=== PATIENT | male | born 1940 | race Caucasian/White ===

== ENCOUNTER 2018-11-22 07:32 | Emergency (ER) | payer OTHER, MEDICARE ==
--- OUTSIDE RECORDS SUMMARY | 2018-11-22 07:34 | XMS REPORT | Clinical Summary ---
:1940 Author Organization [facility] Address [address] [place] [address] Care Team Providers Name Role Phone Roosevelt Abdalla MD Primary Care Provider Allergies No Known Allergies Medications Medication Sig Dispensed Refills Start Date End Date Status rosuvastatin (CRESTOR) Take 40 mg by 0 Active 40 MG tablet mouth. valsartan-hydrochlorothi Take 1 tablet by 0 Active azide (DIOVAN-HCT) mouth. 160-12.5 mg per tablet pantoprazole (PROTONIX) Take 40 mg by 0 Active 40 MG EC tablet mouth. clopidogrel (PLAVIX) 300 Take 300 mg by 0 Active mg tablet mouth once. celecoxib (CeleBREX) 200 Take 200 mg by 0 Active MG capsule mouth 2 (two) times a day. docosahexanoic acid/epa Take by mouth. 0 Active (FISH OIL ORAL) Active Problems Problem Noted Date Spinal stenosis of lumbar region with neurogenic claudication 03/30/2018 Overview: Added automatically from request for surgery [id number] Spinal stenosis of lumbar region 03/30/2018 Overview: Added automatically from request for surgery [id number] Right lumbar radiculopathy 03/30/2018 Overview: Added automatically from request for surgery [id number] Encounters Date Type Specialty Care Team Description 06/22/2018 Office Visit Neurosurgery Jeffrey Ritchie Spinal stenosis of lumbar region with neurogenic claudication (Primary Dx); MD Huber Lumbar radiculopathy 04/14/2018 Surgery General Surgery Jeffrey Ritchie L2-3 MD Huber LAMINECTOMY/DECOMPRESSI ON WITH COFLEX STABILIZATION 04/14/2018 Anesthesia Event General Surgery Judith Cordero FNP-Jimmie 04/14/2018 Hospital Encounter General Surgery Jeffrey Ritchie Spinal stenosis of lumbar region with neurogenic claudication (Primary Dx); MD Huber Right lumbar radiculopathy 04/14/2018 Orders Only Neurosurgery Jeffrey Ritchie MD 03/30/2018 Hospital Encounter Radiology Jeffrey Ritchie MD 03/30/2018 Orders Only Neurosurgery Jeffrey Ritchie Spinal stenosis of lumbar region with neurogenic claudication (Primary Dx); MD Huber Spinal stenosis of lumbar region, unspecified whether neurogenic claudication present; Right lumbar radiculopathy 03/23/2018 Office Visit Neurosurgery Jeffrey Ritchie Spinal stenosis of lumbar region with neurogenic claudication (Primary Dx); MD Huber Spinal stenosis of lumbar region, unspecified whether neurogenic claudication present; Lumbar radiculopathy 01/01/2018 Consult Neurosurgery Jeffrey Ritchie Spinal stenosis of lumbar region with neurogenic claudication (Primary Dx); MD Huber Right lumbar radiculopathy after 11/21/2017 Family History Medical History Relation Name Comments Cancer Brother No Known Problems Brother Cancer Father Heart disease Mother Relation Name Status Comments Brother Brother Father Mother Sister Alive Social History Tobacco Use Types Packs/Day Years Used Date Never Smoker Smokeless Tobacco: Never Used Alcohol Use Drinks/Week oz/Week Comments Yes 35 Shots of liquor 21.0 Sex Assigned at Date Recorded Not on file Job Start Date Occupation Industry Not on file Not on file Not on file Travel History Travel Start Travel End No recent travel history available. Last Filed Vital Signs Vital Sign Reading Time Taken Blood Pressure 146/64 06/22/2018 2:08 PM [facility] Pulse 80 06/22/2018 2:08 PM [facility] Temperature 36.1 C (97 F) 04/14/2018 2:00 PM [facility] Respiratory Rate 16 04/14/2018 3:00 PM [facility] Oxygen Saturation 99% 04/14/2018 3:00 PM [facility] Inhaled Oxygen Concentration - - Weight 93 kg (205 lb) 06/22/2018 2:08 PM [facility] Height 167.6 cm (5' 6") 06/22/2018 2:08 PM [facility] Body Mass Index 33.09 06/22/2018 2:08 PM [facility] Plan of Treatment Health Maintenance Due Date Last Done Comments COLONOSCOPY SCREENING 02/03/1992 SHINGLES VACCINES (#1) 02/03/1992 65+ PNEUMOCOCCAL VACCINE (1 of 2 - PCV13) 2007 INFLUENZA VACCINE 11/18/2018 Implants Implanted Type Area Camp Advisor Device Shelf Model / Identifier Expiration Serial / Lot Date 8mm Coflex Implant - [id number] IMPLANT N/A: [employer] SPINE 2020 [id number] / Implanted: Qty: 1 on 04/14/2018 by Jeffrey Ritchie MD DEVICES N/A / [id number] Procedures Procedure Name Priority Date/Time Associated Comments Diagnosis OR FL > 1 HOUR Routine 04/14/2018 12:04 Results for this PM [facility] procedure are in the results section. AL AN ELECTIVE Routine 04/14/2018 10:27 ENDOTRACHEAL AIRWAY AM [facility] Procedure Note - Drake Duarte CRNA - 04/14/2018 10:27 AM [facility] ANESTHESIA INTUBATION Performed by: Drake Duarte CRNA Authorized by: Harpreet Shoer MD Location: OR Urgency: Elective Difficult Airway: No Anesthesiologist: Harpreet Shore MD Resident/TELECOM SALES CONSULTANT/AA: Drake Duarte CRNA Performed by: resident/TELECOM SALES CONSULTANT/AA Preoxygenated with 100% O2: Yes C-spine Precautions Maintained Throughout: Yes Mask Ventilation: Easy mask Final Airway Type: Endotracheal airway Final Endotracheal Airway: ETT Cuffed: Yes Technique Used: Direct laryngoscopy Devices/Methods Used in Placement: Intubating stylet Insertion Site: Oral Blade Type: Leiva Laryngoscope Blade/Videolaryngoscope Blade Size: 2 ETT Size (mm): 8.0 Cuff at minimum occlusion pressure: Yes Measured from: Teeth ETT to Teeth (cm): 22 Placement Verified by: CO2 detection and direct visualization Laryngoscopic view: Grade I - full view of glottis Rapid Sequence Induction (RSI): No Modified RSI: No Number of Attempts at Approach: 1 Atraumatic intubation, dentition and soft tissue remain unchanged. MRI SPINE EXTERNAL STUDY Routine 12/08/2017 3:27 PM CDT after 11/21/2017 Results OR FL > I Hour (04/14/2018 12:04 PM [facility]) Specimen Narrative Performed At EXAMINATION:OR FL 1 HOUR HM RADIANT C-arm fluoroscopy was requested in OR. L2-3 L [facility] OR 10 KODAK 6 14.38 mGy 40 sec IMPRESSION: Separate operative report will be issued by the physician performing the procedure. [id number] Procedure Note Hm Interface, Radiology Results Incoming - 04/14/2018 1:11 PM [facility] EXAMINATION: OR FL 1 HOUR C-arm fluoroscopy was requested in OR. L2-3 L [facility]I OR 10 KODAK 6 14.38 mGy 40 sec IMPRESSION: Separate operative report will be issued by the physician performing the procedure. [id number] Performing Organization Address City/[facility]/Zipcode Phone Number [facility] [address] [place] [address] MRI Spine External Study (12/08/2017 3:27 PM CDT) Specimen Narrative Performed At This exam was not acquired at a [facility] facility and has not been [facility] interpreted by a [facility] Provider.The exam was imported into our imaging system for comparisons purposes. Performing Organization Address [facility] Phone Number [facility] [address] [place] [address] after 11/21/2017 Insurance Payer Benefit Plan / Subscriber ID Effective Dates Phone Address Type Group MEDICARE MEDICARE PART A xxxxxxxxxxx 2007-[place], [place] Medicare AND B t AARP AARP SUPPLEMENT xxxxxxxxxxx 2016-Present Commercial Advance Directives Patient has advance care planning documents on file. For more information, please contact:[address] [place] [address]
--- OUTSIDE RECORDS SUMMARY | 2018-11-22 07:35 | XMS REPORT ---
:1940 [facility] Address [address] [place] [address] Dr. Garcia [address] [place] [id number] Care Team Providers Name Role Phone Unavailable Unavailable Unavailable Problems This patient has no known problems. Allergies, Adverse Reactions, Alerts This patient has no known allergies or adverse reactions. Medications This patient has no known medications.
[2018-11-22 08:20] LABS: Absolute Lymphocytes (CBC) 1.7 K/uL (0.7-4.9); Hematocrit 45.4 % (39.6-49.0); Lymphocytes % 22.7 % (15.3-44.8); MPV 7.8 fL (7.6-11.3)
[2018-11-22] MEDS ORDERED: THIAMINE 200 MG/2 ML INJ ONE (08:23)
[2018-11-22] MEDS ORDERED: NA CHLORIDE 0.9% 500 ML ONE (08:24)
[2018-11-22] MEDS ORDERED: FOLIC ACID 5 MG/ML VIAL ONE (08:25)
[2018-11-22 08:26] LABS: Protime INR 0.96
--- NOTE | 2018-11-22 08:40 | RAD REPORT ---
EXAM DESCRIPTION: CT - Head Brain Wo Cont - 11/22/2018 8:24 am CLINICAL HISTORY: Transient alteration of awareness COMPARISON: MRI January 2018 TECHNIQUE: Axial 5 mm thick images of the head were obtained without IV contrast. All CT scans are performed using dose optimization technique as appropriate and may include automated exposure control or mA/KV adjustment according to patient size. FINDINGS: No intracranial hemorrhage, mass, edema or shift of mid-line structures. No acute cortical based infarction. No cortical edema or sulcal effacement. A 2.3 centimeter area of diminished attenu ation lateral margin of the right frontal -parietal lobe junction has the appearance of remote CVA. T his involves cortical and subcortical tissue. Moderate atrophy changes are present. Moderate severity chronic ischemic change also present. No abnormal extra-axial fluid collections. Ventricles are in p roportion to the volume loss. Arterial tree and physiologic calcifications are present. Mastoid air cells and visualized portions of the paranasal sinuses are clear. No acute bony findings. IMPRESSION: No hemorrhage, mass, edema or emergent intracranial finding. No acute infarction changes are present. 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 Ventricular size is in proportion to the amount of volume loss.
[2018-11-22 08:57] LABS: ALT/SGPT 24 U/L (12-78); AST/SGOT 23 U/L (15-37); Albumin 3.9 g/dL (3.4-5.0); Alkaline Phosphatase 78 U/L (45-117); BUN Blood Urea Nitrogen 14 mg/dL (7-18); Bicarbonate 26 mmol/L (21-32); Bilirubin Direct 0.2 mg/dL (0-0.2); Bilirubin Total 0.8 mg/dL (0.2-1.0); Glucose Level 82 mg/dL (74-106); Magnesium 2.1 mg/dL (1.8-2.4); NT PRO-BNP 804 pg/mL (<450); Potassium 3.9 mmol/L (3.5-5.1); Protein, Total 7.4 g/dL (6.4-8.2); Sodium Level 142 mmol/L (136-145); Troponin (Emerg Dept Use Only) 0.05 ng/mL (0.0-0.045)
--- NOTE | 2018-11-22 09:22 | EKG ---
Test Date: 2018-11-22 Test Time: 08:14:03 Rubber Mill Operator: BRADFORD MEASUREMENT RESULTS: Intervals: Rate: 53 NJ: 154 QRSD: 94 QT: 460 QTc: 431 Vernon: P: 60 NJ: 154 QRS: 40 T: 30 INTERPRETIVE STATEMENTS: Sinus bradycardia Otherwise normal ECG Compared to ECG 03/18/2016 11:10:27 Sinus rhythm no longer present Electronically Signed On 11-22-18 09:21:27 CDT by Rod Hernandez
--- NOTE | 2018-11-22 09:35 | RAD REPORT ---
EXAM DESCRIPTION: RAD - Chest Single View - 11/22/2018 8:45 am CLINICAL HISTORY: Altered mental status, shortness of breath COMPARISON: November 02 TECHNIQUE: AP portable chest image was obtained 0840 hours . FINDINGS: Lung volumes are very low. Patient had difficulty cooperating with the examination regardi ng breath-holding. No peripheral mass or consolidation. Significant failure or volume overload are no t identifiable. Heart size is accentuated by the shallow inspiration. No vascular engorgement. No measurable pleural effusion and no pneumothorax. No acute bone finding. Bilateral shoulder prostheses in place. No acut e aortic findings suspected. IMPRESSION: Limited shallow inspiration film without acute cardiopulmonary finding.
--- NOTE | 2018-11-22 11:47 | RAD REPORT ---
EXAM DESCRIPTION: MRI - Brain Wo Cont - 11/22/2018 11:33 am CLINICAL HISTORY: Confusion/alteration of awareness COMPARISON: November 22, [address] TECHNIQUE: Axial, sagittal, and coronal magnetic images of the brain were obtained. Contrast was not requested FINDINGS: 3.3 centimeter area of abnormal signal is present within the junction of the right tempora l and right occipital lobes. It contains areas of cortical laminar necrosis. 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 Diffusion-weighted/ADC mapping does not reveal evidence of acute infarction. The ventricles are normal caliber. An extra-axial fluid collection is not present The sinuses are grossly clear. Mild signal within the left mastoids. IMPRESSION: 3.3 centimeter relatively old infarction junction with the right temporal occipital lobe s contains areas of cortical laminar necrosis Moderate signal within periventricular and deep white matter likely ischemic changes secondary to sma ll vessel disease
--- NOTE | 2018-11-22 11:54 | RAD REPORT ---
EXAM DESCRIPTION: MRI - MRA Head Wo Cont - 11/22/2018 11:33 am CLINICAL HISTORY: cva COMPARISON: None. TECHNIQUE: Magnetic resonance angiogram was performed. 3D MIPS reconstruction performed FINDINGS: The anterior cerebral, leftmiddle cerebral, posterior cerebral, distal internal carotid an d basilar arteries do not demonstrate a significant stenosis. origin left posterior cerebral artery Peripheral branch of a right middle cerebral artery diminished in caliber An aneurysm is not displayed. 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
--- NOTE | 2018-11-22 12:47 | ER ---
Nurse's Notes [facility] Name: Stewart Chavez Age: 78 yrs Sex: Male : 1940 Arrival Date: 11/22/2018 Time: 07:33 Bed 17 Private MD: Chay Christensen Diagnosis: Altered mental status, unspecified;Ataxia, unspecified;Aphasia Presentation: 11/22 07:55 Presenting complaint: states: Confusion that began yesterday morning. reports ss that patient has been ambulating slower, not remembering their dogs names, and just overall slower to respond. Reports that patient began taking Baclofen recently, and has only had 3 doses. Transition of care: patient was not received from another setting of care. Onset of symptoms was November 21, 2018. Risk Assessment: Do you want to hurt yourself or someone else? Patient reports no desire to harm self or others. Initial Sepsis Screen: Does the patient meet any 2 criteria? No. Patient's initial sepsis screen is negative. Does the patient have a suspected source of infection? No. Patient's initial sepsis screen is negative. Care prior to arrival: None. 07:55 Method Of Arrival: Ambulatory ss 07:55 Acuity: DARIUSZ 3 ss Triage Assessment: 07:55 General: Appears in no apparent distress. comfortable, Behavior is cooperative, bp appropriate for age, anxious. Pain: Denies pain. EENT: No deficits noted. 07:55 Neuro: Level of Consciousness is awake, obeys commands, confused. Cardiovascular: No bp deficits noted. Respiratory: No deficits noted. GI: No signs and/or symptoms were reported involving the gastrointestinal system. : No signs and/or symptoms were reported regarding the genitourinary system. Derm: No deficits noted. Musculoskeletal: No deficits noted. Historical: - Allergies: 07:58 No Known Allergies; ss - Home Meds: 07:58 Crestor 40 mg oral tab 1 tab once daily [Active]; valsartan-hydrochlorothiazide oral hj oral [Active]; Plavix 75 mg Oral tab 1 tab once daily [Active]; prolactin [Active]; B12 sublingual sublingual [Active]; baclofen 20 mg Oral tab 1 tab 3 times per day [Active]; - PMHx: 07:58 Atrial Fib; ss - PSHx: 07:58 Unable to obtain; hj - Immunization history:: Adult Immunizations up to date. - Social history:: Smoking status: Patient/guardian denies using tobacco, Patient uses alcohol, on a daily basis. reports patient has not had anything to drink in the past 2 days, but typically drinks two rum and coke drinks a night. - Ebola Screening: : Patient denies exposure to infectious person Patient denies travel to an Ebola-affected area in the 21 days before illness onset. Screenin:24 Abuse screen: Denies threats or abuse. Denies injuries from another. Nutritional bp screening: No deficits noted. Tuberculosis screening: No symptoms or risk factors identified. Fall Risk None identified. Assessment: 07:55 General: SEE TRIAGE NOTE. bp 08:48 Reassessment: PT RETURNED FROM CT AND CXR COMPLETE. UOP PENDING. bp 10:30 Reassessment: MRI AND UOP PENDING. bp 10:52 Reassessment: PT TO MRI. bp 11:42 Reassessment: PT RETURNED FROM MRI. bp 12:48 Reassessment: pt refused straight cath, in room;. hj 12:53 Reassessment: ADMIT IN PROCESS. bp 13:30 Reassessment: PT AGITATED, THREATENING STAFF WITH VIOLENCE IF THEY TAKE THE PROVIDED bp URINE SPECIMEN. 14:00 Reassessment: PER SPOUSE'S DIRECTION, URINE SPECIMEN OBTAINED DESPITE PT ATTEMPTING TO bp PUSH STAFF OUT OF ROOM. PT ELOPED FROM ER AND REFUSING TO RE-ENTER. CLEMENTE CANDELARIO CALLED. 14:09 Reassessment: Patient outside ER lobby. Security, senior data warehouse developer and Villa attempting to verbally redirect patient inside to ER. Patient agrees with transfer to [facility] for further evaluation, but does not want to go back into exam room. When asked why patient does not want to go back into room, he states, "because I feel like I need to go in there.". 14:31 Reassessment: PROVIDER AT [facility] TO SPEAK TO PT AND FAMILY. bp 15:02 Reassessment: PT ESCORTED BACK TO ROOM BY ATTENDING AND SECURITY. bp 15:32 Reassessment: PT COMBATIVE WITH STAFF WHILE BEING MEDICATED. REQUIRING PHYSICAL bp RESTRAINT BY STAFF TO PREVENT INJURY. 17:00 Reassessment: REPORT CALLED TO [facility] [place] FOR 1125, BOWEN RN. TRANSPORT PENDING. bp 18:19 Reassessment: [facility]S FOR TRANSPORT. bp Vital Signs: 07:58 BP 181 / 72; Pulse 56; Resp 15; Temp 97.6(TE); Pulse Ox 98% on R/A; Weight 90.72 kg; ss Height 5 ft. 6 in. (167.64 cm); Pain 0/10; 08:48 BP 159 / 68; Pulse 54; Resp 22; Pulse Ox 98% ; bp 10:31 BP 159 / 75; Pulse 56; Resp 22; Pulse Ox 99% ; bp 11:50 BP 158 / 73; Pulse 60; Resp 16; Pulse Ox 100% ; bp 13:00 BP 185 / 98; Pulse 75; Resp 16; Pulse Ox 98% ; bp 15:00 BP 135 / 67; Pulse 75; Resp 14; Pulse Ox 98% ; bp 16:30 BP 131 / 71; Pulse 73; Resp 14; Pulse Ox 97% ; bp 18:00 BP 123 / 59; Pulse 74; Resp 16; Temp 97.8; Pulse Ox 96% ; bp 07:58 Body Mass Index 32.28 (90.72 kg, 167.64 cm) ED Course: 07:33 Patient arrived in ED. mr 07:34 Chay Christensen MD is Private Physician. mr 07:46 Chay Dorsey, RN is Primary Nurse. bp 07:46 Villa Pitt NP is PHCP. pm1 07:46 Eugene Xiao MD is Attending Physician. pm1 07:57 Triage completed. ss 07:58 Arm band placed on right wrist. ss 08:08 Initial lab(s) drawn, by me, sent to lab. Inserted saline lock: 22 gauge in right hj antecubital area, using aseptic technique. Blood collected. 08:24 Patient has correct armband on for positive identification. Bed in low position. Call bp light in reach. Side rails up X2. 08:27 CT Head Brain wo Cont In Process Unspecified. EDMS 08:33 salicylate drawn by me and sent to lab. dh3 08:38 EKG done, by air technician. reviewed by Villa Pitt NP. at1 08:47 XRAY Chest (1 view) In Process Unspecified. EDMS 11:32 MRA Head Wo Cont In Process Unspecified. EDMS 11:32 Brain Wo Cont In Process Unspecified. EDMS 12:46 Brooke Durham MD is Hospitalizing Provider. pm1 18:20 No provider procedures requiring assistance completed. Patient transferred, IV remains bp in place. Administered Medications: 08:47 Drug: foLIC Acid 1 mg Route: IVPB; Site: right antecubital; bp 09:30 Follow up: IV Intake: 100ml bp 14:22 Follow up: IV Status: Completed infusion bp 08:47 Drug: Thiamine 100 mg Route: IV; Rate: calculated rate; Site: right antecubital; bp 14:21 Follow up: IV Status: Completed infusion; IV Intake: 100ml bp 08:47 Drug: NS 0.9% 500 ml Route: IV; Rate: bolus; Site: right antecubital; bp 09:30 Follow up: IV Status: Completed infusion; IV Intake: 500ml bp 15:09 Drug: Geodon 10 mg Route: IM; Site: right deltoid; ss 15:23 Follow up: Response: No adverse reaction bp 15:33 Follow up: Response: Anxiety decreased bp 16:00 Drug: SEROquel 50 mg Route: PO; bp 16:41 Follow up: Response: No adverse reaction bp Intake: 09:30 IV: 100ml; Total: 100ml. bp 09:30 IV: 500ml; Total: 600ml. bp 14:21 IV: 100ml; Total: 700ml. bp Outcome: 12:47 Decision to Hospitalize by Provider. pm1 13:26 ER care complete, transfer ordered by . pm1 18:20 Transferred by ground EMS to [facility], Transfer form bp completed. 18:20 Condition: stable 18:20 Instructed on the need for transfer. 18:24 Patient left the ED. bp Signatures: Dispatcher [employer] [facility] Audrey Valdez Shelby, RN RN ss Karo Powell, vocational rehabilitation administrator EKG Tat1 Arturo Villegas RN RN hj Marinas, Patrick, DIRECTOR OF RETAIL DIRECTOR OF RETAIL pm1 Adry Shore formerly [facility] Chay oDrsey RN RN bp Corrections: (The following items were deleted from the chart) 08:24 07:55 Neuro: bp bp
--- NOTE | 2018-11-22 12:48 | EDPHYS ---
Physician Documentation [facility] Name: Stewart Chavez Age: 78 yrs Sex: Male : 1940 Arrival Date: 11/22/2018 Time: 07:33 Bed 17 Private MD: Chay Christensen ED Physician Eugene Xiao HPI: 11/22 09:05 This 78 yrs old Male presents to ER via Ambulatory with complaints of pm1 Confused. 09:05 The patient presents with confusion. Onset: The symptoms/episode began/occurred pm1 Yesterday morning. Patient woke up with his symptoms yesterday: inability to recognize his dogs, confusion, wall and furniture walking. Possible causes: Baclofen, recently started on this medication for back pain. Has taken three doses, last dose 2100 last night. Associated signs and symptoms: Pertinent positives: confusion, numbness, palpitations, tingling, Pertinent negatives: abdominal pain, blurred vision, chest pain, shortness of breath. Current symptoms: In the emergency department the patient's symptoms are unchanged from the initial presentation. Patient's baseline: Neuro: alert and fully oriented, Motor: no deficits, Ambulation: walks without assistance. The patient has not experienced similar symptoms in the past. Seen by his Dr. Mcgrath about 2 weeks ago for a tremor. Historical: - Allergies: 07:58 No Known Allergies; ss - Home Meds: 07:58 Crestor 40 mg oral tab 1 tab once daily [Active]; valsartan-hydrochlorothiazide oral hj oral [Active]; Plavix 75 mg Oral tab 1 tab once daily [Active]; prolactin [Active]; B12 sublingual sublingual [Active]; baclofen 20 mg Oral tab 1 tab 3 times per day [Active]; - PMHx: 07:58 Atrial Fib; ss - PSHx: 07:58 Unable to obtain; hj - Immunization history:: Adult Immunizations up to date. - Social history:: Smoking status: Patient/guardian denies using tobacco, Patient uses alcohol, on a daily basis. reports patient has not had anything to drink in the past 2 days, but typically drinks two rum and coke drinks a night. - Ebola Screening: : Patient denies exposure to infectious person Patient denies travel to an Ebola-affected area in the 21 days before illness onset. ROS: 09:05 Constitutional: Negative for fever, chills, and weight loss, Eyes: Negative for injury, pm1 pain, redness, and discharge, ENT: Negative for injury, pain, and discharge, Neck: Negative for injury, pain, and swelling, Cardiovascular: Negative for chest pain, palpitations, and edema, Respiratory: Negative for shortness of breath, cough, wheezing, and pleuritic chest pain, Abdomen/GI: Negative for abdominal pain, nausea, vomiting, diarrhea, and constipation, Back: Negative for injury and pain, : Negative for injury, bleeding, discharge, and swelling, MS/Extremity: Negative for injury and deformity, Skin: Negative for injury, rash, and discoloration. 09:05 Neuro: Positive for altered mental status, Negative for loss of consciousness, numbness, tingling, weakness. Exam: 09:05 Constitutional: This is a well developed, well nourished patient who is awake, alert, pm1 and in no acute distress. Head/Face: Normocephalic, atraumatic. Eyes: Pupils equal round and reactive to light, extra-ocular motions intact. Lids and lashes normal. Conjunctiva and sclera are non-icteric and not injected. Cornea within normal limits. Periorbital areas with no swelling, redness, or edema. ENT: Nares patent. No nasal discharge, no septal abnormalities noted. Tympanic membranes are normal and external auditory canals are clear. Oropharynx with no redness, swelling, or masses, exudates, or evidence of obstruction, uvula midline. Mucous membranes moist. Neck: Trachea midline, no thyromegaly or masses palpated, and no cervical lymphadenopathy. Supple, full range of motion without nuchal rigidity, or vertebral point tenderness. No Meningismus. Chest/axilla: Normal chest wall appearance and motion. Nontender with no deformity. No lesions are appreciated. Cardiovascular: Regular rate and rhythm with a normal S1 and S2. No gallops, murmurs, or rubs. Normal PMI, no JVD. No pulse deficits. Respiratory: Lungs have equal breath sounds bilaterally, clear to auscultation and percussion. No rales, rhonchi or wheezes noted. No increased work of breathing, no retractions or nasal flaring. Abdomen/GI: Soft, non-tender, with normal bowel sounds. No distension or tympany. No guarding or rebound. No evidence of tenderness throughout. Back: No spinal tenderness. No costovertebral tenderness. Full range of motion. Skin: Warm, dry with normal turgor. Normal color with no rashes, no lesions, and no evidence of cellulitis. MS/ Extremity: Pulses equal, no cyanosis. Neurovascular intact. Full, normal range of motion. 09:05 Neuro: Orientation: to person, place, situation, Mentation: slow to respond, appears to have expressive aphasia, Cranial nerves: CN II- XII are normal as tested, extraocular movements are intact, Cerebellar function: Normal but slow to following commands, Motor: moves all fours, strength is normal, strength is 5/5 in all extremities, Sensation: is normal, no obvious gross deficits, seizure activity, is not displayed by the patient. Vital Signs: 07:58 BP 181 / 72; Pulse 56; Resp 15; Temp 97.6(TE); Pulse Ox 98% on R/A; Weight 90.72 kg; ss Height 5 ft. 6 in. (167.64 cm); Pain 0/10; 08:48 BP 159 / 68; Pulse 54; Resp 22; Pulse Ox 98% ; bp 10:31 BP 159 / 75; Pulse 56; Resp 22; Pulse Ox 99% ; bp 11:50 BP 158 / 73; Pulse 60; Resp 16; Pulse Ox 100% ; bp 13:00 BP 185 / 98; Pulse 75; Resp 16; Pulse Ox 98% ; bp 15:00 BP 135 / 67; Pulse 75; Resp 14; Pulse Ox 98% ; bp 16:30 BP 131 / 71; Pulse 73; Resp 14; Pulse Ox 97% ; bp 18:00 BP 123 / 59; Pulse 74; Resp 16; Temp 97.8; Pulse Ox 96% ; bp 07:58 Body Mass Index 32.28 (90.72 kg, 167.64 cm) ss MDM: 07:48 Patient medically screened. pm1 12:44 Data reviewed: vital signs. Data interpreted: Pulse oximetry: on room air is 100 %. pm1 Interpretation: normal. Counseling: I had a detailed discussion with the patient and/or guardian regarding: the historical points, exam findings, and any diagnostic results supporting the discharge/admit diagnosis, lab results, radiology results, the need for further work-up and treatment in the hospital. 13:15 Physician consultation: Mauricio Mcgrath MD was contacted at 13:15, regarding consult, pm1 patient's condition, Does not have admission privileges here, recommended contact Dr. Salgado to see if he is available for consult. 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 He just called drilling rig operator to reports his availability status. 13:25 ED course: Will transfer patient due to lack of neurology specialty. Patient in the pm1 [facility] system with Dr. Mcgrath therefore will send patient to [facility]. 15:35 Physician consultation: Neurologist [facility] was contacted at 15:30, regarding consult, pm1 patient's condition, and will see patient. 11/22 08:06 Order name: Basic Metabolic Panel; Complete Time: 09:06 pm1 11/22 08:06 Order name: CBC with Diff; Complete Time: 08:27 pm1 11/22 08:06 Order name: LFT's; Complete Time: 09:06 pm1 11/22 08:06 Order name: Magnesium; Complete Time: 09:06 pm1 11/22 08:06 Order name: NT PRO-BNP; Complete Time: 09:06 pm1 08 08:06 Order name: PT-INR; Complete Time: 08:48 pm1 11/22 08:06 Order name: Troponin (emerg Dept Use Only); Complete Time: 09:06 pm1 11/22 08:06 Order name: Acetaminophen; Complete Time: 09:06 pm1 11/22 08:06 Order name: ETOH Level; Complete Time: 09:29 pm1 11/22 08:06 Order name: Ptt, Activated; Complete Time: 08:48 pm1 11/22 08:06 Order name: Salicylate; Complete Time: 10:41 pm1 11/22 08:06 Order name: Urine Drug Screen; Complete Time: 14:36 pm1 11/22 08:06 Order name: Urine Microscopic Only; Complete Time: 14:36 pm1 11/22 10:55 Order name: CPK; Complete Time: 11:43 pm1 11/22 08:06 Order name: XRAY Chest (1 view); Complete Time: 10:41 pm1 11/22 08:06 Order name: EKG; Complete Time: 08:08 pm1 11/22 08:06 Order name: Cardiac monitoring; Complete Time: 08:10 pm1 08 08:06 Order name: EKG - Nurse/Tech; Complete Time: 08:27 pm1 08 08:06 Order name: IV Saline Lock; Complete Time: 08:10 pm1 08 08:06 Order name: CT Head Brain wo Cont; Complete Time: 08:48 pm1 11/22 11:05 Order name: MRA Head Wo Cont; Complete Time: 12:02 EDMS 11/22 11:06 Order name: Brain Wo Cont; Complete Time: 12:02 EDMS 11/22 14:15 Order name: Urine Dipstick--Ancillary (enter results); Complete Time: 14:36 bd 11/22 08:06 Order name: Labs collected and sent; Complete Time: 08:10 pm1 08 08:06 Order name: O2 Per Protocol; Complete Time: 08:10 pm1 11/22 08:06 Order name: O2 Sat Monitoring; Complete Time: 08:10 pm1 08 08:06 Order name: Urine Dipstick-Ancillary (obtain specimen); Complete Time: 14:23 pm1 EC:24 Rate is 53 beats/min. Rhythm is regular, Sinus bradycardia with No ectopy. No Q waves. pm1 T waves are Normal. No ST changes noted. Clinical impression: Sinus bradycardia. Administered Medications: 08:47 Drug: foLIC Acid 1 mg Route: IVPB; Site: right antecubital; bp 09:30 Follow up: IV Intake: 100ml bp 14:22 Follow up: IV Status: Completed infusion bp 08:47 Drug: Thiamine 100 mg Route: IV; Rate: calculated rate; Site: right antecubital; bp 14:21 Follow up: IV Status: Completed infusion; IV Intake: 100ml bp 08:47 Drug: NS 0.9% 500 ml Route: IV; Rate: bolus; Site: right antecubital; bp 09:30 Follow up: IV Status: Completed infusion; IV Intake: 500ml bp 15:09 Drug: Geodon 10 mg Route: IM; Site: right deltoid; ss 15:23 Follow up: Response: No adverse reaction bp 15:33 Follow up: Response: Anxiety decreased bp 16:00 Drug: SEROquel 50 mg Route: PO; bp 16:41 Follow up: Response: No adverse reaction bp Disposition: 11/23 07:51 Co-signature as Attending Physician, Eugene Xiao MD I agree with the assessment and wa plan of care. Disposition: 11/22/18 13:26 Transfer ordered to [facility]. Diagnosis are Altered mental status, unspecified, Ataxia, unspecified, Aphasia. - Reason for transfer: Higher level of care. - Accepting physician is [facility]. - Condition is Stable. - Problem is new. - Symptoms are unchanged. Signatures: Dispatcher [employer] EDMS Maliha Lopes, RN RN ss Arturo Villegas RN RN hj [place] Pitt, SERVICE OBSERVER CHIEF SERVICE OBSERVER CHIEF pm1 Eugene Xiao MD MD wa Peltier, Brian RN RN bp Corrections: (The following items were deleted from the chart) 11/22 11:04 09:02 MR STROKE PROTOCOL+MRI.RAD.BRZ ordered. EDMS EDMS 12:53 12:21 Pittman ordered. pm1 bp 13:25 12:47 Hospitalization Ordered by Brooke Durham MD for Observation. Preliminary diagnosis pm1 is Altered mental status, unspecified. Bed requested for Telemetry/MedSurg (observation). Status is Observation. Condition is Stable. Problem is new. Symptoms are unchanged. UTI on Admission? No. pm1 15:02 14:36 Bladder Scanner ordered. pm1 bp 18:24 13:26 11/22/2018 13:26 Transfer ordered to [facility]. Diagnosis is Altered mental bp status, unspecified; Ataxia, unspecified; Aphasia. Reason for transfer: Higher level of care. Accepting physician is [facility]. Condition is Stable. Problem is new. Symptoms are unchanged. pm1
[2018-11-22 14:27] LABS: Urine Bacteria <20 /HPF (NONE SEEN); Urine RBC <5 /HPF (NONE SEEN)
[2018-11-22 14:28] LABS: Urine Blood 1+ (NEG); Urine Glucose NEGATIVE (NEG); Urine Protein 2+ (NEG)
[2018-11-22 14:28] LABS: Urine Amorphous Sediment 1+ /HPF (NONE SEEN); Urine Culture Reflex Order NOT NEEDED; Urine Mucus 1+ /HPF (NONE SEEN)
[2018-11-22 14:33] LABS: Barbiturates NEGATIVE (NEGATIVE); Benzodiazepines NEGATIVE (NEGATIVE); Cocaine NEGATIVE (NEGATIVE); METHAMPHETAM NEGATIVE (NEGATIVE); Methadone NEGATIVE (NEGATIVE); Opiates NEGATIVE (NEGATIVE); Phencyclidine NEGATIVE (NEGATIVE); THC Cannibis NEGATIVE (NEGATIVE)
[2018-11-22] MEDS ORDERED: ZIPRASIDONE MESYLA 20 MG/VIAL IM ONE (14:36)
[2018-11-22] MEDS ORDERED: WATER FOR INJ,STERILE 10 ML ONE (14:36)
[2018-11-22] MEDS ORDERED: QUETIAPINE 25 MG TAB PO ONE (16:00)
[2018-11-22 19:34] VITALS: BP 123/59; TEMP 97.8; O2SAT 96
== END 2018-11-22 18:24 | disposition short-term general hospital (02) ==
LOC: ER 07:32
DX: R41.82 Altered mental status, unspecified (principal); R27.0 Ataxia, unspecified; R47.01 Aphasia; I48.91 Unspecified atrial fibrillation; Z79.01 Long term (current) use of anticoagulants
CPT/HCPCS: 96365; 96368; 93005; 85025; 80048; 36415; 80320; 83735; 82550; 80329 ×2; 85610; 80076; 80307 ×8; 85730; 84484; 83880; 70450; 71045; 70551; 70544; 96372; 99285; 96366; J3411; J3486; 81003; 81015

== ENCOUNTER 2019-03-11 06:41 | Day surgery (SDC) | payer OTHER, MEDICARE ==
[2019-03-09 12:47] LABS: Absolute Lymphocytes (CBC) 1.4 K/uL (0.7-4.9); Basophils % 1.3 % (0-1.3); Hematocrit 40.2 % (39.6-49.0); Lymphocytes % 17.6 % (15.3-44.8); MPV 8.5 fL (7.6-11.3); RBC Red Blood Cell Count 4.42 M/uL (4.33-5.43)
[2019-03-09 12:57] LABS: Potassium 3.9 mmol/L (3.5-5.1)
--- OUTSIDE RECORDS SUMMARY | 2019-03-11 06:44 | XMS REPORT | Summary of Care ---
:1940 Author Organization [facility] Address [address] [place] [id number] Care Team Providers Name Role Phone Chay Christensen Primary Care Provider Reason for Referral MRI/CAT Scan (Routine) Status Reason Specialty Diagnoses / Referred By Referred To Procedures Contact Contact Authorized Diagnostic Diagnoses Vascular parkinsonism Mauricio Coughlin Radiology Procedures MR BRAIN WO TIA Recinos MD [address] [place] [phone] Reason for Visit Reason Comments New Patient Tremors right hand Encounter Details Date Type Department Care Team Description 11/08/2018 [facility] Mauricio Coughlin Vascular parkinsonism ( Primary Dx); Neurology-Mil Recinos MD Mild cognitive impairment with memory loss [address], [address] [place] [phone] Allergies No Known Allergiesdocumented as of this encounter (statuses as of 11/22/2018) Medications Medication Sig Dispensed Refills Start Date End Date Status rosuvastatin 40 mg Take 40 mg by 0 Active tablet mouth. valsartan-hydrochlorothi Take 1 tablet by 0 Active azide 160-12.5 mg per mouth. tablet cabergoline 0.5 mg TAKE 1 TABLET BY 3 09/28/2018 Active tablet MOUTH TWO TIMES A WEEK clopidogrel 300 mg Take 300 mg by 0 Active tablet mouth. pantoprazole 40 mg EC Take 40 mg by 0 Active tablet mouth. COQ10, UBIQUINOL, ORAL Take 1 0 Active TAB-CAP/M2 by mouth daily. docosahexanoic acid/epa Take by mouth. 0 Active (FISH OIL ORAL) documented as of this encounter (statuses as of 11/22/2018) Active Problems Not on filedocumented as of this encounter (statuses as of 11/22/2018) Social History Tobacco Use Types Packs/Day Years Used Date Never Smoker Alcohol Use Drinks/Week oz/Week Comments Yes 28-35 Shots of liquor 16.8 - 21.0 Alcohol Habits Answer Date Recorded How often do you have a drink containing 4 or more times a week 11/08/2018 alcohol? How many drinks containing alcohol do you have Not asked 11/08/2018 on a typical day when you are drinking? How often do you have six or more drinks on one Not asked occasion? Sex Assigned at Date Recorded Not on file Job Start Date Occupation Industry Not on file Not on file Not on file Travel History Travel Start Travel End No recent travel history available. documented as of this encounter Last Filed Vital Signs Vital Sign Reading Time Taken Comments Blood Pressure 122/64 11/08/2018 9:09 AM CDT Pulse 55 11/08/2018 9:09 AM CDT Temperature 36.6 C (97.8 F) 11/08/2018 9:09 AM CDT Respiratory Rate 18 11/08/2018 9:09 AM CDT Oxygen Saturation - - Inhaled Oxygen Concentration - - Weight 90.7 kg (200 lb) 11/08/2018 9:09 AM CDT Height 167.6 cm (5' 6") 11/08/2018 9:09 AM CDT Body Mass Index 32.28 11/08/2018 9:09 AM CDT documented in this encounter Progress Notes Mauricio Coughlin MD - 11/08/2018 8:00 AM CDT I have verified the medical student documentation and/or findings, including the history, physical exam, and medical decision making. Additionally, I have personally performed or re-performed the physical exam and medical decision making activities of this patient's evaluation and management service. Mauricio Coughlin MD [facility] HISTORY OF PRESENT ILLNESS: Stewart Chavez is a 78 year old right handed male who presents for evaluation of tremor. Over the past 10 years, he has noticed a gradually increasing tremor in his hands. He has noticed it more in his left hand than his right. The tremor is present both at rest and with exertion. He has noticed it interfering most with fine motor manipulation like writing and turning a screwdriver. The tremor is constant, and he has not noticed anything that makes it better or worse. He has occasionally noticed himself dropping or knocking over things due to the tremor. He has had difficulty with balance for the past 20 years since being diagnosed with Meniere's disease. He walks slowly and takes precaution to avoid falls. He particularly has difficulty balancing in darkness, and uses a cane when he knows he will be walking in the dark. He reports difficulties with memory over the past 10 years, mostly small things , but has not had difficulty remembering names of people he has known for an extended period or gotten lost where he normally would not. 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 Current Outpatient Medications: cabergoline 0.5 mg tablet, TAKE 1 TABLET BY MOUTH TWO TIMES A WEEK, Disp: , Rfl: 3 clopidogrel 300 mg tablet, Take 300 mg by mouth., Disp: , Rfl: COQ10, UBIQUINOL, ORAL, Take 1 TAB-CAP/M2 by mouth daily., Disp: , Rfl: docosahexanoic acid/epa (FISH OIL ORAL), Take by mouth., Disp: , Rfl: pantoprazole 40 mg EC tablet, Take 40 mg by mouth., Disp: , Rfl: rosuvastatin 40 mg tablet, Take 40 mg by mouth., Disp: , Rfl: valsartan-hydrochlorothiazide 160-12.5 mg per tablet, Take 1 tablet by mouth., Disp: , Rfl: Family history: Colon cancer in father Surgical history: Cardiac catheterization with stent, umbilical hernia repair, bilateral shoulder repair Social History Socioeconomic History Marital status: Single Spouse name: Not on file Number of children: Not on file Years of education: Not on file Highest education level: Not on file Occupational History Not on file Social Needs Financial resource strain: Not on file Food insecurity: Worry: Not on file Inability: Not on file Transportation needs: Medical: Not on file Non-medical: Not on file Tobacco Use Smoking status: Never Smoker Substance and Sexual Activity Alcohol use: Yes Alcohol/week: 16.8 - 21.0 oz Types: 28 - 35 Shots of liquor per week Frequency: 4 or more times a week Drug use: Never Sexual activity: Not on file Lifestyle Physical activity: Days per week: Not on file Minutes per session: Not on file Stress: Not on file Relationships Social connections: Talks on phone: Not on file Gets together: Not on file Attends presybeterian service: Not on file Active member of club or organization: Not on file Attends meetings of clubs or organizations: Not on file Relationship status: Not on file Intimate partner violence: Fear of current or ex partner: Not on file Emotionally abused: Not on file Physically abused: Not on file Forced sexual activity: Not on file Other Topics Concern Not on file Social History Narrative Not on file ROS questions to the patient. Cardiac: chest pain, shortness of breath, easy fatigue, arrhythmia, swelling of legs. Respiratory: cough, with sputum production, wheezing, insomnia. G.I.: nausea, vomiting, diarrhea, poor appetite, blood in stool, difficult swallow. Urinary: pain with urination, blood with urination, incontinence, difficulty urinating. Skin: discoloration, itching, change in hair or nails, skin breakdown. Hematology/immunology: easy bruising, malignancy. Head, nose, throat: ringing of ears, loss of hearing, nosebleeds, sores in mouth, hoarseness, facial pain. Neurology: dizziness, tremor, change in speech, seizures, fainting spells, loss of memory, weakness arm or leg, numbness arm or leg, word finding defect. Endocrine: hot cold intolerance, excessive urination, increased thirst, increased sweating. Psychiatric: disorientation, depression, anxiety, mood disorder, loss of contact with reality, anger. Eyes: change in vision, eye pain, double vision, blurred vision, eyelid droop. Skeletal: pain in joints, muscle pain, back pain, neck pain, swelling of joints , swelling of the hands. Pertinent patient responses: Tremor, memory loss as per HPI. Vital signs: BP 122/64 | Pulse 55 | Temp 36.6 C (97.8 F) (Oral) | Resp 18 | Ht 5' 6" (1.676 m) | Wt 200 lb (90.7 kg) | BMI 32.28 kg/m Mental Status: well-kept and appears stated age, alert and oriented times three , cooperative during the exam, attention and concentration normal, salon receptionist and expression intact, fund of information normal, recent and remote memory intact, relaxed by reactions probably slower than would be expected. Cranial nerves (vision, eye movement): EOM intact, equal reactive pupils, accommodation reflex present, full visual gunter. Cranial nerves (face): normal mastication, facial sensation normal, facial motor normal, corneal reflex not done. Cranial nerves (taste, smell): taste intact by history, smell intact by history. Cranial nerve (hearing): normal conversational hearing, finger rub decreased on left. Cranial nerve (accessory): normal r/l sternomastoid bulk/tone/power. Shoulder shrug right and left normal. Cranial nerve (tongue): tongue bulk normal, tongue midline, palate centered. . Peripheral motor: Arms: Strength, power normal bilaterally. Tone slightly increased bilaterally. Legs: Strength, tone, power normal bilaterally. Reflexes: Arms: Triceps, biceps, brachioradialis 2+ on right, 3+ on left Legs: Patelllar, ankle jerks 2 + on right, 3+ on left. Toes downgoing bilaterally. Peripheral sensation: Arms: light touch intact, primary sharp touch normal, vibration symmetrical, proprioception normalbilaterally. Legs: light touch intact, primary sharp touch normal, Coordination: Bilateral finger tapping normal. Mild dysmetria when contact made on finger to nose. Slowness noted with alternating hand movements. Pill- rolling tremor present in both hands noted at rest. Gait: gait slow with small steps, no arm swing, Romberg positive Tandem walk markedly unsteady requiring support, unable to stand on either leg alone. HEENT: A/N, no oropharyngeal lesion present, JVD absent, thyromegaly absent, no lymphadenopathy present. Lungs: lungs clear, no wheezing, no rhonchi. Heart: CV RRR, no murmurs, carotid bruits absent. Peripheral vascular: no peripheral cyanosis, clubbing absent, no peripheral edema present, intact peripheral pulses, extremities warm to touch. Musculoskeletal: normal cervical ROM, normal lumbar range of motion, normal cervical torsional movements. No pain with spinal palpation. ICD-10-CM ICD-9-CM 1. 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 Mild cognitive impairment with memory loss G31.84 331.83 780.93 ASSESSMENT AND RECOMMENDATIONS: Vascular parkinsonism (primary encounter diagnosis) Comment: His presentation includes a classic Parkinsonian tremor, but his history indicates a slowerprogression than is expected for Parkinson's disease. Given his history of CAD he has increased atherosclerotic risk, and his asymmetrical reflexes suggest a vascular cause. Plan: MR BRAIN WO CONTRAST Mega Espinosa, [id number] signed by Mauricio Coughlin MD at 2018 1:12 PM CDTdocumented in this encounter Plan of Treatment Date Type Specialty Care Team Description 11/25/2018 Appointment Radiology Mauricio Coughlin MD [address] [place] [phone] 12/07/2018 Office Visit Neurology Mauricio Coughlin MD [address] [place] [phone] Name Type Priority Associated Diagnoses Order Schedule MR BRAIN WO CONTRAST IMAGING Routine Vascular parkinsonism Expected: 2018, Expires: 11/08/2019 Health Maintenance Due Date Last Done Comments DTaP,Tdap,and Td Vaccines (1 - Tdap) 1961 Zoster Recombinant Vaccine (SHINGRIX) (1 of 2) 02/03/1992 Medicare Wellness Visit 2007 PNEUMOCOCCAL VACCINES 65+ (1 of 2 - PCV13) 2007 INFLUENZA VACCINE 12/19/2018 documented as of this encounter Results Not on filedocumented in this encounter Visit Diagnoses Diagnosis Vascular parkinsonism - Primary Paralysis agitans Mild cognitive impairment with memory loss Mild cognitive impairment, so stated documented in this encounter Insurance Payer Benefit Plan / Subscriber ID Effective Dates Phone Address Type Group MEDICARE MEDICARE PART xxxxxxxxxxx 2007-[place] [phone] [address] [place] [address] [id number] JAMIR QUINONEZ [id number] documented as of this encounter
--- OUTSIDE RECORDS SUMMARY | 2019-03-11 06:44 | XMS REPORT | Summary of Care ---
:1940 Author Organization [facility] Address [address] [place] [address] Care Team Providers Name Role Phone Rachele Salgado Primary Care Provider Reason for Referral (Routine) Status Reason Specialty Diagnoses / Referred By Referred To Procedures Contact Contact New Request PN-NEUROLOGY Diagnoses Acute hypoactive medication-induced delirium Parkinsonism, unspecified Parkinsonism type Emeli Winkler, Procedures Discharge Follow-Up: Specialty Service PN-NEUROLOGY ; 4-[address] [place] [address] (Routine) Status Reason Specialty Diagnoses / Procedures Referred By Referred To Contact Contact New Request Diagnoses Acute hypoactive medication-induced delirium Parkinsonism, unspecified Parkinsonism type Emeli Winkler, Rachele Salgado Procedures Discharge Follow-up: PCP RACHELE SALGADO; [address] [place] [phone] [place], [place] Phone: [phone] Phone: (Routine) Status Reason Specialty Diagnoses / Referred By Referred To Procedures Contact Contact New Request EEG Diagnoses Confusion Emeli Winkler MD Procedures Electroencephalogram (EEG) - Duration of test: 20-[address] [place] [address] (Routine) Status Reason Specialty Diagnoses / Referred By Referred To Procedures Contact Contact New Request EEG Diagnoses Confusion Emeli Winkler MD Procedures Electroencephalogram (EEG) - Duration of test: 20-[address] [place] [address] Radiology Services ([facility]) Status Reason Specialty Diagnoses / Referred By Referred To Procedures Contact Contact New Request Diagnostic Diagnoses Confusion Emlei Winkler, Radiology Procedures XR CHEST 1 [address] [place] [address] Radiology Services ([facility]) Status Reason Specialty Diagnoses / Referred By Referred To Procedures Contact Contact New Request Diagnostic Diagnoses Confusion Emeli Winkler, Radiology Procedures XR CHEST [address] [place] [address] Reason for Visit Auth/Cert Status Reason Specialty Diagnoses / Referred By Referred To Procedures Contact Contact Neurological Surgery Diagnoses ams, ataxia, aphasia, dementia [address] [address] [place] [address] Encounter Details Date Type Department Care Team Description 11/22/2018 - Hospital Encounter Neurology/Neurological Emeli Winkler, Confusion 11/23/2018 Surgery ([facility] [address]) [address] [place] [address] [id number] [place] [address] [phone] Allergies Active Allergy Reactions Severity Noted Date Comments Zolpidem Hallucinations 11/22/2018 documented as of this encounter (statuses as of 11/23/2018) Medications Medication Sig Dispensed Refills Start Date End Date Status rosuvastatin 40 mg Take 40 mg by 0 Active tablet mouth. valsartan-hydrochlor Take 1 tablet 0 Active othiazide 160-12.5 by mouth. mg per tablet cabergoline 0.5 mg TAKE 1 TABLET 3 09/28/2018 Active tablet BY MOUTH TWO TIMES A WEEK pantoprazole 40 mg Take 40 mg by 0 Active EC tablet mouth. COQ10, UBIQUINOL, Take 1 0 Active ORAL TAB-CAP/M2 by mouth daily. docosahexanoic Take by 0 Active acid/epa (FISH OIL mouth. ORAL) clopidogrel 75 mg Take 1 tablet 90 tablet 1 11/24/2018 05/23/2019 Active tabletIndications: by mouth Confusion, Acute daily for 180 hypoactive days. medication-induced delirium, Parkinsonism, unspecified Parkinsonism type thiamine 100 mg Take 2 60 tablet 0 11/24/2018 12/24/2018 Active tabletIndications: tablets by Confusion, Acute mouth daily hypoactive for 30 days. medication-induced delirium, Parkinsonism, unspecified Parkinsonism type clopidogrel 300 mg Take 300 mg 0 11/23/2018 Discontinued tablet by mouth. documented as of this encounter (statuses as of 11/23/2018) Active Problems Problem Noted Date Confusion 11/22/2018 documented as of this encounter (statuses as of 11/23/2018) Immunizations Name Administration Dates Next Due Influenza Virus Vaccine 04/20/2018 Pneumococcal 13 Conjugate, PCV13 (Prevnar 13) 05/21/2018 documented as of this encounter Social History Tobacco Use Types Packs/Day Years [...] Sign Reading Time Taken Comments Blood Pressure 134/60 11/23/2018 4:00 PM CDT Pulse 65 11/23/2018 4:00 PM CDT Temperature 37 C (98.6 F) 11/23/2018 4:00 PM CDT Respiratory Rate 18 11/23/2018 4:00 PM CDT Oxygen Saturation 98% 11/23/2018 4:00 PM CDT Inhaled Oxygen Concentration - - Weight 90.7 kg (200 lb) 11/22/2018 11:00 PM CDT Height 170.2 cm (5' 7") 11/22/2018 11:00 PM CDT Body Mass Index 31.32 11/22/2018 11:00 PM CDT documented in this encounter Discharge Instructions AttachmentsThe following attachments cannot be sent through Care Everywhere.Stroke, Discharge Instructions for (Cuban)Stroke, Risk Factors for (Cuban)Stroke, Symptoms (Cuban)Stroke: Self-Care (Cuban)Stroke: Taking Medicines (Cuban)Cyanocobalamin, Vitamin B12 injection (Cuban)documented in this encounter Progress Notes Julia Cevallos RN - 11/23/2018 3:36 PM CDTCare Management Social Functional Assessment Patient Name: Stewart Chavez Age: [age] year old Sex: male Previous admit date: N/A Current diagnosis and co-morbidities: ams, ataxia, aphasia, dementia Readmission Questions: Was patient discharged from any acute care hospital within the last 30 days: No Social Functional Assessment: Primary language spoken/preferred: Cuban Mental Status: Alert & Oriented to Person,Place & Time Information given by: Self Patient's support system: Spouse Name and number of support system: Spouse: Ling Naranjo [phone] Primary Golf Caddy: Self MPOA: No;Same as support system Living Arrangement: Home: multiple stories Address of living arrangement : [address] [place] [address] Persons living in home: Self;Spouse Names & numbers of persons living in home: Spouse: Ling Dyerarlene [phone] Barriers to returning home: None Baseline functional status- ambulation: Independent Functional status-baseline personal care: Independent Baseline functional status- driving: Independent Baseline functional status- grocery shopping: Independent Functional status-baseline housekeeping: Independent Functional status-baseline meal prep: Independent Current functional status same as prior: Yes Do you have a PCP?: Yes Name of PCP: PCP: Rachele Salgado Home Health Care Agency: No Provider Services: No DME Company: No Equipment: Cane(for long distance) Hemodialysis: No Community resources utilized: None Funding Resources: Medicare A & B Prescription coverage plan: Medicare Part D Pharmacy where meds are filled: Other Other pharmacy: [facility] [place] Anticipated services prior to disharge: Continue Medical Eval;FEI/TTE;Lab Values Expected mode of discharge transportation: Family Name and phone number of the friend or family member picking up the patient: Spouse: Ling [phone] Additional Recommendations for DC: Spouse to take him home at dc Spouse: Ling Naranjo [phone] Additional info required for discharge planning: Pending medical evaluation Recommended discharge plan: Home SFA Complete: Social Functional Assessment complete: Yes Alcohol Use Screening (AUDIT-C) How often do you have a drink containing alcohol?: 4 or more times a week SCORE: 4 How many drinks containing alcohol do you have on a typical day when you are drinking?: 3 or 4 drinks How often do you have six or more drinks on one occasion?: Never Total Score (AUDIT-C): 5 Did patient elect to have resources provided: No Actions taken: Provided support Role of Care Management explained. documented in this encounter Plan of Treatment Date Type Specialty Care Team Description 11/25/2018 Appointment Radiology Mauricio Coughlin MD [address] [place] [phone] 12/07/2018 Office Visit Neurology Mauricio Coughlin MD [address] [place] [phone] Name Type Priority Associated Diagnoses Date/Time VITAMIN B1 (THIAMINE), LAB Routine 11/22/2018 10:43 PM CDT WHOLE BLOOD URINE CULTURE LAB Routine 11/22/2018 10:43 PM CDT METHYLMALONIC ACID, SERUM LAB Routine 11/23/2018 1:03 PM CDT Name Type Priority Associated Order Schedule Diagnoses Prothrombin Time (PT) / LAB Routine ONCE for 1 INR Occurrences starting 11/22/2018 until 11/22/2018 aPTT LAB Routine ONCE for 1 Occurrences starting 11/22/2018 until 11/22/2018 EKG-12 LEAD ROUTINE HEART STATION Routine ONCE for 1 Occurrences starting 11/22/2018 until 11/22/2018 VITAMIN B1 (THIAMINE), LAB Routine ONCE for 1 WHOLE BLOOD Occurrences starting 11/22/2018 until 11/22/2018 URINE CULTURE LAB Routine ONCE for 1 Occurrences starting 11/22/2018 until 11/22/2018 METHYLMALONIC ACID, LAB Routine ONCE for 1 SERUM Occurrences starting 11/23/2018 until 11/23/2018 Health Maintenance Due Date Last Done Comments DTaP,Tdap,and Td Vaccines (1 - Tdap) 1961 Zoster Recombinant Vaccine (SHINGRIX) (1 of 2) 02/03/1992 Medicare Wellness Visit 2007 INFLUENZA VACCINE 12/19/2018 04/20/2018 PNEUMOCOCCAL VACCINES 65+ (2 of 2 - PPSV23) 05/21/2019 05/21/2018 documented as of this encounter Implants Implanted Type Area Training Development Specialist Device Identifier Shelf Expiration Model / Date Serial / Lot Plate PLATE Back Shoulder SHOULDER Stent STENT Heart documented as of this encounter Procedures Procedure Name Priority Date/Time Associated Comments Diagnosis LIPID PANEL (81459)(TOTAL Routine 11/23/2018 1:57 Results for this CHOLESTEROL, TRIGLYCERIDES, AM CDT procedure are in HDL) the results section. COMP. METABOLIC PANEL Routine 11/23/2018 1:57 Results for this (63370) AM CDT procedure are in the results section. MAGNESIUM Routine 11/23/2018 1:57 Results for this AM CDT procedure are in the results section. CREATINE KINASE Routine 11/23/2018 1:57 Results for this AM CDT procedure are in the results section. PHOSPHORUS Routine 11/23/2018 1:57 Results for this AM CDT procedure are in the results section. FOLATE Routine 11/23/2018 12:20 Results for this AM CDT procedure are in the results section. ELECTROENCEPHALOGRAM Routine 11/23/2018 Confusion PROTHROMBIN TIME / INR Routine 11/22/2018 11:39 Results for this PM CDT procedure are in the results section. GLYCOSYLATED HEMOGLOBIN Routine 11/22/2018 10:58 Results for this (A1C) PM CDT procedure are in the results section. CBC WITH DIFFERENTIAL Routine 11/22/2018 10:52 Results for this PM CDT procedure are in the results section. CBC WITH DIFF Routine 11/22/2018 10:52 Results for this PM CDT procedure are in the results section. SEDIMENTATION RATE Routine 11/22/2018 10:52 Results for this PM CDT procedure are in the results section. SERUM DRUG (IMMUNOASSAY) - Routine 11/22/2018 10:52 Results for this COMPREHENSIVE DRUG SCREEN PM CDT procedure are in the results section. THYROID STIMULATING HORMONE Routine 11/22/2018 10:46 Results for this PM CDT procedure are in the results section. TROPONIN I Routine 11/22/2018 10:46 Results for this PM CDT procedure are in the results section. VITAMIN B12, LEVEL Routine 11/22/2018 10:46 Results for this PM CDT procedure are in the results section. URINALYSIS Routine 11/22/2018 10:43 Results for this PM CDT procedure are in the results section. XR CHEST 1 VW TOMAS 11/22/2018 8:57 Confusion Results for this PM CDT procedure are in the results section. documented in this encounter Results LIPID PANEL (14565)(TOTAL CHOLESTEROL, TRIGLYCERIDES, HDL) (11/23/2018 1:57 AM CDT) CHOL 102 (L) 120 - 200 mg/dL [facility] HDL 38 (L) >40 mg/dL [facility] HDLC RATIO 2.7 <=5.0 [facility] TRIG 191 (H) 30 - 170 mg/dL [facility] LDL CHOL 26 <=160 mg/dL [facility] VLDL 38 5 - 60 mg/dL [facility] Specimen Blood - WRIST, LEFT Performing Organization Address City/State/Zipcode Phone Number [facility] CLIA: [id number], [address] [place] [address] [facility] COMP. METABOLIC PANEL (51325) (11/23/2018 1:57 AM CDT) NA 140 135 - 145 [facility] mmol/L SERVICES K 3.5 3.5 - 5.0 [facility] mmol/L SERVICES CL 108 98 - 108 mmol/L [facility] CO2 TOTAL 25 23 - 31 mmol/L [facility] AGAP 7 2 - 16 [facility] BUN 16 7 - 23 mg/dL [facility] GLUCOSE 133 (H) 70 - 110 mg/dL [facility] CREATININE 1.63 (H) 0.60 - 1.25 [facility] mg/dL SERVICES TOTAL BILI 0.7 0.1 - 1.1 mg/dL [facility] CALCIUM 9.6 8.6 - 10.6 [facility] mg/dL SERVICES T PROTEIN 6.5 6.3 - 8.2 g/dL [facility] ALBUMIN 3.6 3.5 - 5.0 g/dL [facility] ALK PHOS 58 34 - 122 U/L [facility] ALT(SGPT) 18 9 - 51 U/L [facility] AST(SGOT) 28 13 - 40 U/L [facility] eGFR Calculation 41.3 mL/min/1.73m2 [facility] (Non- SERVICES [place]ayan) eGFR Calculation 50.1 mL/min/1.73m2 [facility] () SERVICES Specimen Blood - WRIST, LEFT Narrative Performed At Association of Glomerular Filtration Rate (GFR) and Staging [facility] of Kidney Disease* + + + + | GFR (mL/min/1.73 m2)| With Kidney Damage|Without Kidney Damage + + + + |>90|Stage one| Normal + + + + |60-89|Stage two| Decreased GFR + + + + |30-59|Stage three| Stage three + + + + |15-29|Stage four | Stage four + + + + |<15 (or dialysis)|Stage five | Stage five + + + + *Each stage assumes the associated GFR level has been in effect for at least three months.Stages 1 to 5, with or without kidney disease, indicate chronic kidney disease. Notes: Determination of stages one and two (with eGFR >59mL/min/1.73 m2) requires estimation of kidney damage for at least three months as defined by structural or functional abnormalities of the kidney, manifested by either: Pathological abnormalities or Markers of kidney damage (including abnormalities in the composition of the blood or urine or abnormalities in imaging tests). Performing Organization Address [facility] Phone Number [facility] CLIA: [id number], [address] [place], [place] [address] [facility] Creatine Kinase (CK) (11/23/2018 1:57 AM CDT) CK 43 33 - 194 U/L [facility] Specimen Blood - WRIST, LEFT Performing Organization Address [facility] Phone Number [facility] CLIA: [id number], [address] [place] [phone] [facility] Phosphorus Serum (11/23/2018 1:57 AM CDT) PHOSPHORUS 3.3 2.5 - 5.0 mg/dL [facility] Specimen Blood - WRIST, LEFT Performing Organization Address [facility] Phone Number [facility] CLIA: [id number], [address] [place], [place] [address] [facility] Magnesium Serum (11/23/2018 1:57 AM CDT) MAGNESIUM 2.0 1.7 - 2.4 mg/dL [facility] Specimen Blood - WRIST, LEFT Performing Organization Address City/[facility]/Zipcode Phone Number [facility] CLIA: [id number], [address] [place] [address] [facility] FOLATE (11/23/2018 12:20 AM CDT) FOLATE SER >20.0 (H) 3.0 - 20.0 ng/mL [facility] Specimen Blood - LINE, VENOUS Performing Organization Address [facility] Phone Number [facility] CLIA: [id number], [address] [place] [address] [phone] [facility] Electroencephalogram (EEG) - Duration of test: 20-60 mins (11/23/2018) Narrative Performed At Date and Time of Procedure: 11/23/2018, 11:19:44-11:41:57 REPORT TECHNICAL SUMMARY: The EEG was recorded digitally. Electrodes were applied using the International 10/20 System of electrode placement. Eye movements, respiratory excursions and rhythm strip ECG were monitored on separate channels of the ongoing EEG recording. The occipital dominant rhythm consists of moderate amplitude 8 Hz activity. More anteriorly, similar as well as faster frequencies are present, including low amplitude 18-22 Hz activities in the anterior leads. There is an excessive amount of 4-8 Hz activity diffusely. Drowsiness and sleep do not reveal additional abnormalities. Photic stimulation does not elicit any abnormalities. Hyperventilation is not employed as activation technique. The ECG lead shows abundant abnormal-appearing waveforms which appear to possibly be PVCs. IMPRESSION: This study is abnormal due to: 1) mild diffuse slowing, suggestive of a mild diffuse disturbance in cerebral function. 2) abundant abnormal-appearing ECG waveforms which appear to possibly be PVCs, and would be better assessed by a more appropriate method of cardiac monitoring. No electrographic seizures or epileptiform abnormalities are seen. The absence of epileptiform abnormalities in one EEG does not necessarily rule out a diagnosis of epilepsy or the potential for epileptic seizures, however. The diagnostic sensitivity can be enhanced by a repeat study, which would be appropriate if clinically indicated. Ernie Edwards MD Date of interpretation: 11/23/2018 PROTHROMBIN TIME / INR (11/22/2018 11:39 PM CDT) PROTIME PATIENT 11.9 10.1 - 12.6 [facility] Seconds SERVICES INR 1.1Comment: Normal [facility] INR <1.1; Warfarin SERVICES Therapeutic range 2.0 to 3.0 or 2.5 to 3.5, depending upon the indications. Specimen Blood - LINE, VENOUS Performing Organization Address City/State/Zipcode Phone Number [facility] CLIA: [id number], [address] [place] [address] [phone] [facility] GLYCOSYLATED HEMOGLOBIN (A1C) (11/22/2018 10:58 PM CDT) Pathologist [facility] HGB A1C 4.8 4.0 - 6.0 % [facility] Specimen Blood - LINE, VENOUS Performing Organization Address City/State/Zipcode Phone Number [facility] CLIA: [id number], [address] [place] [address] [facility] CBC WITH DIFFERENTIAL (11/22/2018 10:52 PM CDT) Pathologist [facility] WBC 5.84 4.20 - 10.70 [facility] 10*3/L SERVICES RBC 4.77 4.26 - 5.52 [facility] 10*6/L SERVICES HGB 14.0 12.2 - 16.4 [facility] g/dL SERVICES HCT 44.0 38.4 - 49.3 % [facility] MCV 92.2 81.7 - 95.6 fL [facility] MCH 29.4 26.1 - 32.7 pg [facility] MCHC 31.8 31.2 - 35.0 [facility] g/dL SERVICES RDW-SD 53.8 (H) 38.5 - 51.6 fL [facility] RDW-CV 16.3 (H) 12.1 - 15.4 % [facility] PLT 155 150 - 328 [facility] 10*3/L SERVICES MPV 10.4 9.8 - 13.0 fL [facility] NRBC/100 WBC 0.0 0.0 - 10.0 /100 [facility] WBCs SERVICES NRBC x10^3 <0.01 10*3/L [facility] GRAN MAT (NEUT) % 66.6 % [facility] IMM GRAN % 0.30 % [facility] LYMPH % 19.2 % [facility] MONO % 8.9 % [facility] EOS % 4.8 % [facility] BASO % 0.2 % [facility] GRAN MAT x10^3(ANC) 3.89 1.99 - 6.95 [facility] 10*3/uL SERVICES IMM GRAN x10^3 <0.03 0.00 - 0.06 [facility] 10*3/uL SERVICES LYMPH x10^3 1.12 1.09 - 3.23 [facility] 10*3/uL SERVICES MONO x10^3 0.52 0.36 - 1.02 [facility] 10*3/uL SERVICES EOS x10^3 0.28 0.06 - 0.53 [facility] 10*3/uL SERVICES BASO x10^3 <0.03 0.01 - 0.09 [facility] 10*3/uL SERVICES Specimen Blood - LINE, VENOUS Performing Organization Address City/[facility]/Zipcode Phone Number [facility] CLIA: [id number], [address] [place] [address] [facility] Sedimentation Rate - Westergren (11/22/2018 10:52 PM CDT) ESR 12 (H) 0 - 10 mm/HR [facility] Specimen Blood - LINE, VENOUS Performing Organization Address City/[facility]/Zipcode Phone Number [facility] CLIA: [id number], [address] [place] [address] [facility] Serum Drug (Immunoassay) - Comprehensive Drug Screen (11/22/2018 10:52 PM CDT) ANGELICA S Negative Negative [facility] BENZO S Negative Negative [facility] TRICYCLIC Negative Negative [facility] Specimen Blood - LINE, VENOUS Narrative Performed At Serum Drug Screen Cutoff Ranges [facility] Barbiturates - 3 mcg/mL Benzodiazepines- 50 ng/mL TCA- 300 ng/mL Test developed and characteristics determined by [facility]. The results are to be used only for medical (i.e., treatment) purposes. Unconfirmed screening results must not be used for non-medical purposes (e.g., employment testing, legal testing). Performing Organization Address City/State/Zipcode Phone Number [facility] CLIA: [id number], [address] [place] [address] [phone] [facility] Vitamin B12 Level (11/22/2018 10:46 PM CDT) VIT B12 209 (L) 240 - 930 pg/mL [facility] Specimen Blood - LINE, VENOUS Narrative Performed At Biotin has been reported to cause a positive bias, interpret [facility] results relative to patient's use of biotin. Performing Organization Address City/[facility] Phone Number [facility] CLIA: [id number], [address] [place] [phone] [facility] Thyroid Stimulating Hormone (11/22/2018 10:46 PM CDT) TSH 4.38 0.45 - 4.70 mIU/L [facility] Specimen Blood - LINE, VENOUS Performing Organization Address [facility] Phone Number [facility] CLIA: [id number], [address] [place] [address] [facility] Troponin I (11/22/2018 10:46 PM CDT) TROPONIN I 0.064 (H)Comment: <=0.034 ng/mL [facility] Hemolyzed specimen SERVICES Specimen Blood - LINE, VENOUS Narrative Performed At Equal or Less than 0.034 ng/ml---Normal [facility] Note: Cardiac troponin begins to rise 3-4 hours after the onset of ischemia. Repeat in 4-6 hours if the sample was drawn within 3-4 hours of the onset of the symptom and found normal. Between 0.035 and 0.120 ng/mL--- Borderline. Questionable myocardial injury or necrosis Note: Serial measurement may be necessary to confirm or exclude the diagnosis of myocardial injury or necrosis; Clinical correlation (symptoms, EKGs, imaging studies, and others) required; Repeat in 4-6 hours if clinically indicated. Equal or Higher than 0.121 ng/mL---Abnormal. Myocardial Injury or Necrosis Likely Biotin has been reported to cause a negative bias, interpret results relative to patient's use of biotin. Performing Organization Address City/[facility] Phone Number [facility] CLIA: [id number], [address] [place] [address] [phone] [facility] Urinalysis (11/22/2018 10:43 PM CDT) APPEARANCE Hazy (A) Clear [facility] COLOR Yellow Yellow [facility] PH 6.0 4.8 - 8.0 [facility] SP GRAVITY 1.010 1.003 - 1.030 [facility] GLU U QUAL Normal Normal [facility] BLOOD 1+ (A) Negative [facility] KETONES 5 mg/dL (A) Negative [facility] PROTEIN 30 mg/dL (A) Negative [facility] UROBILIN Normal Normal [facility] BILIRUBIN Negative Negative [facility] NITRITE Negative Negative [facility] LEUK ADRIAN Negative Negative [facility] RBC/HPF 1 0 - 3 [facility] WBC/HPF 1 0 - 5 HPF [facility] BACTERIA Negative Negative [facility] MUCOUS Slight (A) Negative LPF [facility] AMORPHOUS Rare Rare HPF [facility] SQ EPITH <1 <=2 HPF [facility] Specimen Urine - URINE, CLEAN CATCH Performing Organization Address [facility] Phone Number [facility] CLIA: [id number], [address] [place] [address] [phone] [facility] XR CHEST 1 VW (11/22/2018 8:57 PM CDT) Specimen Narrative Performed At HISTORY: Baseline. PACS/VR/DOSE TECHNIQUE: 2 AP views of the chest are obtained. FINDINGS: No acute pneumonia. No pneumothorax or pleural effusion or pulmonary congestion detected. Cardiac size is within upper normal limits. Bilateral glenohumeral joint metallic prosthesis noted. Slightly displaced fractures are seen in the mid to posterior axillary segment of left eighth and ninth ribs. CONCLUSIONS: No signs of acute cardiopulmonary disease. Procedure Note [facility], Radiant Results Inft User - 11/22/2018 9:33 PM CDT HISTORY: Baseline. TECHNIQUE: 2 AP views of the chest are obtained. FINDINGS: No acute pneumonia. No pneumothorax or pleural effusion or pulmonary congestion detected. Cardiac size is within upper normal limits. Bilateral glenohumeral joint metallic prosthesis noted. Slightly displaced fractures are seen in the mid to posterior axillary segment of left eighth and ninth ribs. CONCLUSIONS: No signs of acute cardiopulmonary disease. Performing Organization Address City/State/Zipcode Phone Number PACS/VR/DOSE documented in this encounter Visit Diagnoses Diagnosis Acute hypoactive medication-induced delirium - Primary Confusion Unspecified psychosis Parkinsonism, unspecified Parkinsonism type documented in this encounter Administered Medications Medication Order MAR Action Action Date Dose Rate Site clopidogrel (PLAVIX) tablet 75 mg Given 11/23/2018 9:00 AM CDT 75 mg 75 mg, Oral, DAILY, First dose on Thu11/23/18 at 0900, Until Discontinued, Routine metoprolol tartrate (LOPRESSOR) half tablet Given 11/22/2018 11:06 PM CDT 12.5 mg 12.5 mg 12.5 mg, Oral, BID, First dose on Thu11/22/18 at 2315, Until Discontinued, Routine NaCl 0.9% (NS) IV infusion 1,000 New Bag 11/22/2018 11:01 PM CDT 1,000 mL 75 mL/hr mL at 75 mL/hr, IV Infusion, CONTINUOUS, Starting Thu11/22/18 at 2030, Until Discontinued, Routine pantoprazole (PROTONIX) EC tablet 40 mg Given 11/23/2018 9:00 AM CDT 40 mg 40 mg, Oral, DAILY, First dose on Thu11/23/18 at 0900, Until Discontinued, Routine rosuvastatin (CRESTOR) tablet 40 mg Given 11/22/2018 11:02 PM CDT 40 mg 40 mg, Oral, QHS, First dose on Thu11/22/18 at 2100, Until Discontinued, Routine thiamine (VITAMIN B1) tablet 200 mg 200 mg, Oral, DAILY, First dose on Thu11/24/18 at 0900, Until Discontinued, Routine Medication Order MAR Action Action Date Dose Rate Site cyanocobalamin (VITAMIN Given 11/23/2018 1:32 1,000 mcg Right Deltoid-IM B12) injection 1,000 mcg PM CDT 1,000 mcg, Intramuscular, ONCE, 1 dose, Thu11/23/18 at 1145, Routine thiamine (VITAMIN B1) 300 mg in NaCl 0.9% Given 11/22/2018 11:06 PM CDT 300 mg (NS) piggyback IV Piggyback, DAILY, First dose on Thu11/22/18 at 2115, Until Discontinued, 50 mL documented in this encounter Insurance Payer Benefit Plan / Subscriber ID Effective Phone Address Type Group Dates MEDICARE MEDICARE PART xxxxxxxxxxx 2007-Pr [phone] [address] Medicare A & B esent [id number] JAMIR QUINONEZ [id number] [facility] [id number] 2018-Pre [address] Medicare HEALTHCARE HEALTHCARE sent [id number] Supplement [place] SUPPLEMENT JAMIR ABDULLAHI [id number] documented as of this encounter
--- OUTSIDE RECORDS SUMMARY | 2019-03-11 06:44 | XMS REPORT ---
:1940 [facility] Address [address] [place] [address] Dr. Garcia [address] [place] [address] Care Team Providers Name Role Phone Unavailable Unavailable Unavailable Problems This patient has no known problems. Allergies, Adverse Reactions, Alerts This patient has no known allergies or adverse reactions. Medications This patient has no known medications.
--- OUTSIDE RECORDS SUMMARY | 2019-03-11 06:45 | XMS REPORT | Summary of Care ---
:1940 Author Organization [facility] Address [address] [place] [address] Care Team Providers Name Role Phone Chay Christensen Primary Care Provider Encounter Details Date Type Department Care Team Description 12/12/[address] [facility] Doctor Unassigned, No [address] [facility] [place] [address] [address] [place] [address] Allergies Active Allergy Reactions Severity Noted Date Comments Zolpidem Hallucinations 11/22/2018 documented as of this encounter (statuses as of 12/12/2018) Medications Medication Sig Dispensed Refills Start Date End Date Status rosuvastatin 40 mg Take 40 mg by 0 Active tablet mouth. valsartan-hydrochloroth Take 1 tablet 0 Active iazide 160-12.5 mg per by mouth. tablet cabergoline 0.5 mg TAKE 1 TABLET 3 09/28/2018 Active tablet BY MOUTH TWO TIMES A WEEK pantoprazole 40 mg EC Take 40 mg by 0 Active tablet mouth. COQ10, UBIQUINOL, ORAL Take 1 0 Active TAB-CAP/M2 by mouth daily. docosahexanoic acid/epa Take by mouth. 0 Active (FISH OIL ORAL) clopidogrel 75 mg Take 1 tablet 90 tablet 1 11/24/2018 05/23/2019 Active tabletIndications: by mouth daily Confusion, Acute for 180 days. hypoactive medication-induced delirium, Parkinsonism, unspecified Parkinsonism type thiamine 100 mg Take 2 tablets 60 tablet 0 11/24/2018 12/24/2018 Active tabletIndications: by mouth daily Confusion, Acute for 30 days. hypoactive medication-induced delirium, Parkinsonism, unspecified Parkinsonism type documented as of this encounter (statuses as of 12/12/2018) Active Problems Problem Noted Date Confusion 11/22/2018 documented as of this encounter (statuses as of 12/12/2018) Immunizations Name Administration Dates Next Due Influenza [...] of this encounter Last Filed Vital Signs Not on filedocumented in this encounter Plan of Treatment Health Maintenance Due Date Last Done Comments DTaP,Tdap,and Td Vaccines (1 - Tdap) 1959 Zoster Recombinant Vaccine (SHINGRIX) (1 of 2) 02/03/1992 Medicare Wellness Visit 2007 INFLUENZA VACCINE (#1) 2018 04/20/2018 PNEUMOCOCCAL VACCINES 65+ (2 of 2 - PPSV23) 05/21/2019 05/21/2018 documented as of this encounter Implants Implanted Type Area Senior Power Scheduler Device Identifier Shelf Expiration Model / Date Serial / Lot Plate PLATE Back Shoulder SHOULDER Stent STENT Heart documented as of this encounter Procedures Procedure Name Priority Date/Time Associated Diagnosis Comments EXTERNAL PROVIDER Routine 12/12/2018 12:01 AM CDT RECORDS documented in this encounter Results Not on filedocumented in this encounter Insurance Payer Benefit Plan / Subscriber ID Effective Phone Address Type Group Dates MEDICARE MEDICARE PART xxxxxxxxxxx 2007-Pr [phone] [address] Medicare A & B esent [id number] JAMIR QUINONEZ [id number] [facility] [id number] 2018-Pre [address] Medicare HEALTHCARE HEALTHCARE sent [id number] Supplement [place] SUPPLEMENT JAMIR ABDULLAHI [id number] documented as of this encounter
--- OUTSIDE RECORDS SUMMARY | 2019-03-11 06:45 | XMS REPORT | Summary of Care ---
:1940 Author Organization [facility] Address [address] [place] [address] Care Team Providers Name Role Phone Chay Christensen Primary Care Provider Reason for Visit Reason Comments Transition Of Care Encounter Details Date Type Department Care Team Description 11/24/2018 Transition of Care [facility] Suzie Howard, lepidopterist [facility] [address] [place] [address] Allergies Active Allergy Reactions Severity Noted Date Comments Zolpidem Hallucinations 11/22/2018 documented as of this encounter (statuses as of 11/24/2018) Medications Medication Sig Dispensed Refills Start Date [...] as of this encounter (statuses as of 11/24/2018) Active Problems Problem Noted Date Confusion 11/22/2018 documented as of this encounter (statuses as of 11/24/2018) Immunizations Name Administration Dates Next Due Influenza [...] filedocumented in this encounter Plan of Treatment Date Type Specialty Care Team Description 12/07/2018 Office Visit Neurology Mauricio Coughlin MD [address] [place] [phone] Health Maintenance Due Date Last Done Comments DTaP,Tdap,and Td Vaccines (1 - Tdap) 1959 Zoster Recombinant Vaccine (SHINGRIX) (1 of 2) 02/03/1992 Medicare Wellness Visit 2007 INFLUENZA VACCINE 12/19/2018 04/20/2018 PNEUMOCOCCAL VACCINES 65+ (2 of 2 - PPSV23) 05/21/2019 05/21/2018 documented as of this encounter Implants Implanted Type Area Radio/Tv Technician Device Identifier Shelf Expiration Model / Date Serial / Lot Plate PLATE Back Shoulder SHOULDER Stent STENT Heart documented as of this encounter Results Not on filedocumented in this encounter Insurance Payer Benefit Plan / Subscriber ID Effective Phone Address Type Group Dates MEDICARE MEDICARE PART xxxxxxxxxxx 2007-Pr [phone] [address] Medicare A & B esent [id number] JAMIR QUINONEZ [id number] [facility] [id number] 2018-Pre [address] Medicare HEALTHCARE HEALTHCARE sent [id number] Supplement [place] SUPPLEMENT JAMIR ABDULLAHI [id number] documented as of this encounter
--- OUTSIDE RECORDS SUMMARY | 2019-03-11 06:45 | XMS REPORT | Summary of Care ---
:1940 Author Organization [facility] Address [address] [place] [address] Care Team Providers Name Role Phone Chay Christensen Primary Care Provider Reason for Visit Reason Comments Follow-up (Routine) Status Reason Specialty Diagnoses / Referred By Referred To Procedures Contact Contact New Request PN-NEUROLOGY / Diagnoses Acute hypoactive medication-induced delirium Parkinsonism, unspecified Parkinsonism type Emeli Winkler, Neurology Procedures Discharge Follow-Up: Specialty Service PN-NEUROLOGY ; 4-[address] [place] [address] [id number] [place] [address] Encounter Details Date Type Department Care Team Description 12/07/2018 Office Visit [facility] Mauricio Coughlin Toxic encephalopathy ( Primary Dx); Neurology-Mil Recinos MD Vascular parkinsonism; [address] [place] [address] Mild cognitive impairment with memory loss Drive, [address] [facility] [phone] Allergies Active Allergy Reactions Severity Noted Date Comments Zolpidem Hallucinations 11/22/2018 documented as of this encounter (statuses as of 12/13/2018) Medications Medication Sig Dispensed Refills Start Date [...] as of this encounter (statuses as of 12/13/2018) Active Problems Problem Noted Date Confusion 11/22/2018 documented as of this encounter (statuses as of 12/13/2018) Immunizations Name Administration Dates Next Due Influenza [...] Sign Reading Time Taken Comments Blood Pressure 125/66 12/07/2018 10:04 AM CDT Pulse 68 12/07/2018 10:04 AM CDT Temperature 36.6 C (97.8 F) 12/07/2018 10:04 AM CDT Respiratory Rate 17 12/07/2018 10:04 AM CDT Oxygen Saturation - - Inhaled Oxygen Concentration - - Weight 93 kg (205 lb) 12/07/2018 10:04 AM CDT Height 168.9 cm (5' 6.5") 12/07/2018 10:04 AM CDT Body Mass Index 32.59 12/07/2018 10:04 AM CDT documented in this encounter Progress Notes Mauricio Coughlin MD - 12/07/2018 9:40 AM CDT HISTORY OF PRESENT ILLNESS: Stewart Chavez is a 78 year old male. Chief complaint: Recent hospital admission, question of medication reaction. History: I had spoken with the neurology attending physician when the patient had been admitted to the hospital, and there were indeed Parkinsonian symptoms that have been noted but after workup there were no other positive tests, and there was a question as to whether the patient had a reaction to the use of baclofen. The patient is not having any new problems at the present time and he has come to the clinic in follow-up. Past Medical History: hypertension , hyperlipidemia, coronary artery disease. Allergies: No allergies listed. Family History: Paternal grandfather had a heart attack. Mother with the brain tumor, father had respiratory distress syndrome. A brother suffered with colon cancer. Surgeries: Surgery for kidney stones. The patient also has had shoulder surgery. 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 He does not smoke. Current Outpatient Medications: clopidogrel 75 mg tablet, Take 1 tablet by mouth daily for 180 days., Disp : 90 tablet, Rfl: 1 thiamine 100 mg tablet, Take 2 tablets by mouth daily for 30 days., Disp: 60 tablet, Rfl: 0 cabergoline 0.5 mg tablet, TAKE 1 TABLET BY MOUTH TWO TIMES A WEEK, Disp: , Rfl: 3 COQ10, UBIQUINOL, ORAL, Take 1 TAB-CAP/M2 by mouth daily., Disp: , Rfl: docosahexanoic acid/epa (FISH OIL ORAL), Take by mouth., Disp: , Rfl: pantoprazole 40 mg EC tablet, Take 40 mg by mouth., Disp: , Rfl: rosuvastatin 40 mg tablet, Take 40 mg by mouth., Disp: , Rfl: valsartan-hydrochlorothiazide 160-12.5 mg per tablet, Take 1 tablet by mouth., Disp: , Rfl: Social History Socioeconomic History Marital status: Spouse name: Not on file Number of [...] file Gets together: Not on file Attends temple service: Not on file Active member of [...] file Social History Narrative Not on file Vital signs: BP 125/66 | Pulse 68 | Temp 36.6 C (97.8 F) (Oral) | Resp 17 | Ht 5' 6.5 " (1.689 m) | Wt 205 lb (93 kg) | BMI 32.59 kg/m General findings: no facial asymmetry. Alert and cooperative during the exam. Mild dec eye movements(upgaze) He does have some resting tremor noted of both upper extremities but not the legs more prominent at rest. The patient does have some difficulty with external rotation of the arms at the shoulder. No new arm or leg weakness, and mild bradykinesia, as well as gait shuffling( mild). ASSESSMENT AND RECOMMENDATIONS: ICD-10-CM ICD-9-CM 1. 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 Mild cognitive impairment with memory loss G31.84 331.83 780.93 Impression: There are no other acute cognitive changes present, and we had talked about whether the patient might have had some mild cognitive impairment. Additionally, he does have some Parkinsonian features and we did spend time discussing the Parkinsonian features but right now the symptoms are relatively mild and he didn't really want any symptomatic treatment. I told him he could come back for afollow-up in the future as needed. Creation of the note was aided by utilizing a cut/paste operation of text from a Microsoft Word template created with [employer]. The text was dictated into the template via Dragon Naturally Speaking. documented in this encounter Plan of Treatment Health Maintenance Due Date Last Done Comments DTaP,Tdap,and Td Vaccines (1 - Tdap) 1959 Zoster Recombinant Vaccine (SHINGRIX) (1 of 2) 02/03/1992 Medicare Wellness Visit 2007 INFLUENZA VACCINE (#1) 2018 04/20/2018 PNEUMOCOCCAL VACCINES 65+ (2 of 2 - PPSV23) 05/21/2019 05/21/2018 documented as of this encounter Implants Implanted Type Area Pillowcase Folder Device Identifier Shelf Expiration Model / Date Serial / Lot Plate PLATE Back Shoulder SHOULDER Stent STENT Heart documented as of this encounter Results Not on filedocumented in this encounter Visit Diagnoses Diagnosis Toxic encephalopathy - Primary Vascular parkinsonism Paralysis agitans Mild cognitive impairment with memory loss Mild cognitive impairment, so stated documented in this encounter Insurance Payer Benefit Plan / Subscriber ID Effective Phone Address Type Group Dates MEDICARE MEDICARE PART xxxxxxxxxxx 2007-Pr [phone] [address] Medicare A & B esent [id number] JAMIR QUINONEZ [id number] [facility] [id number] 2018-Pre [address] Medicare HEALTHCARE HEALTHCARE sent [id number] Supplement [place] SUPPLEMENT JAMIR ABDULLAHI [id number] documented as of this encounter
--- OUTSIDE RECORDS SUMMARY | 2019-03-11 06:45 | XMS REPORT | Summary of Care ---
:1940 Author Organization [facility] Address [address] [place] [address] Care Team Providers Name Role Phone Chay Christensen Primary Care Provider Reason for Visit Reason Comments Follow-up (Routine) Status Reason Specialty Diagnoses / Referred By Referred To Procedures Contact Contact New Request PN-NEUROLOGY / Diagnoses Acute hypoactive medication-induced delirium Parkinsonism, unspecified Parkinsonism type Emeli Winkler, Neurology Procedures Discharge Follow-Up: Specialty Service PN-NEUROLOGY ; 4-[address] [place] [address] [id number] [place] [address] Encounter Details Date Type Department Care Team Description 12/07/2018 Office Visit [facility] Mauricio Coughlin Toxic encephalopathy ( Primary Dx); Neurology-Mil Recinos MD Vascular parkinsonism; [address] [place] [address] Mild cognitive impairment with memory loss [address], [address] [facility] [place] [address] [phone] Allergies Active Allergy Reactions Severity Noted Date [...] file Gets together: Not on file Attends orthodoxy service: Not on file Active member of [...] from a Microsoft Word template created with [employer]. The text was dictated into the template [...] of this encounter Implants Implanted Type Area Food Service Specialist Device Identifier Shelf Expiration Model / [...] BOX Medicare A & B esent [id number] JAMIR QUINONEZ [id number] [facility] [id number] 2018-Pre [address] B[address] Medicare HEALTHCARE HEALTHCARE sent [id number] Supplement [place] SUPPLEMENT JAMIR ABDULLAHI [id number] documented as of this encounter
[2019-03-11] MEDS ORDERED: Ringers Lactate 1,000 ML IV ONE (06:46)
[2019-03-11] MEDS ORDERED: FENTANYL CITR 100 MCG/2 ML ONE (07:07)
[2019-03-11] MEDS ORDERED: LIDOCAINE 2% MPF 5 ML VIAL ONE (07:07)
[2019-03-11] MEDS ORDERED: PROPOFOL 200 MG/20 ML VIAL IV ONE ×3 (07:07→08:07)
[2019-03-11] MEDS ORDERED: ONDANSETRON 4 MG/2 ML VIAL ONE (07:09)
[2019-03-11] MEDS: CEFAZOLIN/SWI 1gm 1 GM/10 ML SYR ONE ×2 (07:21→07:50)
--- NOTE | 2019-03-11 08:16 | P.BOP ---
Preoperative diagnosis: right CTS Postoperative diagnosis: same Primary procedure: right open CTR Estimated blood loss: <3 Anesthesia: General Complications: None Transferred to: Recovery Room Condition: Good
[2019-03-11] MEDS: HYDROMORPHONE HCL 1 MG/ML INJ ONE ×2 (08:41→08:46)
[2019-03-11] MEDS ORDERED: BUPIVACAINE 0.5% PF 10 ML VIAL ONE (08:52)
[2019-03-11 09:20] VITALS: BP 124/60; TEMP 97.5; O2SAT 97
[2019-03-11] MEDS ORDERED: TRAMADOL 37.5mg/APAP 325mg PER TAB ONE (09:43)
--- NOTE | 2019-03-11 19:59 | OP ---
Date of Procedure: 03/11/2019 Surgeon: Jacoby Lyles MD Preoperative Diagnosis: Right carpal tunnel syndrome. Postoperative Diagnosis: Right carpal tunnel syndrome. Procedures: Right open carpal tunnel release. Estimated Blood Loss: Less than 3 cc. Complications: There were no complications. Specimen: No pathology specimens sent. Indications For Operation: Stewart Chavez is a 79-year-old male, who complains of pain and problems i n both of his hands. These are consistent with carpal tunnel syndrome. He has been tested. Finding of severe carpal tunnel syndrome on both hands. He has previously had a left carpal tunnel release done by me several years ago with excellent results. He attempted to have the right one done, but un fortunately had medical issues. However, these have since resolved and at this time elects for open carpal tunnel release on the right. Risks, benefits, and alternatives were again discussed. He stat es he understands things as presented and wished to proceed. Description Of Procedure: The patient was taken to the operating room and placed in the supine posit ion. General anesthesia was obtained by staff. Following this, a well-padded tourniquet was placed on superior right arm. Right upper extremity was then prepped and draped in usual fashion for the [facility]. Following this, the right upper extremity was then elevated, but not exsanguinated. Tourni quet was raised. A standard incision was made parallel to the thenar crease with slight ulnar deviat ion at the wrist crease. This was taken down carefully through the skin, only meticulous hemostasis being maintained using bipolar electrocautery. The palmar fascia was then divided longitudinally and any obstructions over the transverse carpal ligament were then split on either side. A small marco w as made in the transverse carpal ligament and the underlying nerve and carpal tunnel structures were visualized. This was expanded from a proximal to distal direction until there were no constricting b ands. This was then expanded from a distal to proximal direction until no constricting band includin g volar forearm fascia. Following this, the structures were observed and found to be in continuity. The tourniquet was dropped and bleeding was controlled using bipolar cautery. The skin was then chrissy sed using interrupted nylon sutures. The patient was placed in a well-padded sterile dressing, awake mary grace and taken to recovery room in good condition. There were no complications. SE/MODL Voice ID: [id number] Report ID: [id number]
== END 2019-03-11 10:10 | disposition home or self-care (01) ==
LOC: OR 06:41
PROVIDERS: ATTEND Orthopaedic Surgery
PROC: 01N50ZZ Release Median Nerve, Open Approach (ICD-10-PCS; principal; 2019-03-11 07:30)
DX: G56.01 Carpal tunnel syndrome, right upper limb (principal); I10 Essential (primary) hypertension; G47.30 Sleep apnea, unspecified; E78.00 Pure hypercholesterolemia, unspecified; I25.10 Atherosclerotic heart disease of native coronary artery without angina pectoris; Z95.5 Presence of coronary angioplasty implant and graft
CPT/HCPCS: 85025; 80048; 36415; 64721; J2704 ×3; J3010; J1170; J0690; J7120; J2405

== ENCOUNTER 2020-04-16 16:32 | Inpatient (IN) | payer OTHER, MEDICARE ==
--- OUTSIDE RECORDS SUMMARY | 2020-04-16 16:34 | XMS REPORT | Clinical Summary ---
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 03/30/2018 Overview: Added automatically from request for elina alvin [id number] Spinal stenosis of lumbar region 03/30/2018 Overview: Added automatically from request for elina alvin [id number] Right lumbar radiculopathy 03/30/2018 Overview: Added automatically from request for elina alvin [id number] Encounters Date Type Specialty Care Team Description 04/27/2019 Hospital Encounter Radiology Jeffrey Ritchie MD 04/21/2019 Office Visit Neurosurgery Jeffrey Ritchie Lumbar radiculo jaswinder (Primary Dx); MD Huber Right leg pain after 04/16/2019 Surgical History Surgery Date Site/Laterality Comments STENT ABDOMINAL SURGERY HERNIA REPAIR SHOULDER ARTHROSCOPY W/ ROTATOR CUFF Bilateral Bilateral Shoulder Repair REPAIR CARDIAC CATHETERIZATION Medical History Medical History Date Comments Heart disease Hypertension Wears glasses Skin cancer Osteoarthritis GERD (gastroesophageal reflux disease) Hypercholesteremia History of transfusion Peptic ulceration CAD (coronary artery disease) Paroxysmal A-fib (HCC) Sleep apnea, obstructive Meniere disease Arteriovenous malformation cogenital Small bowel obstruction (HCC) Anemia Family History Medical History Relation Name Comments Cancer Brother No Known Problems Brother Cancer Father Heart disease Mother Relation Name Status Comments Brother Brother Father Mother Sister Alive Social History Tobacco Use Types Packs/Day Years Used Date Never Smoker Smokeless Tobacco: Never Used Alcohol Use Drinks/Week oz/Week Comments Yes 35 Shots of liquor 35.0 Sex Assigned at Date Recorded Not on file Last Filed Vital Signs Vital Sign Reading Time Taken Comments Blood Pressure 135/80 04/21/2019 10:48 AM MINUTE CLERK Pulse 88 04/21/2019 10:48 AM MINUTE CLERK Temperature - - Respiratory Rate - - Oxygen Saturation - - Inhaled Oxygen Concentration - - Weight - - Height - - Body Mass Index - - Plan of Treatment Health Maintenance Due Date Last Done Comments COVID-19 VACCINE (#1) 1956 SHINGLES VACCINES (#1) 02/03/1992 65+ PNEUMOCOCCAL VACCINE (2 of 2 - PPSV23) 02/02/200705/21 INFLUENZA VACCINE 11/19/2019 04/20/2018 Implants Implanted Type Area Stevedoring Superintendent Device Shelf Model / Identifier Expiration Serial / Lot Date 8mm Coflex Implant - [id number] IMPLANT N/A: PARADIGM SPINE 09/17/2020 [id number] / Implanted: Qty: 1 on 04/14/2018 by Jeffrey Ritchie MD at [facility] DEVICES N/A / [id number] Results Not on fileafter 04/16/2019 Insurance Payer Benefit Plan / Subscriber ID Effective Dates Phone Addre ss Type Group MEDICARE MEDICARE PART A [id number] 2007-[place] Medicare AND B t AARP AARP SUPPLEMENT [id number] 2016-Present Commercial Advance Directives For more information, please contact: [phone] Type Date Recorded 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
--- OUTSIDE RECORDS SUMMARY | 2020-04-16 16:34 | XMS REPORT | Continuity of Care Document ---
:1940 Author Organization [facility] t Address [address] [place] [address] Care Team Providers Name Role Phone Rm MCGRATH, F Primary Care Physician Jorje Coughlin MD Attending Clinician Huber Ritchie MD Attending Clinician Payers Payer Name Policy Type Policy Effective Date Expiration Date Sour ce Number MEDICAREMEDICARE PART [id number] 2007 Albaro Pichardo AND 00:00:00 [place] [id number] [place] [place] [place] [id number] 2016 Leroy [id number] 00:00:00 Met jas 2016-[facility] rcial Problems Condition Condition Condition Status Onset Resolution Last Treating Co mments Source Name Details Category Date Date Treatment Clinician Date 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 2-11 Added Method i of lumbar of lumbar 00:00: automatic s t region region 00 ally from request for surgery [id number] Right Right Disease Active 2017-04 Overview: [place] n lumbar lumbar 2-11 Added Methodi radiculopa radiculopa 00:00: automatic st thy thy 00 ally from request for surgery [id number] Allergies, Adverse Reactions, Alerts Allergy Allergy Status Severity Reaction(s) Onset Inactive Treating Comm ents Source Name Type Date Date Clinician No Known DA Active U 2014-04 [facility] All[facility]ie 2-09 [place] 00:[place]: [address] Family History Family Member Diagnosis Comments Start Date Stop Date Source Natural brother Cancer Lucio Schmidt ethodist Natural brother No Known Problems Ho uscedric [facility]ish Natural father Cancer Lucio Traore thodist Natural mother Heart disease Lucio Thorpe Social History Social Habit Start Date Stop Date Quantity Comments Source Sex Assigned At [facility] ethodi Tobacco use and 2019-04-22 2019-04-22 Never used Lucio Schmidt ethodist exposure 00:00:00 00:00:00 Alcohol intake 2019-04-22 2019-04-22 Current drinker [place] 00:00:00 00:00:00 of alcohol (finding) Smoking Status Start Date Stop Date Source Never smoker [place] Medications Ordered Filled Start Stop Current Ordering Indication Dosage Frequency Signature Comments Components Source Medication Medication Date Date Medication? Clinician (SIG) Name Name rosuvastati 2017-04 Yes 40mg Take 40 mg [place] (CRESTOR) 2-26 by mouth. Met hodi 40 MG 15:47: st tablet 09 valsartan-h 2017-04 Yes 1{tbl} Take 1 Ho uscedric ydrochlorot 2-26 tablet by Met hodi hiazide 15:47: mouth. st (DIOVAN-HCT 09 ) 160-12.5 mg per tablet pantoprazol 2017-04 Yes 40mg Take 40 mg [place] e 2-26 by mouth. Methodi (PROTONIX) 15:47: st 40 MG EC 09 tablet clopidogrel 2017-04 Yes 300mg Take 300 [place] (PLAVIX) 2-26 mg by Methodi 300 mg 15:47: mouth st tablet 09 once. celecoxib 2017-04 Yes 200mg Q.5D Take 200 Cele ston (CeleBREX) 2-26 mg by Methodi 200 MG 15:47: mouth 2 st capsule 09 (two) times a day. docosahexan 2017-04 Yes Take by Cele ston oic 2-26 mouth. Methodi acid/epa 15:47: st (FISH OIL 09 ORAL) Vital Signs Vital Name Observation Time Observation Value Comments Source Systolic blood 2019-04-21 10:48:00 135 mm[Hg] [place] pressure Diastolic blood 2019-04-21 10:48:00 80 mm[Hg] [place] pressure Heart rate 2019-04-21 10:48:00 88 /min Lucio Amish Procedures This patient has no known procedures. Plan of Care Planned Activity Planned Date Details Comments Source Future Scheduled 2019-11-19 INFLUENZA VACCINE [place] [facility] Test 00:00:00 [code = INFLUENZA VACCINE] Future Scheduled 2007 65+ PNEUMOCOCCAL [place] [facility] Test 00:00:00 VACCINE (2 of 2 - PPSV23) [code = 65+ PNEUMOCOCCAL VACCINE (2 of 2 - PPSV23)] Future Scheduled 1992-02-03 SHINGLES VACCINES (#1) [place] [facility] Test 00:00:00 [code = SHINGLES VACCINES (#1)] Future Scheduled 1958 COVID-19 VACCINE (#1) [place] [facility] Test 00:00:00 [code = COVID-19 VACCINE (#1)] Encounters Start End Encounter Admission Attending Care Care Encounter Source Date/Time Date/Time Type Type Clinicians Facility Department ID 2019-10-04 2019-10-04 Office JACOBO Coughlin [id number] 14:04:15 14:24:15 Visit Mauricio Jaeger [id number] Anam [id number] Professio [id number] nal 092 Building Results Test Description Test Time Test Comments Results Result Comments Source BASIC METABOLIC PANEL 2019-05-10 12:11:00 Test Item Value Reference Range Interpretation Comme nts SODIUM (test code = NA) 140 MMOL/L 137-145 N POTASSIUM (test code = K) 4.4 MMOL/L 3.5-5.1 N CHLORIDE (test code = CL) 107 MMOL/L 98-107 N CARBON DIOXIDE (test code = CO2) 24 MMOL/L 22-30 N GLUCOSE (test code = GLU) 94 MG/DL 74-106 N BLOOD UREA NITROGEN (test code = 25 MG/DL 9-20 H BUN) GLOMERULAR FILTRATION RATE (test 35 Reporting units: ml/min/1.73 code = GFR) m2 (Modified M DRD Formula)Referen ce Range: > or = 60 ml/min/1.7 3 m2 CREATININE (test code = CREAT) 1.90 MG/DL 0.66-1.25 H CALCIUM (test code = CA) 9.7 MG/DL 8.4-10.2 N [id number] 12:11:00 Test Item Value Reference Range Interpretation Comments MAGNESIUM (test code = MAG) 1.6 MG/DL 1.6-2.3 N BASIC METABOLIC [id number] 12:10:00 Test Item Value Reference Range Interpretation Comments SODIUM (test code = 140 MMOL/L 137-145 N NA) POTASSIUM (test code = 4.4 MMOL/L 3.5-5.1 N K) CHLORIDE (test code = 107 MMOL/L 98-107 N CL) CARBON DIOXIDE (test 24 MMOL/L 22-30 N code = CO2) GLUCOSE (test code = MG/DL 74-106 GLU) BLOOD UREA NITROGEN 25 MG/DL 9-20 H (test code = BUN) GLOMERULAR FILTRATION 35 Report ing units: RATE (test code = GFR) ml/mi n/1.73 m2 (Modified MDRD Formula)Referen ce Range: > or = 6 0 ml/min/1.73 m2 CREATININE (test code 1.90 MG/DL 0.66-1.25 H = CREAT) CALCIUM (test code = MG/DL 8.7-9.7 CA) [id number] 12:10:00 Test Item Value Reference Range Interpretation Comments MAGNESIUM (test code = MAG) MG/DL 1.6-2.3 BASIC METABOLIC [id number] 12:07:00 Test Item Value Reference Range Interpretation Comments SODIUM (test code = NA) 140 MMOL/L 137-145 N POTASSIUM (test code = K) 4.4 MMOL/L 3.5-5.1 N CHLORIDE (test code = CL) 107 MMOL/L 98-107 N CARBON DIOXIDE (test code = CO2) MMOL/L 22-30 GLUCOSE (test code = GLU) MG/DL 74-106 BLOOD UREA NITROGEN (test code = MG/DL 9-20 BUN) GLOMERULAR FILTRATION RATE (test code = GFR) CREATININE (test code = CREAT) MG/DL 0.66-1.25 CALCIUM (test code = CA) MG/DL 8.7-9.7 [id number] 12:07:00 Test Item Value Reference Range Interpretation Comments MAGNESIUM (test code = MAG) MG/DL 1.6-2.3 PROTHROMBIN [id number] 12:05:00 Test Item Value Reference Range Interpretation Comments PROTHROMBIN TIME 10.8 SECONDS 9.6-11.6 N PATIENT (test code = PTP) INTERNATIONAL NORMAL 1.0 0.8-1.1 N The INR is to be RATIO (test code = used only for INR) monitoring oral anticoagulantth erap y. INDICATION I NR VALUE ---- ---- ---- -------1. Prophylaxis, de ep venous thrombos is, including hig h risk surgery. 2.0 - 3.0 2. Prophylaxis, de ep venous thrombos is, hip surgery, treatment for d eep venous thrombosis or pulmonary prevention of systemic emboli sm in patients wit h valvular heart disease, atrial fibrillation, tissue heart va lve, or acute myocar dial infarction. 2.0 - 3 .0 3. Mechanical prosthesis hear t valves, recurrent syste ritchie embolism. 3.0 - 4.5 PTT [id number] 12:05:00 Test Item Value Reference Range Interpretation Comments PTT ACTIVATED (test code = APTT) 29.5 SECONDS 22.0-33.0 N CBC W/AUTO [id number] 11:45:00 Test Item Value Reference Range Interpretation Comments WHITE BLOOD CELL (test code = 9.9 K/MM3 3.8-9.8 H WBC) RED BLOOD CELL (test code = 5.46 M/MM3 3.95-5.67 N RBC) HEMOGLOBIN (test code = HGB) 16.3 G/DL 12.4-16.7 N HEMATOCRIT (test code = HCT) 50.8 % 35.9-49.5 H MEAN CELL VOLUME (test code = 93 fL 81.7-96.1 N MCV) MEAN CELL HGB (test code = MCH) 29.9 pg 27.6-33.2 N MEAN CELL HGB CONCETRATION 32.1 % 32.9-35.5 L (test code = MCHC) RED CELL DISTRIBUTION WIDTH 14.7 % 12.1-15.2 N (test code = RDW) PLATELET COUNT (test code = 145 K/MM3 129-368 N PLT) MEAN PLATELET VOLUME (test code 9.3 fl 7.4-10.4 N = MPV) NEUTROPHIL % (test code = NT%) 73.8 % 43-75 N IMMATURE GRANULOCYTE % (test 0.5 % 0.0-2.0 N code = IG%) LYMPHOCYTE % (test code = LY%) 15.8 % 14-44 N MONOCYTE % (test code = MO%) 8.6 % 4-13 N EOSINOPHIL % (test code = EO%) 1.1 % 0-6 N BASOPHIL % (test code = BA%) 0.2 % 0-2 N NUCLEATED RBC % (test code = 0.0 % 0-1.0 N NRBC%) NEUTROPHIL # (test code = NT#) 7.31 K/mm3 2.0-7.6 N IMMATURE GRANULOCYTE # (test 0.05 x10 3/uL 0-0.03 H code = IG#) LYMPHOCYTE # (test code = LY#) 1.56 K/mm3 1.0-3.8 N MONOCYTE # (test code = MO#) 0.85 K/mm3 0.1-0.8 H EOSINOPHIL # (test code = EO#) 0.11 K/mm3 0.0-0.2 N BASOPHIL # (test code = BA#) 0.02 K/mm3 0.0-0.2 N NUCLEATED RBC # (test code = 0.00 K/mm3 0.0-0.1 N NRBC#)
[2020-04-16] MEDS ORDERED: NA CHLORIDE 0.9% 500 ML ONE (19:09)
[2020-04-16] MEDS ORDERED: MORPHINE 4 MG/ML SYR ONE (19:10)
[2020-04-16] MEDS ORDERED: ONDANSETRON 4 MG/2 ML VIAL ONE (19:11)
[2020-04-16 19:46] LABS: Basophils % 0.5 % (0-1.3); Hematocrit 35.2 % (39.6-49.0); Lymphocytes % 7.8 % (15.3-44.8); MPV 7.8 fL (7.6-11.3); RBC Red Blood Cell Count 3.93 M/uL (4.33-5.43)
--- NOTE | 2020-04-16 19:56 | RAD REPORT ---
EXAM DESCRIPTION: CT - Stone Protocol - 04/16/2020 7:41 pm CLINICAL HISTORY: FLANK PAIN, left-sided back pain COMPARISON: Abdomen Pelvis Wo Contrast dated 06/28/2018 TECHNIQUE: Axial 3 mm thick images were obtained without oral or IV contrast. The [id number] span s the entirety of the system including uppermost abdomen and lung bases. All CT scans are performed using dose optimization technique as appropriate and may include automated exposure control or mA/KV adjustment according to patient size. FINDINGS: Motion degradation limits the examination. Moderate severity hydronephrosis involves the left collecting system and the left kidney is edematous with stranding in the perinephric fat. No obstructing or nonobstructing calculi identified. No right -sided hydronephrosis or right renal edema seen. Low-density mass in the lateral mid left kidney is b elieved to be a cyst that matches the prior study. Margins and detail are limited due to the amount o f motion. No significant adrenal finding. No bladder calculus or acute bladder finding. Diverticulum seen on the lateral right margin. Prominent prostate gland projects into the bladder base. There are numerous phleboliths along the pelvic floor. Imaged portions of the liver, spleen and pancreas show no suspicious findings on non-contrast imaging . No gallbladder or biliary tree abnormality identified. No suspicious bowel findings. No mass or bulky lymphadenopathy. Fat extends into each inguinal canal. A periumbilical hernia is pre sent similar to 2019. No acute component. Bowel extends into the hernia. No free air, free fluid or i nflammatory stranding. Disc and bony degenerative changes are present. L5 pars interarticularis defects are present. IMPRESSION: Moderate severity left-sided hydronephrosis and hydroureter without obstructing or nonob structing calculi. Left kidney appears edematous and there is stranding in the perinephric fat. Patient may have recently passed a stone. Blood or inflammatory debris in the collecting system can a lso cause obstruction. Isodense masses and pyelonephritis are not excluded on stone protocol technique. Additional nonacute findings detailed in the body of the report.
[2020-04-16 19:59] LABS: Albumin 3.4 g/dL (3.4-5.0); Bilirubin Direct 0.3 mg/dL (0-0.2); Bilirubin Total 0.8 mg/dL (0.2-1.0); Potassium 4.3 mmol/L (3.5-5.1); Protein, Total 7.6 g/dL (6.4-8.2)
[2020-04-16 20:43] LABS: Urine Bacteria <20 /HPF (NONE SEEN); Urine Mucus 1+ /HPF (NONE SEEN)
--- NOTE | 2020-04-16 21:06 | EDPHYS ---
Physician Documentation [facility] Name: Stewart Chavez Age: 80 yrs Sex: Male : 1940 Arrival Date: 04/16/2020 Time: 16:38 Bed 8 Private MD: ED Physician Tobias Terry HPI: 04/16 18:27 This 80 yrs old Male presents to ER via Ambulatory with complaints of pm1 Nausea/Vomiting. 18:27 The patient presents to the emergency department with nausea, vomiting, left flank pm1 pain. Onset: The symptoms/episode began/occurred last night. Possible causes: feels like prior kidney stone many years ago. The symptoms are aggravated by nothing. The symptoms are alleviated by nothing. Associated signs and symptoms: Pertinent negatives: abdominal pain, diarrhea, dysuria, fever. Severity of symptoms: in the emergency department the symptoms are worse. The patient has not recently seen a physician. Historical: - Allergies: 16:49 BACLOFEN; ll1 - Home Meds: 18:30 B12 sublingual [Active]; baclofen 20 mg Oral tab 1 tab 3 times per day [Active]; vg1 Crestor 40 mg Oral tab 1 tab once daily [Active]; Plavix 75 mg Oral tab 1 tab once daily [Active]; prolactin [Active]; valsartan-hydrochlorothiazide Oral [Active]; 23:28 metoprolol tartrate 50 mg Oral tab 1 tab 2 times per day [Active]; Eliquis 5 mg oral vg1 tab 1 tab 2 times per day [Active]; 23:36 gabapentin 300 mg oral cap [Active]; vg1 - PMHx: 16:49 Atrial Fib; Hypertension; High Cholesterol; bowel obstruction; ll1 - PSHx: 16:49 bilateral shoulder; chandra surgery; heart ablastion/cardioversion; ll1 - Immunization history:: Flu vaccine is up to date. - Social history:: Smoking status: Patient denies any tobacco usage or history of. ROS: 18:27 Constitutional: Negative for fever, chills, and weight loss, Cardiovascular: Negative pm1 for chest pain, palpitations, and edema, Respiratory: Negative for shortness of breath, cough, wheezing, and pleuritic chest pain. 18:27 MS/Extremity: Negative for injury and deformity, Skin: Negative for injury, rash, and discoloration, Neuro: Negative for headache, weakness, numbness, tingling, and seizure. 18:27 Abdomen/GI: Positive for nausea and vomiting, Negative for abdominal pain, diarrhea. 18:27 Back: Positive for flank pain, on the left. Exam: 18:27 Constitutional: This is a well developed, well nourished patient who is awake, alert, pm1 and in no acute distress. Head/Face: Normocephalic, atraumatic. 18:27 Skin: Warm, dry with normal turgor. Normal color with no rashes, no lesions, and no evidence of cellulitis. MS/ Extremity: Pulses equal, no cyanosis. Neurovascular intact. Full, normal range of motion. 18:27 Cardiovascular: Exam negative for acute changes, Rate: normal, Rhythm: regular, Pulses: no pulse deficits are appreciated, Edema: is not appreciated. 18:27 Respiratory: Exam negative for acute changes, respiratory distress, shortness of breath. 18:27 Abdomen/GI: Inspection: obese Palpation: abdomen is soft and non-tender, in all quadrants. 18:27 Back: CVA tenderness, that is mild, is noted on the left, vertebral tenderness, is not appreciated. 18:27 Neuro: Exam negative for acute changes, Orientation: is normal, Mentation: is normal, Motor: is normal, moves all fours. Vital Signs: 16:49 BP 148 / 64; Pulse 51; Resp 18; Temp 98.2; Pulse Ox 97% ; Weight 81.65 kg; Height 5 ft. ll1 6 in. (167.64 cm); Pain 8/10; 18:30 BP 153 / 91; Pulse 55; Resp 20; Pulse Ox 100% on R/A; vg1 19:00 BP 159 / 100; Pulse 71; Resp 18; Pulse Ox 100% on R/A; vg1 20:55 BP 158 / 65; Pulse 55; Resp 18; Pulse Ox 100% on R/A; vg1 21:53 BP 146 / 91; Pulse 66; Resp 20; Pulse Ox 98% on R/A; vg1 23:30 BP 127 / 92; Pulse 60; Resp 16; Pulse Ox 98% on R/A; vg1 16:49 Body Mass Index 29.05 (81.65 kg, 167.64 cm) ll1 NIH Stroke Scale Scores: 21:36 NIHSS Score: 3 pm1 22:23 NIHSS Score: 3 vg1 MDM: 18:18 Patient medically screened. pm1 20:05 ED course: Patient appears confused. He is aware to self but is not able to say where pm1 he is currently. denies history of altered mental status and Dementia/Alzheimer's. She attributes his altered mental status to severity of pain from kidney stone and exhaustion. Patient has been seen before by me 11/22/2018 for altered mental status and was transferred to another facility for further evaluation and treatment. 21:03 Data reviewed: vital signs. Data interpreted: Pulse oximetry: on room air is 100 %. pm1 Interpretation: normal. 21:03 Counseling: I had a detailed discussion with the patient and/or guardian regarding: the pm1 historical points, exam findings, and any diagnostic results supporting the discharge/admit diagnosis, lab results, radiology results, the need for further work-up and treatment in the hospital, Admit patient due to altered mental status. 21:03 Physician consultation: George KHANNA was contacted at 21:03, regarding admission, pm1 patient's condition, and will see patient. 21:51 ED course: Obtained current medications list from : Gabapentin for back pain and as pm1 sleep aid, digoxin 1.25 mg daily, Eliquis 2.5 mg BID, metoprolol 50 mg daily, Crestor 40 mg PO daily. 21:57 Physician consultation: Jose Salgado MD was called at 21:57, was contacted at 21:57, pm1 regarding consult, patient's condition, Not a TPA candidate. Recommends hydration and CT head angiogram. If negative CT head angiogram patient can be admitted here, but if positive he needs to be transferred to another facility for higher level of care and intervention . 04/16 18:27 Order name: Basic Metabolic Panel; Complete Time: 20:13 pm1 04/16 18:27 Order name: CBC with Diff; Complete Time: 20:13 pm1 04/16 18:27 Order name: Hepatic Function; Complete Time: 20:13 pm1 04/16 18:27 Order name: Lipase; Complete Time: 20:13 pm1 04/16 18:27 Order name: Urine Microscopic Only; Complete Time: 20:47 pm1 04/16 20:45 Order name: Urine Culture EDFL 04/16 21:08 Order name: Urine Dipstick--Ancillary (enter results); Complete Time: 21:17 sp 04/17 03:59 Order name: COVID-19 sg 04/17 04:25 Order name: CORONAVIRUS EDFL 04/17 04:59 Order name: CBC with Automated Diff EDMS 04/17 05:18 Order name: Basic Metabolic Panel EDMS 04/17 05:18 Order name: Lipid Profile EDFL 04/17 05:18 Order name: T4 Free EDFL 04/17 05:18 Order name: Magnesium EDMS 04/16 18:42 Order name: Stone Protocol; Complete Time: 20:13 EDMS 04/16 20:14 Order name: CT Head Brain wo Cont; Complete Time: 21:09 pm1 04/16 21:02 Order name: Chest Single View XRAY pm1 04/16 21:53 Order name: CT Head Angio pm1 04/17 05:18 Order name: Thyroid Stimulating Hormone EDFL 04/17 05:26 Order name: SARS-COV-2 RT PCR EDFL 04/17 09:31 Order name: [facility] 04/17 09:34 Order name: [facility] 04/17 12:14 Order name: MRI EDFL 04/16 18:27 Order name: IV Saline Lock; Complete Time: 19:29 pm1 04/16 18:27 Order name: Labs collected and sent; Complete Time: 19:29 pm1 04/16 18:27 Order name: Urine Dipstick-Ancillary (obtain specimen); Complete Time: 03:50 pm1 04/16 21:02 Order name: EKG; Complete Time: 21:03 pm1 04/16 21:02 Order name: EKG - Nurse/Tech; Complete Time: 21:17 pm1 04/16 23:18 Order name: Swallow Screen; Complete Time: 23:26 la1 04/16 23:19 Order name: Monitor; Complete Time: 02:08 la1 04/17 03:51 Order name: Urine Dipstick-Ancillary (obtain specimen); Complete Time: 08:18 sg Administered Medications: 19:31 Drug: Zofran (Ondansetron) 4 mg Route: IVP; Site: right antecubital; vg1 21:06 Follow up: Response: Nausea is decreased vg1 19:32 Drug: NS 0.9% 500 ml Route: IV; Rate: bolus; Site: right antecubital; vg1 20:30 Follow up: IV Status: Completed infusion; IV Intake: 500ml vg1 19:32 Drug: morphine 4 mg {Note: rass 2.} Route: IVP; Site: right antecubital; vg1 21:06 Follow up: Response: No adverse reaction; RASS: Alert and Calm (0) vg1 21:47 Drug: Rocephin 1 grams Route: IV; Rate: calculated rate; Site: right antecubital; vg1 22:45 Follow up: Response: No adverse reaction; IV Status: Completed infusion; IV Intake: [id number] 23:02 Drug: foLIC Acid 1 mg Route: IVPB; Site: right antecubital; vg1 23:23 Follow up: IV Status: Completed infusion vg1 23:02 Drug: Thiamine 100 mg Route: IV; Rate: calculated rate; Site: right antecubital; vg1 23:23 Follow up: IV Status: Completed infusion vg1 23:23 Drug: Mucomyst - Acetylcysteine 600 mg Route: PO; vg1 23:45 Drug: Eliquis 2.5 mg Route: PO; vg1 04/17 00:00 Follow up: Response: No adverse reaction sg Disposition: 17:17 Co-signature as Attending Physician, Tobias Terry MD. rn Disposition: 04/16/20 21:06 Hospitalization ordered by Mart Bocanegra for Observation. Preliminary diagnosis are Altered mental status, unspecified, Nausea and vomiting, Other and unspecified hydronephrosis - recently passed stone. - Bed requested for Telemetry/MedSurg (observation). - Status is Observation. ss - Condition is Stable. - Problem is new. - Symptoms have improved. NIH Stroke Scale - NIH Stroke Score Date: 04/16/2020 Time: 21:36 Total Score = 3 1a. Level of Consciousness (LOC) - 0(Alert) 1b. Level of Consciousness (LOC) (Year \T\ Age) - 2(Neither) 1c. LOC Commands (Open \T\ Closes Eyes/Respiratory Therapy Director) - 0(Both) 2. Best Gaze (Lateral Gaze Paresis) - 0(Normal) 3. Visual Field Loss - 0(No visual loss) 4. Facial Palsy - 0(Normal) 5a. Left Arm: Motor (10-second hold) - 0(No drift) 5b. Right Arm: Motor (10-second hold) - 0(No drift) 6a. Left Leg: Motor (5-second hold - always test supine) - 0(No drift) 6b. Right Leg: Motor (5-second hold - always test supine) - 0(No drift) 7. Limb Ataxia (finger/nose \T\ heel/ambrose - test with eyes open) - 0(Absent) 8. Sensory Loss (pinprick arms/legs/face) - 0(Normal) 9. Best Language: Aphasia (description/naming/reading) - 1(Mild to moderate aphasia) 10. Dysarthria (speech clarity - read or repeat words) - 0(Normal) 11. Extinction and Inattention (visual/tactile/auditory/spatial/personal) - 0(No abnormality) Initials: pm1 NIH Stroke Scale - NIH Stroke Score Date: 04/16/2020 Time: 22:23 Total Score = 3 1a. Level of Consciousness (LOC) - 0(Alert) 1b. Level of Consciousness (LOC) (Year \T\ Age) - 2(Neither) 1c. LOC Commands (Open \T\ Closes Eyes/Respiratory Therapy Director) - 0(Both) 2. Best Gaze (Lateral Gaze Paresis) - 0(Normal) 3. Visual Field Loss - 0(No visual loss) 4. Facial Palsy - 0(Normal) 5a. Left Arm: Motor (10-second hold) - 0(No drift) 5b. Right Arm: Motor (10-second hold) - 0(No drift) 6a. Left Leg: Motor (5-second hold - always test supine) - 0(No drift) 6b. Right Leg: Motor (5-second hold - always test supine) - 0(No drift) 7. Limb Ataxia (finger/nose \T\ heel/ambrose - test with eyes open) - 0(Absent) 8. Sensory Loss (pinprick arms/legs/face) - 0(Normal) 9. Best Language: Aphasia (description/naming/reading) - 1(Mild to moderate aphasia) 10. Dysarthria (speech clarity - read or repeat words) - 0(Normal) 11. Extinction and Inattention (visual/tactile/auditory/spatial/personal) - 0(No abnormality) Initials: vg1 Signatures: Dispatcher [employer] EDMS Mota, Jacoby, RN RN sg TommyStalin MD MD cha Nieto, Roman, MD MD rn Smirch, Shelby, RN RN ss Elizabetha, George, [employer] SUPERVISOR-C [employer] SUPERVISOR-Cla1 Laura Galdamez, RN RN [place], [employer] BENEFITS COORDINATOR pm1 Dejah Funes Victoria, RN RN vg1 Verona Baeza RN RN ll1 Corrections: (The following items were deleted from the chart) 04/16 18:56 18:51 Stone Protocol+CT.RAD.BRZ ordered. EDMS EDMS 21:09 21:06 Hospitalization Ordered by Mart Bocanegra for Observation. Preliminary pm1 diagnosis is Altered mental status, unspecified; Nausea and vomiting. Bed requested for Telemetry/MedSurg (observation). Status is Observation. Condition is Stable. Problem is new. Symptoms have improved. pm1 23:27 21:09 04/16/2020 21:06 Hospitalization Ordered by Mart Bocanegra for cg Observation. Preliminary diagnosis is Altered mental status, unspecified; Nausea and vomiting; Other and unspecified hydronephrosis - recently passed stone. Bed requested for Telemetry/MedSurg (observation). Status is Observation. Condition is Stable. Problem is new. Symptoms have improved. pm1 04/17 14:24 04/16 23:27 04/16/2020 21:06 Hospitalization Ordered by Mart Bocanegra for eb Observation. Preliminary diagnosis is Altered mental status, unspecified; Nausea and vomiting; Other and unspecified hydronephrosis - recently passed stone. Bed requested for [facility] ER HOLD. Status is Observation. Condition is Stable. Problem is new. Symptoms have improved. 04/17 14:45 14:24 04/16/2020 21:06 Hospitalization Ordered by Mart Bocanegra for ss Observation. Preliminary diagnosis is Altered mental status, unspecified; Nausea and vomiting; Other and unspecified hydronephrosis - recently passed stone. Bed requested for Telemetry/MedSurg (observation). Status is Observation. Condition is Stable. Problem is new. Symptoms have improved. eb
--- NOTE | 2020-04-16 21:06 | RAD REPORT ---
EXAM DESCRIPTION: CT - Head Brain Wo Cont - 04/16/2020 8:48 pm CLINICAL HISTORY: MENTAL STATUS CHANGE, confusion COMPARISON: Head Brain Wo Cont dated 11/22/2018 TECHNIQUE: Axial 5 mm thick images of the head were obtained without IV contrast. All CT scans are performed using dose optimization technique as appropriate and may include automated exposure control or mA/KV adjustment according to patient size. FINDINGS: No intracranial hemorrhage, mass, edema or shift of mid-line structures. No acute cortical based infarction. No cortical edema or sulcal effacement. Moderate severity atrophy is present with ventricles in proportion. 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 Intracranial findings are not substantially different from compari son. Arterial tree calcifications are present. Mastoid air cells and visualized portions of the paranasal sinuses are clear. No acute bony findings. IMPRESSION: No hemorrhage, mass or acute cortical based infarction. Prominent atrophy, prominent chronic ischemic change and old infarction changes are present not subst antially different from November 2018. Chronic ischemic changes can mask nonhemorrhagic acute infarction. MR brain followup can be obtained if there is ongoing concern for acute ischemia.
--- NOTE | 2020-04-16 21:06 | ER ---
Nurse's Notes [facility] Name: Stewart Chavez Age: 80 yrs Sex: Male : 1940 Arrival Date: 04/16/2020 Time: 16:38 Bed 8 Private MD: Diagnosis: Altered mental status, unspecified;Nausea and vomiting;Other and unspecified hydronephrosis-recently passed stone Presentation: 04/16 16:49 Chief complaint: Patient states: N/V since last night. Left lower back pain for 2-3 ll1 hours. No fever. Coronavirus screen: Client denies travel out of the [place] in the last 14 days. nausea, vomiting. Client presents with at least one sign or symptom that may indicate coronavirus-19. Standard/surgical mask placed on the client. Ebola Screen: Patient denies travel to an Ebola-affected area in the 21 days before illness onset. Initial Sepsis Screen: Does the patient meet any 2 criteria? No. Patient's initial sepsis screen is negative. Does the patient have a suspected source of infection? Yes: Dysuria/Frequency/Urgency/UTI. Risk Assessment: Do you want to hurt yourself or someone else? Patient reports no desire to harm self or others. Onset of symptoms was April 15, 2020. 16:49 Method Of Arrival: Ambulatory ll1 16:49 Acuity: DARIUSZ 3 ll1 Historical: - Allergies: 16:49 BACLOFEN; ll1 - Home Meds: 18:30 B12 sublingual [Active]; baclofen 20 mg Oral tab 1 tab 3 times per day [Active]; vg1 Crestor 40 mg Oral tab 1 tab once daily [Active]; Plavix 75 mg Oral tab 1 tab once daily [Active]; prolactin [Active]; valsartan-hydrochlorothiazide Oral [Active]; 23:28 metoprolol tartrate 50 mg Oral tab 1 tab 2 times per day [Active]; Eliquis 5 mg oral vg1 tab 1 tab 2 times per day [Active]; 23:36 gabapentin 300 mg oral cap [Active]; vg1 - PMHx: 16:49 Atrial Fib; Hypertension; High Cholesterol; bowel obstruction; ll1 - PSHx: 16:49 bilateral shoulder; chandra surgery; heart ablastion/cardioversion; ll1 - Immunization history:: Flu vaccine is up to date. - Social history:: Smoking status: Patient denies any tobacco usage or history of. Screenin:30 Abuse screen: Denies threats or abuse. Nutritional screening: No deficits noted. vg1 Tuberculosis screening: No symptoms or risk factors identified. Fall Risk No fall in past 12 months (0 pts). No secondary diagnosis (0 pts). IV access (20 points). Ambulatory Aid- None/Bed Rest/Nurse Assist (0 pts). Gait- Normal/Bed Rest/Wheelchair (0 pts) Mental Status- Oriented to own ability (0 pts). Total Ulrich Fall Scale indicates No Risk (0-24 pts). Assessment: 18:30 General: Appears in no apparent distress. uncomfortable, Behavior is calm, anxious. vg1 Pain: Complains of pain in left flank pain Pain currently is 10 out of 10 on a pain scale. Pain began this morning. 18:30 Neuro: Level of Consciousness is awake, alert, obeys commands, Oriented to person, vg1 place, time, situation. Cardiovascular: Capillary refill < 3 seconds. Respiratory: Airway is patent Respiratory effort is even, unlabored, Respiratory pattern is regular, symmetrical. GI: Abdomen is round. GI: Reports nausea, vomiting, since last night. : Reports burning with urination, urinary frequency, since this morning. EENT: No signs and/or symptoms were reported regarding the EENT system. Derm: Skin is intact, is healthy with good turgor. Musculoskeletal: Range of motion: intact in all extremities. 19:00 Reassessment: Patient appeared agitated and would not cooperate with IV start. When vg1 asked where he was he was unable to verify the place. Was able to stated name and month and date of but not year. Patients stated patient has no Hx of Alzheimer's or dementia. Notified provider. 20:11 Reassessment: Patient appears in no apparent distress at this time. Patient is alert, vg1 oriented x 3, equal unlabored respirations, skin warm/dry/pink. Asked patient to verify name and , was able to verify full name and month and date. Asked patient to verify where he is and was unable to. Asked patient to verify who the president is and patient was unable to verify as well. Notified provider. 21:20 Reassessment: Xray at bedside. vg1 23:02 Reassessment: Patient appears in no apparent distress at this time. Patient and/or vg1 family updated on plan of care and expected duration. Pain level reassessed. Asked patient to state full name and and patient was successful. Asked patient to stated [place] president and patient stated Trump. When asked where he was, patient was unable to. Provider notified. 23:26 Reassessment: Swallow screen completed and patient passed. 1 Vital Signs: 16:49 BP 148 / 64; Pulse 51; Resp 18; Temp 98.2; Pulse Ox 97% ; Weight 81.65 kg; Height 5 ft. ll1 6 in. (167.64 cm); Pain 8/10; 18:30 BP 153 / 91; Pulse 55; Resp 20; Pulse Ox 100% on R/A; vg1 19:00 BP 159 / 100; Pulse 71; Resp 18; Pulse Ox 100% on R/A; vg1 20:55 BP 158 / 65; Pulse 55; Resp 18; Pulse Ox 100% on R/A; vg1 21:53 BP 146 / 91; Pulse 66; Resp 20; Pulse Ox 98% on R/A; vg1 23:30 BP 127 / 92; Pulse 60; Resp 16; Pulse Ox 98% on R/A; vg1 16:49 Body Mass Index 29.05 (81.65 kg, 167.64 cm) ll1 NIH Stroke Scale Scores: 21:36 NIHSS Score: 3 pm1 22:23 NIHSS Score: 3 1 ED Course: 16:38 Patient arrived in ED. rg4 16:48 Arm band placed on. ll1 16:52 Triage completed. ll1 18:18 Villa Pitt NP is PHCP. pm1 18:18 Tobias Terry MD is Attending Physician. pm1 18:26 Angi Galdamez, RN is Primary Nurse. vg1 18:30 Patient has correct armband on for positive identification. Bed in low position. Call 1 light in reach. Side rails up X 1. Adult w/ patient. Pulse ox on. NIBP on. 19:20 Missed attempt(s): 20 gauge in right antecubital area. Bleeding controlled, band aid sv applied, catheter tip intact. 19:25 Inserted saline lock: 20 gauge in right antecubital area, using aseptic technique. sv Blood collected. Flushed right antecubital with 5 ml normal saline. 19:[address] stretcher. vg1 19:40 Stone Protocol In Process Unspecified. EDMS 19:50 Patient moved back from CT. vg1 20:[address] via stretcher. vg1 20:48 CT Head Brain wo Cont In Process Unspecified. EDMS 20:54 Patient moved back from CT. vg1 21:06 Mart Bocanegra is Hospitalizing Provider. pm1 21:25 Chest Single View XRAY In Process Unspecified. EDMS 22:[address] via stretcher. vg1 22:35 CT Head Angio In Process Unspecified. EDMS 04/17 06:27 Primary Nurse role handed off by Angi Galdamez RN eb 07:44 CORONAVIRUS Sent. sv 07:44 COVID-19 Sent. sv 07:44 Urine Culture Sent. sv Administered Medications: 04/16 19:31 Drug: Zofran (Ondansetron) 4 mg Route: IVP; Site: right antecubital; vg1 21:06 Follow up: Response: Nausea is decreased vg1 19:32 Drug: NS 0.9% 500 ml Route: IV; Rate: bolus; Site: right antecubital; vg1 20:30 Follow up: IV Status: Completed infusion; IV Intake: 500ml vg1 19:32 Drug: morphine 4 mg {Note: rass 2.} Route: IVP; Site: right antecubital; vg1 21:06 Follow up: Response: No adverse reaction; RASS: Alert and Calm (0) vg1 21:47 Drug: Rocephin 1 grams Route: IV; Rate: calculated rate; Site: right antecubital; vg1 22:45 Follow up: Response: No adverse reaction; IV Status: Completed infusion; IV Intake: [id number] 23:02 Drug: foLIC Acid 1 mg Route: IVPB; Site: right antecubital; vg1 23:23 Follow up: IV Status: Completed infusion vg1 23:02 Drug: Thiamine 100 mg Route: IV; Rate: calculated rate; Site: right antecubital; vg1 23:23 Follow up: IV Status: Completed infusion vg1 23:23 Drug: Mucomyst - Acetylcysteine 600 mg Route: PO; vg1 23:45 Drug: Eliquis 2.5 mg Route: PO; vg1 04/17 00:00 Follow up: Response: No adverse reaction sg Intake: 04/16 20:30 IV: 500ml; Total: 500ml. vg1 22:45 IV: 10ml; Total: 510ml. vg1 Outcome: 21:06 Decision to Hospitalize by Provider. pm1 23:27 Admitted to ER Hold. Please see [facility] for further documentation. sg 04/17 14:45 Patient left the ED. NIH Stroke Scale - NIH Stroke Score Date: 04/16/2020 Time: 21:36 Total Score = 3 1a. Level of Consciousness (LOC) - 0(Alert) 1b. Level of Consciousness (LOC) (Year \T\ Age) - 2(Neither) 1c. LOC Commands (Open \T\ Closes Eyes/Baffle Installer) - 0(Both) 2. Best Gaze (Lateral Gaze Paresis) - 0(Normal) 3. Visual Field Loss - 0(No visual loss) 4. Facial Palsy - 0(Normal) 5a. Left Arm: Motor (10-second hold) - 0(No drift) 5b. Right Arm: Motor (10-second hold) - 0(No drift) 6a. Left Leg: Motor (5-second hold - always test supine) - 0(No drift) 6b. Right Leg: Motor (5-second hold - always test supine) - 0(No drift) 7. Limb Ataxia (finger/nose \T\ heel/ambrose - test with eyes open) - 0(Absent) 8. Sensory Loss (pinprick arms/legs/face) - 0(Normal) 9. Best Language: Aphasia (description/naming/reading) - 1(Mild to moderate aphasia) 10. Dysarthria (speech clarity - read or repeat words) - 0(Normal) 11. Extinction and Inattention (visual/tactile/auditory/spatial/personal) - 0(No abnormality) Initials: pm1 NIH Stroke Scale - NIH Stroke Score Date: 04/16/2020 Time: 22:23 Total Score = 3 1a. Level of Consciousness (LOC) - 0(Alert) 1b. Level of Consciousness (LOC) (Year \T\ Age) - 2(Neither) 1c. LOC Commands (Open \T\ Closes Eyes/Baffle Installer) - 0(Both) 2. Best Gaze (Lateral Gaze Paresis) - 0(Normal) 3. Visual Field Loss - 0(No visual loss) 4. Facial Palsy - 0(Normal) 5a. Left Arm: Motor (10-second hold) - 0(No drift) 5b. Right Arm: Motor (10-second hold) - 0(No drift) 6a. Left Leg: Motor (5-second hold - always test supine) - 0(No drift) 6b. Right Leg: Motor (5-second hold - always test supine) - 0(No drift) 7. Limb Ataxia (finger/nose \T\ heel/ambrose - test with eyes open) - 0(Absent) 8. Sensory Loss (pinprick arms/legs/face) - 0(Normal) 9. Best Language: Aphasia (description/naming/reading) - 1(Mild to moderate aphasia) 10. Dysarthria (speech clarity - read or repeat words) - 0(Normal) 11. Extinction and Inattention (visual/tactile/auditory/spatial/personal) - 0(No abnormality) Initials: vg1 Signatures: Dispatcher [employer] Tamar Campbell RN Jacoby Rivera RN Maliha Chang RN RN ss Villa Pitt, [employer] pm1 Marla Galdamez rg4 Dejah Funes Victoria, RN RN vg1 Verona Baeza RN RN ll1
[2020-04-16 21:12] LABS: Urine Blood 2+ (NEG); Urine Glucose NEGATIVE (NEG); Urine Protein 2+ (NEG); Urine Specific Gravity 1.025 (1.005-1.030)
[2020-04-16] MEDS ORDERED: CEFTRIAXONE/SWI 1gm 1 GM/10 ML SYR ONE (21:58)
[2020-04-16] MEDS ORDERED: THIAMINE 200 MG/2 ML INJ ONE (23:04)
[2020-04-16] MEDS ORDERED: FOLIC ACID 5 MG/ML VIAL ONE (23:07)
[2020-04-16] MEDS ORDERED: ACETYLCYST 6,000 MG/30 ML VIAL ONE (23:26)
--- NOTE | 2020-04-16 23:39 | P.HP ---
Certification for Inpatient Patient admitted to: Inpatient With expected LOS: >2 Midnights Patient will require the following post-hospital care: None Practitioner: I am a practitioner with admitting privileges, knowledge of patient current condition, hospital course, and medical plan of care. Services: Services provided to patient in accordance with Admission requirements found in Title 42 Section 412.3 of the Code of Federal Regulations <George Horner - Last Filed: 04/16/20 23:31> Patient History Date of Service: 04/16/20 Primary Care Provider: Dr. Christensen, Dr. booth Reason for admission: AMS History of Present Illness: 72-year-old male with history of atrial fibrillation on chronic an ticoagulation therapy, hypertension, hyperlipidemia kidney stones presented to the emergency severe left flank plain, nausea and vomiting. While patient was in the waiting room around between 5 and 6:00 p.m. son at bedside reports that he began to have some difficulty with cognition and finding his words. Patient was evaluated by ED provider, labs significant for elevated white blood cell count 12.4 hemoglobin 11.7 hematocrit 35.2 creatinine 2.2, GFR 29 which is close to patient's baseline calcium elevated 10.2. CT abdomen pelvis shows moderate severity left-sided hydronephrosis and hydroureter without obstructing or nonobstructing calculi left kidney appears edematous with stranding in the perinephric fat patient may have recently passed a stone. Clinically recently passed calculus would fit. Plan was initially to discharge patient but his cognition continue to decline. Per family at bedside. Patient is usually alert, oriented times 3-4, now appears to be having some difficulty finding his words all the way he can get out is clear and appropriate. Patient oriented only x1. Ct head negative for acute findings, CT angio also negative for acute findings, Case discussed with neurology, patient not TPA canditate. will admit for further CVA workup. 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 - Social History Smoking Status: Never smoker Alcohol use: Yes CD- Drugs: No Caffeine use: Yes Place of Residence: Home <George Horner - Last Filed: 04/16/20 23:31> Date of Service: 04/17/20 <verenice fisher - Last Filed: 04/17/20 17:17> Allergies No Known Allergies Allergy (Verified 03/09/19 12:12) Home Medications: Pantoprazole [Protonix Tab*] 40 mg PO DAILY 10/23/11 Rosuvastatin Calcium [Crestor] 40 mg PO DAILY 10/23/11 Aspirin [Aspirin EC 325 MG] 325 mg PO DAILY 04/17/20 Cholecalciferol (Vitamin D3) [Vitamin D3] 10,000 unit PO DAILY 04/17/20 Digoxin [Lanoxin] 0.125 mg PO DAILY 04/17/20 Docosahexanoic AC/Epa [Fish Oil 1,000 MG*] 700 mg PO DAILY 04/17/20 Ferrous Sulfate [Iron] 350 mg PO DAILY 04/17/20 Metoprolol Tartrate 25 mg PO DAILY 6PM 04/17/20 Metoprolol Tartrate 50 mg PO DAILY 04/17/20 Ubidecarenone [Co Q-10] 100 mg PO DAILY 04/17/20 Valsartan/Hydrochlorothiazide [Valsartan-Hctz 80-12.5 mg Tab] 1 each PO DAILY 04/17/20 Review of Systems is unable to be obtained <George Horner - Last Filed: 04/16/20 23:31> Physical Examination - Physical Exam General: Alert, In no apparent distress, Oriented x1 HEENT: Atraumatic, Normocephalic Neck: Supple Respiratory: Clear to auscultation bilaterally, Normal air movement Cardiovascular: No edema, Irregular heart rate/rhythm (afib, rate controlled), Systolic murmur Capillary refill: <2 Seconds Gastrointestinal: Normal bowel sounds, No tenderness, No masses, No rebound Musculoskeletal: No contractures, No erythema, No tenderness Integumentary: No significant lesion, No tenderness/swelling, No erythema Neurological: Normal strength at 5/5 x4 extr, Normal tone, Sensation intact, Other (Apparent expressive aphasia, speech clear when able to produce. ) - Studies Laboratory Data (last 24 hrs) 04/16/20 19:25: WBC 12.4 H, Hgb 11.7 L, Hct 35.2 L, Plt Count 235 04/16/20 19:25: Sodium 144, Potassium 4.3, BUN 19 H, Creatinine 2.20 H, Glucose 133 H, Total Bilirubin 0.8, AST 30, ALT 35, Alkaline Phosphatase 95, Lipase 144 <George Horner - Last Filed: 04/16/20 23:31> - Studies Laboratory Data (last 24 hrs) 04/16/20 19:25: WBC 12.4 H, Hgb 11.7 L, Hct 35.2 L, Plt Count 235 04/16/20 19:25: Sodium 144, Potassium 4.3, BUN 19 H, Creatinine 2.20 H, Glucose 133 H, Total Bilirubin 0.8, AST 30, ALT 35, Alkaline Phosphatase 95, Lipase 144 <verenice fisher - Last Filed: 04/17/20 17:17> Assessment and Plan - Plan Assessment Altered mental status, dysphasia rule out CVA CKD 4 Left-sided hydronephrosis/hydroureter suspect recently passed renal calculus Atrial fibrillation on chronic anticoagulation with Eliquis Hypertension Hyperlipidemia Plan Altered mental status, dysphasia rule out CVA: Neurology consulted in case discussed, continue with patient's home medication Eliquis 2.5 mg p.o. b.i.d., folic acid. Order MRI, echo, carotid ultrasound for tomorrow. Speech and physical therapy consults. Patient noted to have systolic murmur on auscultation on sure if this is new. CKD 4: Renal function close to baseline but patient did after receiving IV contrast to make sure that he was not a candidate for intra-arterial intervention for CVA. Will need to monitor renal function closely, nephrology consult in place. Continue with gentle hydration overnight. Left-sided hydronephrosis/hydroureter suspect recently passed renal calculus: Continue gentle hydration overnight, patient able to urinate at this time without difficulty. Will obtain renal ultrasound tomorrow to check for resolution. Atrial fibrillation on chronic anticoagulation with Eliquis: Continue home medications, adjust as necessary. Echocardiogram. Hypertension: Obtain and continue home medications, adjust as necessary Hyperlipidemia: Obtain and continue home medications, adjust as necessary Discharge Plan: Home Plan to discharge in: 48 Hours - Advance Directives Does patient have a Living Will: No Does patient have a Durable POA for Healthcare: Yes - Code Status/Comfort Care Code Status Assessed: Yes Critical Care: No Time Spent Managing Pts Care (In Minutes): 55 <George Horner - Last Filed: 04/16/20 23:31> Physician Review: Patient Assessed, Agree with Above Assessment and Plan Physician Review Additional Text: Altered mental status Suspect metabolic encephalopathy from UTI. Hydronephrosis and hydroureter. Patient also with slurred speech. Plan: CVA workup with MRI and echo. Start IV Rocephin for UTI and follow cultures. No problem was swallowing. Continue home medication. <verenice fisher - Last Filed: 04/17/20 17:17>
[2020-04-17] MEDS ORDERED: ACETAMINOPHEN 500 MG TAB PO PRN (01:24)
[2020-04-17] MEDS: NA CHLORIDE 0.9% 1,000 ML IV SCH ×3 (01:24→23:40)
[2020-04-17] MEDS ORDERED: ONDANSETRON 4 MG/2 ML VIAL IV PRN (01:24)
[2020-04-17 02:27] VITALS: BMI 29.0
[2020-04-17 04:58] LABS: Absolute Lymphocytes (CBC) 1.4 K/uL (0.7-4.9); Basophils % 0.6 % (0-1.3); Hematocrit 31.3 % (39.6-49.0); Lymphocytes % 13.3 % (15.3-44.8); RBC Red Blood Cell Count 3.55 M/uL (4.33-5.43)
[2020-04-17 05:17] LABS: Magnesium 1.7 mg/dL (1.8-2.4); Potassium 4.3 mmol/L (3.5-5.1); Thyroid Stimulating Hormone 2.59 uIU/mL (0.360-3.740)
--- NOTE | 2020-04-17 08:19 | RAD REPORT ---
EXAM DESCRIPTION: RAD - Chest Single View - 04/16/2020 9:28 pm CLINICAL HISTORY: Altered mental status, back pain, abdominal pain COMPARISON: August 15 TECHNIQUE: AP portable chest image was obtained 04/16/2020 9:28 pm . FINDINGS: Lung volumes are low. No peripheral mass or consolidation. The heart and vasculature are a ccentuated by the low lung volumes. True failure or volume overload are doubtful. No measurable pleur al effusion and no pneumothorax. No acute bone finding. Bilateral total shoulder joint prostheses in place. No acute aortic findings suspected. IMPRESSION: Limited shallow inspiration exam without acute cardiopulmonary finding.
[2020-04-17] MEDS ORDERED: MAGNESIUM SULFATE 1 gm IVPB 1 GM/100 ML BAG IV ONE ×2 (08:34→09:15)
[2020-04-17] MEDS: APIXABAN 2.5 MG TABLET PO SCH ×2 (09:00→21:24)
[2020-04-17] MEDS: FOLIC ACID 1 MG TABLET PO SCH (09:13)
[2020-04-17] MEDS ORDERED: FOLIC ACID 1 MG TABLET ONE (09:15)
[2020-04-17] MEDS ORDERED: NA CHLORIDE 0.9% 1,000 ML ONE (09:15)
--- NOTE | 2020-04-17 09:30 | RAD REPORT ---
EXAM DESCRIPTION: - CP - 04/17/2020 8:52 am CLINICAL HISTORY: dysphasia COMPARISON: No comparisons TECHNIQUE: Real-time sonographic evaluation of bilateral carotid and vertebral systems was performed . Barrera scale and Doppler interrogation were performed with waveform tracing bilaterally. FINDINGS: Normal high resistance waveforms are noted in both external carotid arteries. The common c arotid arteries and internal carotid arteries show normal low resistance waveforms. Prominent plaquing changes are present in the midportion of the right common carotid artery joint vis ible evidence for luminal narrowing. Velocity distal to the calcification is 102 cm/second and 117 cm /second at the level of the plaquing. Right external carotid significant atherosclerotic plaquing nicky nges are present. There is plaquing in the right carotid bulb and proximal ICA. Scattered plaquing in the left common carotid artery is present. There is elevated velocity in the le ft common carotid artery reaching 127 cm/second. Plaquing extends into the left internal carotid junior ry. . Peak systolic velocity in the internal carotid artery is 231 cm/second. ICA/CCA ratios measure 1.1 on the right and 1.8 on the left. Antegrade flow seen in both vertebral arteries. Velocity values and ratios were recorded and are retained in the patient's imaging records. 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 Right-sided stenosis is estimated at 40-50% with approximately 70% stenosis on the left. No evidence of a hemodynamically significant stenosis.
--- NOTE | 2020-04-17 09:33 | RAD REPORT ---
EXAM DESCRIPTION: US - Renal Ultrasound-Complete - 04/17/2020 8:52 am CLINICAL HISTORY: eval hydro left, abnormal renal function COMPARISON: Stone Protocol dated 04/16/2020 FINDINGS: The right kidney measures 9.6 x 5.1 x 4.8 cm. The left kidney measures 11.9 x 6.2 x 5.1 c m. Cortical thickness and echogenicity are normal range for both kidneys. No right-sided hydronephros is. Ebrv-il-bldbxpib dilatation of the left renal pelvis present. Left ureter is obscured by bowel. A 16 millimeter round low-density mass inferior margin of the right kidney is most likely a cyst. A 17 mm cyst is present upper pole of the right kidney. In the lower pole of the kidney an 18 millimete r anechoic cyst is present. No solid mass of the right kidney confirmed. A 3.4 centimeter cyst is pre sent lateral mid left kidney with an additional adjacent 3.8 centimeter cyst. No solid mass of the le ft kidney. Mostly contracted urinary bladder shows no suspicious finding. IMPRESSION: Mild to moderate dilatation of the left renal collecting system is present with the uret er obscured by bowel. No obstructing mass or calculus identifiable at sonography. Bilateral renal cysts are present. No other significant findings.
[2020-04-17] MEDS ORDERED: PNEUMOCOCCAL VACCINE 0.5 ML IMVAC ONE (10:00)
--- NOTE | 2020-04-17 11:55 | RAD REPORT ---
EXAM DESCRIPTION: CT - Head angio - 04/17/2020 7:07 am CLINICAL HISTORY: MENTAL STATUS CHANGE COMPARISON: None. TECHNIQUE: CT HEAD ANGIOGRAPHY WITH IV CONTRAST on 04/16/2020 9:53 PM COMMERCIAL SUBCONTRACTOR This exam was performed according to our departmental dose-optimization program, which includes autom ated exposure control, adjustment of the mA and/or kV according to patient size and/or use of iterati ve reconstruction technique. MIP reconstructions were generated. Stenoses are calculated by NASCET criteria. FINDINGS: Intracranially the cavernous segments of the internal carotid arteries are patent and symm etric bilaterally. Vertebral basilar system within normal limits for age. No aneurysm identified within the [place]. Anterior, middle, and posterior cerebral circulations patent and symmetric bilaterally. Dural sinuses are well opacified and without filling defect. IMPRESSION: Unremarkable CTA of the brain without evidence of hemodynamically significant stenosis, aneurysm or AVM. Electronically signed by: Jarret Shaikh MD 04/16/2020 11:07 PM COMMERCIAL SUBCONTRACTOR Due to temporary technical issues with the PACS/Fluency reporting system, reports are being signed by the in house radiologist without review as a courtesy to ensure prompt reporting. The interpreting r adiologist is fully responsible for the content of the report.
--- NOTE | 2020-04-17 12:12 | RAD REPORT ---
EXAM DESCRIPTION: MRI - Brain Wo Cont - 04/17/2020 11:48 am CLINICAL HISTORY: dysphasia COMPARISON: Brain Wo Cont dated 11/22/2018 TECHNIQUE: Sagittal T1-weighted images were obtained along with axial PD, heavily T2-weighted and T2 -FLAIR images. Axial DWI and ADC mapping sequences were also obtained along with coronal heavily T2-w eighted images. FINDINGS: No intracranial hemorrhage, mass or acute infarction. There is no edema or shift of midlin e structures. No extra-axial fluid collections. Barrera-matter/white matter junction is preserved. Signa l voids are seen as a normal finding in the major intracranial vessels. Atrophy and chronic ischemic changes are noted matching the CT study. Cortical thinning is seen in th e right cerebral parieto-occipital junction from old CVA. Brainstem, thalami and basal ganglia spared any significant chronic ischemic change. Mastoid air cells and paranasal sinuses are clear. IMPRESSION: No acute infarction. No hemorrhage, mass or acute intracranial finding. 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
[2020-04-17] MEDS: DIGOXIN 0.125 MG TABLET PO SCH (15:00)
--- NOTE | 2020-04-17 16:07 | EKG ---
Test Date: 2020-04-16 Test Time: 21:13:07 Final Inspector Shuttle: ERWIN MEASUREMENT RESULTS: Intervals: Rate: 68 IL: 192 QRSD: 92 QT: 420 QTc: 446 [place]: P: 47 IL: 192 QRS: 49 T: -1 INTERPRETIVE STATEMENTS: Sinus rhythm and premature ventricular complexes or fusion complexes Nonspecific ST and T wave abnormality Abnormal ECG Compared to ECG 11/22/2018 08:14:03 Fusion complex(es) now present Ventricular premature complex(es) now present ST (T wave) deviation now present Sinus bradycardia no longer present Electronically Signed On 04-17-20 16:05:29 CHANGE CONSULTANT by Sebastian Walker
--- NOTE | 2020-04-17 17:22 | P.PN ---
Subjective Date of Service: 04/17/20 Primary Care Provider: Dr. Christensen, Dr. booth Chief Complaint: AMS According to the patient mental status is clearing but he still has slurred speech. MRI of the brain results reviewed and report no acute ischemia. Physical Examination - Vital Signs Temperature: 97.4 F Blood Pressure: 125/56 Pulse: 63 Respirations: 15 Pulse Ox (%): 96 - Physical Exam General: In no apparent distress, Oriented x2 HEENT: PERRLA, Mucous membr. moist/pink, EOMI, Sclerae nonicteric Neck: Supple, 2+ carotid pulse no bruit, JVD not distended Respiratory: Clear to auscultation bilaterally, Normal air movement Cardiovascular: No edema, Regular rate/rhythm, Normal S1 S2 Capillary refill: <2 Seconds Gastrointestinal: Normal bowel sounds, Soft and benign, Non-distended, No tenderness Musculoskeletal: No swelling, No tenderness Integumentary: No rashes, No erythema Neurological: Normal strength at 5/5 x4 extr, Cranial nerves 3-12 intact, Other (Slurred speech) - Studies Laboratory Data (last 24 hrs) 04/16/20 19:25: WBC 12.4 H, Hgb 11.7 L, Hct 35.2 L, Plt Count 235 04/16/20 19:25: Sodium 144, Potassium 4.3, BUN 19 H, Creatinine 2.20 H, Glucose 133 H, Total Bilirubin 0.8, AST 30, ALT 35, Alkaline Phosphatase 95, Lipase 144 Assessment And Plan - Current Problems (Diagnosis) (1) Altered mental status Current Visit: Yes Status: Acute (2) UTI (urinary tract infection) Current Visit: Yes Status: Acute (3) Chronic kidney disease, stage 3 Current Visit: Yes Status: Acute (4) Hydronephrosis Current Visit: Yes Status: Acute (5) Hydroureter Current Visit: Yes Status: Acute (6) Chronic atrial fibrillation Current Visit: Yes Status: Acute - Plan I suspect metabolic encephalopathy from UTI. Acute CVA ruled out. Patient started on IV Rocephin. Follow urine culture. He might have passed a kidney stone. Repeat ultrasound of the kidney tomorrow to follow hydronephrosis. Validate and reconcile home medications. Continue metoprolol for atrial fibrillation. Patient not anticoagulated for the afib. He is started on Eliquis. Echocardiogram is pending. PT evaluation. Physician Review: Patient Assessed, Agree with Above Assessment and Plan
[2020-04-17] MEDS ORDERED: METOPROLOL TAR 25 MG TAB PO SCH (18:00)
[2020-04-17] MEDS ORDERED: ATORVASTATIN 80 MG TAB PO SCH (21:00)
[2020-04-17] MEDS: CEFTRIAXONE/SWI 1gm 1 GM/10 ML SYR IV SCH (21:25)
[2020-04-17] MEDS: GABAPENTIN 300 MG CAP PO PRN (22:32)
[2020-04-18 06:05] LABS: Absolute Lymphocytes (CBC) 1.6 K/uL (0.7-4.9); Basophils % 0.3 % (0-1.3); Hematocrit 29.3 % (39.6-49.0); Lymphocytes % 22.1 % (15.3-44.8); MPV 7.6 fL (7.6-11.3); RBC Red Blood Cell Count 3.27 M/uL (4.33-5.43)
[2020-04-18 06:18] LABS: Magnesium 1.9 mg/dL (1.8-2.4); Potassium 3.8 mmol/L (3.5-5.1)
--- NOTE | 2020-04-18 07:58 | ECHO ---
HEIGHT: 5 ft 6 in WEIGHT: 180 lb 0.119 oz DATE OF STUDY: 04/17/[address]: George Horner NP 2-DIMENSIONAL: YES M.MODE: YES DOPPLER: YES COLOR FLOW: YES TDS: YES PORTABLE: YES DEFINITY: BUBBLE STUDY: DIAGNOSIS: SYSTOLIC MURMUR, CEREBRAL VASCULAR ACCIDENT CARDIAC HISTORY: CATHERIZATION: YES SURGERY: NO PROSTHETIC VALVE: NO PACEMAKER: NO MEASUREMENTS (cm) DIASTOLIC (NORMALS) SYSTOLIC (NORMALS) IVSd 1.1 (0.6-1.2) LA Diam 3.4 (1.9-4.0) LVEF 69% LVIDd 3.5 (3.5-5.7) LVIDs 2.2 (2.0-3.5) %FS 38% LVPWd 1.2 (0.6-1.2) Ao Diam 3.0 (2.0-3.7) 2 DIMENSIONAL ASSESSMENT: RIGHT ATRIUM: NORMAL LEFT ATRIUM: NORMAL RIGHT VENTRICLE: NORMAL LEFT VENTRICLE: NORMAL TRICUSPID VALVE: NORMAL MITRAL VALVE: NORMAL PULMONIC VALVE: NORMAL AORTIC VALVE: NORMAL PERICARDIAL EFFUSION: NONE AORTIC ROOT: NORMAL LEFT VENTRICULAR WALL MOTION: NORMAL DOPPLER/COLOR FLOW: MILD TRICUSPID REGURGITATION. COMMENTS: AORTIC SCLEROSIS - NO STENOSIS. NORMAL LEFT VENTRICULAR SIZE AND FUNCTION. NO MITRAL VALVE PROLAPSE. NO WALL MOTION ABNORMALITY. TECHNOLOGIST: TIA QUINTERO
[2020-04-18 08:16] LABS: Urine Protein/Creatinine Ratio 0.88 ratio (<0.15)
[2020-04-18] MEDS: FERROUS SULFATE 325 MG TAB PO SCH (08:55)
[2020-04-18] MEDS: PANTOPRAZOLE 40MG TABLET PO SCH (08:55)
[2020-04-18] MEDS: VITAMIN D 5,000 UNIT CAP PO SCH (08:55)
[2020-04-18] MEDS: ROSUVASTATIN 10 MG TAB PO SCH (08:55)
[2020-04-18] MEDS: ASPIRIN EC 325 MG TABLET PO SCH (08:55)
[2020-04-18] MEDS: DIGOXIN 0.125 MG TABLET PO SCH (08:57)
[2020-04-18] MEDS: APIXABAN 2.5 MG TABLET PO SCH ×2 (08:57→21:31)
[2020-04-18] MEDS: FOLIC ACID 1 MG TABLET PO SCH (08:57)
[2020-04-18] MEDS ORDERED: CEFTRIAXONE 1 GM/NS 50 ML 1 GM/50 ML BAG IV SCH (09:00)
[2020-04-18] MEDS ORDERED: ROSUVASTATIN 10 MG TAB PO SCH (09:00)
[2020-04-18] MEDS ORDERED: METOPROLOL TAR 50 MG TAB PO SCH ×2 (09:00→13:20)
[2020-04-18] MEDS: METOPROLOL TAR 25 MG TAB PO SCH ×3 (11:25→21:40)
--- NOTE | 2020-04-18 13:35 | CON ---
Date of Consultation: 04/18/2020 Requesting Provider: Dr. Mart Bocanegra. Reason For Consultation: Chronic kidney disease. History Of Present Illness: Mr. Chavez is a 80-year-old male, who presented to the emergency room on 04/16/2020 with significant flank pain. The patient also developed altered mental status while in [facility] emergency room. During that time, he had imaging both for possible nephrolithiasis as well as acu te CVA. The only acute finding was that the patient did have left-sided hydronephrosis, but no stone was visualized. The patient's pain did resolve while he was in the ER examination room and felt the patient may have passed a stone, although the stone was not caught for any sample. The patient is c urrently seen at the bedside with both his and son. He is eating. He feels well. He denies any fevers, chills, chest pain, shortness of breath, nausea, vomiting, or diarrhea. Blood pressure has been running a low 100s. The patient states the blood pr essure usually is in the 110 to 120 range. The patient follows with Dr. Daniel for chronic kidney disease in the setting of hypertension. His last creatinine in November 2019 was 1.7. Past Medical History: Significant for chronic kidney disease stage 3, atrial fibrillation, hypertens ion. Physical Examination: Vital Signs: Blood pressure 115/56, pulse 53, afebrile. General: No acute distress. Heart: Irregularly irregular. No murmurs, rubs, or gallops. Lungs: Grossly clear to auscultation. Abdomen: Soft, nontender. Extremities: No significant edema. Laboratory Data: Hemoglobin and hematocrit 10/29.3. Serum chemistry; BUN and creatinine 19/2.09, ma gnesium is 1.9, potassium is 3.8. UA on the showed 2+ blood with RBCs and WBCs. Protein creati nine ratio less than 1 g. Microbiology data; urine culture showing over 100,000 units of beta-hemoly tic strep. Medications: Current medications were reviewed. Continues on Eliquis, receiving ceftriaxone. Also, the patient's digoxin is 0.125 mg p.o. daily, metoprolol 25 p.o. b.i.d., receive normal saline 75 mL /h. Impression: 1.Acute kidney injury on chronic kidney disease, likely in the setting of partial obstruction versus volume depletion, acute tubular necrosis. 2.Nephrolithiasis with suspected passed nephrolith. 3.Hypertension. 4.Atrial fibrillation. Plan: The patient's renal function is showing improvement and likely stabilized over time. The shelbie ent will at this time advised to avoid NSAIDs and iodinated contrast. Should continue monitoring blo od pressure and heart rate. The patient is cleared to discharge from renal perspective. SE/MODL Voice ID: [id number] Report ID: [id number]
[2020-04-18] MEDS ORDERED: NA CHLORIDE 0.9% 500 ML IV ONE (14:12)
--- NOTE | 2020-04-18 17:06 | P.PN ---
Subjective Date of Service: 04/18/20 Primary Care Provider: Dr. Christensen, Dr. booth Chief Complaint: AMS Patient mental status has significantly improved. Noted his speech is slow and slightly slurred but he is oriented x4 His blood pressure has been borderline hypotensive today. Physical Examination - Vital Signs Temperature: 97.6 F Blood Pressure: 90/60 Pulse: 66 Respirations: 19 Pulse Ox (%): 96 - Physical Exam General: Alert, In no apparent distress HEENT: Mucous membr. moist/pink Neck: JVD not distended Respiratory: Clear to auscultation bilaterally, Normal air movement Cardiovascular: No edema, Normal S1 S2, Irregular heart rate/rhythm Gastrointestinal: Soft and benign, Non-distended, No tenderness Musculoskeletal: No swelling, No tenderness Integumentary: No rashes, No erythema Neurological: Normal strength at 5/5 x4 extr, Cranial nerves 3-12 intact, Other (Slow and mild slurred speech) Assessment And Plan - Current Problems (Diagnosis) (1) Altered mental status Current Visit: Yes Status: Acute (2) UTI (urinary tract infection) Current Visit: Yes Status: Acute (3) Chronic kidney disease, stage 3 Current Visit: Yes Status: Acute (4) Hydronephrosis Current Visit: Yes Status: Acute (5) Hydroureter Current Visit: Yes Status: Acute (6) Chronic atrial fibrillation Current Visit: Yes Status: Acute (7) Metabolic encephalopathy Current Visit: Yes Status: Acute - Plan Metabolic encephalopathy from UTI. Acute CVA ruled out. Patient started on IV Rocephin. Follow urine culture. He might have passed a kidney stone. Borderline hypotensive today. Leukocytosis resolved. He has been afebrile. His blood pressure responded to a bolus of normal saline. Validate and reconcile home medications. Continue metoprolol and Digoxin for atrial fibrillation. He is started on Eliquis. Echocardiogram: Normal EF. Unremarkable. PT note reviewed. Patient was able to ambulate 300 feet with a cane.
[2020-04-18] MEDS: NA CHLORIDE 0.9% 1,000 ML IV SCH ×2 (17:18→21:32)
--- NOTE | 2020-04-18 20:02 | CON ---
Reason For Consultation: Altered mental status. 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 He said he was in so much pain and he became disoriented, confused, he could not find words, and he would let him start o n IV. He said he was somewhat combative which he explains that the reason for his confusion. He was able to pass a stone apparently overnight and he said once that happened, he felt he returned to his normal self. His head CT scan was negative for an acute ischemic or hemorrhagic finding. His brain MRI did show atrophy and chronic ischemic changes, which is around moderate degree and there is find ing of cortical thinning in the right parieto-occipital junction from an old ischemic stroke. No acu te ischemic changes were identified. Laboratory Studies: Initially showed an elevated white blood cell count of 12.4 and today it is 7.1, hemoglobin 10.0, on admission 11.7. His chemistries did show chronic renal insufficiency with creat inine on admission 2.2 on and today is 2.09. Liver function study is unremarkable and his glucose today 95, calcium corrected to 1.9 from 1.7, and urinalysis showed 10-20 white blood cells, 5-10 red blood cells, but negative esterase, negative nitrites, bacteria less than 20, and he was COVID-19 ne gative, and since his admission and passing the stone, he has returned to baseline level of cognitive functioning. He knows where he is and the date. Follows commands appropriately. He says, however, he has had some difficulty getting his thoughts and words out, which has been since his stroke a yea r ago. Past Medical History: As indicated, atrial fibrillation, hypertension, dyslipidemia, coronary artery disease. Surgical History: Shoulder prosthesis, right; cardiac stent; and bowel resections. Social History: The patient lives with at home. 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 Social History: No alcohol, tobacco, or IV drug use. Family History: Noncontributory. Allergies: NO KNOWN DRUG ALLERGIES. Home Medications: Protonix 40 mg daily, Crestor 40 mg daily, aspirin 325 mg daily, vitamin D3 13304 units daily, digoxin 0.125 mg daily, fish oil 700 mg daily, ferrous sulfate 350 mg daily, metoprolol 75 mg daily, valsartan/hydrochlorothiazide 80/12.5 daily, and coenzyme Q10 100 mg daily. Review of Systems: Aside from mentioned, he does have some mild arthralgias, myalgias, some difficulty getting words and thoughts out and that is more rare since his stroke. Otherwise, negative on systems review aside fr om flank pain is indicated. Physical Examination: Vital Signs: Blood pressure 123/56, pulse 58-66, temperature 97.6, oxygen saturation 96%, respirator y rate 14 to 18. Weight 180 pounds, height 5 feet 6 inches, BMI of 29. General: Dr. Chavez is resting in bed. He is in no acute distress. HEENT: He is normocephalic, atraumatic. His sclerae are anicteric. Oropharynx is pink and moist. Neck: Supple. Chest: Clear. Heart: Regular. Extremities: Show no edema, clubbing, or cyanosis. Neurologic: Alert; oriented to situation, place, time. Follows commands appropriately. Cranial ner ves 2 through 12 showed no focal deficits despite his chronic stroke. His motor examination; he has equal strength in upper and lower extremities. Sensory exam intact with a stocking-glove loss to lig ht touch and temperature. Reflexes depressed in upper and lower extremities. Coordination intact in the upper and lower extremities. He is able to show good stance and stride. 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 Plan: 1.He should continue with hydration, increase oral hydration to reduce the risk of forming kidney st ones. Also, follow up with his renal physician. 2.Treatment for atrial fibrillation should include full anticoagulation. 3.He should be on medication for dyslipidemia. 4.It should be noted that a CT angiogram of his head did identify no significant abnormalities withi n the brain; however, his carotid artery ultrasound did show about 70% proximal stenosis in the left internal carotid and 40% stenosis in the right internal carotid. As a result, he should have a 4-ves shobha angiogram in [place] to stratify possibility for angioplasty and stenting in the left internal ca rotid artery. 5.After discharge, he may follow up with Dr. Salgado in clinic in 1 month. RACIEL Voice ID: [id number] Report ID: [id number]
[2020-04-18] MEDS: CEFTRIAXONE/SWI 1gm 1 GM/10 ML SYR IV SCH (21:31)
[2020-04-18] MEDS: GABAPENTIN 300 MG CAP PO PRN (21:31)
[2020-04-19] MEDS: METOPROLOL TAR 25 MG TAB PO SCH (06:02)
[2020-04-19] MEDS: NA CHLORIDE 0.9% 1,000 ML IV SCH ×2 (06:14→08:42)
[2020-04-19] MEDS: ROSUVASTATIN 10 MG TAB PO SCH (08:39)
[2020-04-19] MEDS: VITAMIN D 5,000 UNIT CAP PO SCH (08:39)
[2020-04-19] MEDS: FERROUS SULFATE 325 MG TAB PO SCH (08:40)
[2020-04-19] MEDS: APIXABAN 2.5 MG TABLET PO SCH (08:40)
[2020-04-19] MEDS: ASPIRIN EC 325 MG TABLET PO SCH (08:40)
[2020-04-19] MEDS: FOLIC ACID 1 MG TABLET PO SCH (08:40)
[2020-04-19] MEDS: PANTOPRAZOLE 40MG TABLET PO SCH (08:40)
[2020-04-19] MEDS: DIGOXIN 0.125 MG TABLET PO SCH (08:47)
--- NOTE | 2020-04-19 09:51 | P.DS ---
Admission Date: 04/16/20 Discharge Date: 04/19/20 Primary Care Provider: Dr. 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 Patient developed altered mental status with slurred speech. Family also reported patient had trouble finding words anywhere concern for acute CVA. CT abdomen and pelvis done in the ED showed left hydronephrosis and hydroureter as well as left kidney stranding and edema suggestive of pyelonephritis. Stroke protocol was initiated in the ED. CT head was negative for acute CVA. Head CTA was negative for any vessel occlusion or aneurysm or stenosis. EKG demonstrated atrial fibrillation. Patient had mild leukocytosis. UA suggested the presence of UTI. Patient was admitted for further management. Hospital Course: Patient admitted to the medical floor and started on IV Rocephin for the UTI. MRI of the brain was performed which is negative for acute CVA. Stroke workup which included echocardiogram was also unremarkable. Carotid Doppler demonstrated 70% left internal carotid artery and 40 50% stenosis of the right internal carotid artery. Renal ultrasound demonstrated dilated left renal collecting system. No stone identified. Patient is suspected to have passed a kidney stone. Urine culture grew unknown beta-hemolytic strep. His renal images were discussed with Dr. Antonio-urology or feels patient may have and normal variant dilated renal pelvis. He also noted patient had an enlarged prostate and possibility of reflux at the ureterovesical junction. Dr. Antonio recommended follow up with him as an outpatient for evaluation for cystoscopy and to start patient on Flomax for the BPH. His atrial fibrillation was stable and with slow response during the hospital stay. He was borderline hypotensive which responded to boluses of IV normal saline. His blood pressure has been stable since then. Patient was not septic, not febrile. His mental status improved significantly dose noted his speech was a bit slow and somehow slurred. He was seen in consultation by neurology-Dr. Salgado who reiterated full anticoagulation for the atrial fibrillation and follow up with him within 1 month. Patient was maintained on Eliquis. He is discharged with Eliquis for atrial fibrillation anticoagulation. Patient medical condition has significantly improved and stable. He is also discharged with Vantin to continue treatment for complicated UTI. Vital Signs/Physical Exam: Temp Pulse Resp BP Pulse Ox 97.4 F 49 L 18 127/60 97 04/19/20 08:00 04/19/20 08:00 04/19/20 08:00 04/19/20 08:00 04/19/20 08:00 General: Alert, In no apparent distress, Oriented x3 HEENT: Mucous membr. moist/pink Neck: Supple, JVD not distended Respiratory: Clear to auscultation bilaterally, Normal air movement Cardiovascular: No edema, Normal S1 S2, Irregular heart rate/rhythm Gastrointestinal: Soft and benign, Non-distended, No tenderness Musculoskeletal: No swelling, No tenderness Integumentary: No rashes, No erythema Neurological: Normal strength at 5/5 x4 extr, Cranial nerves 3-12 intact, Abnormal speech (Slow speech) Laboratory Data at Discharge: WBC 7.1 K/uL (4.3-10.9) D 04/18/20 05:22 Hgb 10.0 g/dL (13.6-17.9) L 04/18/20 05:22 Hct 29.3 % (39.6-49.0) L 04/18/20 05:22 Plt Count 177 K/uL (152-406) 04/18/20 05:22 Sodium 144 mmol/L (136-145) 04/19/20 08:12 Potassium 4.0 mmol/L (3.5-5.1) 04/19/20 08:12 BUN 18 mg/dL (7-18) 04/19/20 08:12 Creatinine 1.72 mg/dL (0.55-1.3) H 04/19/20 08:12 Glucose 92 mg/dL (74-106) 04/19/20 08:12 Magnesium 1.9 mg/dL (1.8-2.4) 04/18/20 05:22 Total Bilirubin 0.8 mg/dL (0.2-1.0) 04/16/20 19:25 AST 30 U/L (15-37) 04/16/20 19:25 ALT 35 U/L (12-78) 04/16/20 19:25 Alkaline Phosphatase 95 U/L (45-117) 04/16/20 19:25 Triglycerides 278 mg/dL (<150) H 04/17/20 04:00 Cholesterol 96 mg/dL (<200) 04/17/20 04:00 HDL Cholesterol 26 mg/dL (40-60) L 04/17/20 04:00 Cholesterol/HDL Ratio 3.69 04/17/20 04:00 Lipase 144 U/L (73-393) 04/16/20 19:25 Home Medications: Pantoprazole [Protonix Tab*] 40 mg PO DAILY 10/23/11 Rosuvastatin Calcium [Crestor] 40 mg PO DAILY 10/23/11 Aspirin [Aspirin EC 325 MG] 325 mg PO DAILY 04/17/20 Cholecalciferol (Vitamin D3) [Vitamin D3] 10,000 unit PO DAILY 04/17/20 Digoxin [Lanoxin*] 0.125 mg PO DAILY 04/17/20 Docosahexanoic AC/Epa [Fish Oil 1,000 MG*] 700 mg PO DAILY 04/17/20 Ferrous Sulfate [Iron] 350 mg PO DAILY 04/17/20 Metoprolol Tartrate 25 mg PO DAILY 6PM 04/17/20 Metoprolol Tartrate 50 mg PO DAILY 04/17/20 Ubidecarenone [Co Q-10] 100 mg PO DAILY 04/17/20 Apixaban [Eliquis *] 2.5 mg PO BID #60 tablet 04/19/20 Cefpodoxime Proxetil [Vantin] 200 mg PO BID #28 tablet 04/19/20 Folic Acid 1 mg PO DAILY #30 tablet 04/19/20 Tamsulosin [Flomax] 0.4 mg PO BEDTIME #30 cap 04/19/20 New Medications: Apixaban [Eliquis *] 2.5 mg PO BID #60 tablet Tamsulosin [Flomax] 0.4 mg PO BEDTIME #30 cap Folic Acid 1 mg PO DAILY #30 tablet Cefpodoxime Proxetil [Vantin] 200 mg PO BID #28 tablet Diet: AHA Activity: Ad j luis Followup: Jose Salgado MD [ASSOCIATE-ACTIVE - CAN ADMIT] - (Within 1 month.) Chay Christensen MD [Primary Care Provider] - 1 Week Dayday Antonio [COURTESY - CAN ADMIT] - 1-2 Weeks (Call to make an appointment) Time spent managing pt's care (in minutes): 40
[2020-04-19 10:45] VITALS: O2SAT 98
[2020-04-19 14:14] VITALS: BP 122/58; TEMP 97.7
== END 2020-04-19 12:34 | disposition home or self-care (01) | DRG 689 ==
LOC: ER 16:32 → ERHOLD 23:42 → 2ND 04-17 14:35
PROVIDERS: ADMIT Internal Medicine; ATTEND Internal Medicine
DX: N13.6 Pyonephrosis (principal); G93.41 Metabolic encephalopathy; I48.20 Chronic atrial fibrillation, unspecified; I12.9 Hypertensive chronic kidney disease with stage 1 through stage 4 chronic kidney disease, or unspecified chronic kidney disease; N18.30 Chronic kidney disease, stage 3 unspecified; N17.9 Acute kidney failure, unspecified; I25.10 Atherosclerotic heart disease of native coronary artery without angina pectoris; E78.5 Hyperlipidemia, unspecified; R47.81 Slurred speech; R47.02 Dysphasia; Z88.8 Allergy status to other drugs, medicaments and biological substances; Z79.02 Long term (current) use of antithrombotics/antiplatelets; Z79.01 Long term (current) use of anticoagulants; Z79.899 Other long term (current) drug therapy; Z95.5 Presence of coronary angioplasty implant and graft; Z79.82 Long term (current) use of aspirin; Z20.828 Contact with and (suspected) exposure to other viral communicable diseases
CPT/HCPCS: 36415; 70450; 70496; 70551; 71045; 74176; 76377; 76770; 80048; 80061; 80076; 81003; 81015; 82570; 83690; 83735; 84156; 84439; 84443; 85025; 87077; 87086; 87088; 87186; 93005; 93306; 93880; 96361; 96365; 96367; 96368; 96375; 97116; 97161; 97530; 99285; J0696; J2405; J3411; J3475; J7030; J7040; Q9967; U0003

== ENCOUNTER 2023-02-15 00:33 | Inpatient (IN) | payer OTHER, MEDICARE ==
--- OUTSIDE RECORDS SUMMARY | 2023-02-15 00:39 | XMS REPORT | Continuity of Care Document ---
:1940 Author Organization [facility] t Address [address] [place] [address] [address] [place] [address] Care Team Providers Name Role Phone Roosevelt Abdalla MD Primary Care Physician Ismael Kelly Rahil Attending Clinician Unavailable Bhargav Panda Anavella Attending Clinician Unava ilable [id number] Attending Clinician Unavailable Basilio Palomo Attending Clinician Unavailable ISMAEL KELLY Attending Clinician Unavailable Quan Candelaria Attending Clinician Unavailable Unruly, Connor Attending Clinician Unavailable SANTIAGO BEST Attending Clinician Unavailable MAURICIO COUGHLIN Attending Clinician Unavailable MAURICIO COUGHLIN Attending Clinician Unavailable Mauricio Coughlin MD Attending Clinician Idania Renae Attending Clinician Unavailable Ismael Kelly Rahil Admitting Clinician Unavailable Umm Panda Anav Admitting Clinician Unavailable [id number] Admitting Clinician Unavailable Roosevelt Abdalla Admitting Clinician Unavailable CARLINE MADDEN Admitting Clinician Unavailable Quan Candelaria Admitting Clinician Unavailable Unruly, [place] Admitting Clinician Unavailable MAURICIO COUGHLIN Admitting Clinician Unavailable Payers Payer Name Policy Type Policy Number Effective Date Expiration Date S [facility] [id number] AARP AARP [id number] MEDICARE PART A \\T\\ [id number] 2007 B 00:00:00 [facility] [id number] 2018 MEDICARE SUPPLEMENT 00:00:00 Problems Condition Condition Condition Status Onset Resolution Last Treating Co mments Source Name Details Category Date Date Treatment Clinician Date 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 Added automatic ally from request for surgery [id number] Allergies, Adverse Reactions, Alerts Allergy Allergy Status Severity Reaction(s) Onset Inactive Treating Comm ents Source Name Type Date Date Clinician BACLOFEN Allergy Active EN[facility]LR 10-14 12:43: 37 BACLOFEN Allergy Active ENCCLR 10-14 12:43: 37 zolpidem DA Active SV confusion 2020-04 [facility] 1-12 [place] 00:00: d 00 [facility] baclofen DA Active [place] 2020- [facility] 9- [place] 00:00: [address] baclofen DA Active [place] AMS [facility] 9 [place] 00:00: d 00 Medical Center ZOLPIDEM DRUG Active Hallucinates Un miles INGREDI 8-05 ity of 00:00: [place] [address] [facility] No Known DA Active U 2014-04 [facility] Allergie 05-29 [place] 00:[place]: [address] Family History Family Member Diagnosis Comments Start Date Stop Date Source Natural brother No Known Problems [facility] Natural brother Cancer [facility] Natural father Cancer [facility] Natural mother Heart disease [facility] Natural sister [facility] Social History Social Habit Start Date Stop Date Quantity Comments Source [facility] of Social 2021-02-27 2021-02-[address] function 00:00:00 00:00:00 Hospital Alcohol intake 2021-02-27 2021-02-27 Current drinker [facility] 00:00:00 00:00:00 of alcohol Hospital (finding) Tobacco use and 2018-01-01 2018-01-01 Smokeless [facility] 00:00:00 00:00:00 tobacco non-user Hospital Sex Assigned At [birth year] [facility] 00[facility] Smoking Status Start Date Stop Date Source Never smoked tobacco [facility] Medications Ordered Filled Start Stop Current Ordering Indication Dosage Frequency Signature Comments Components Source Medication Medication Date Date Medication? Clinician (SIG) Name Name rosuvastati 2017-04 Yes 40mg Take 40 mg Methodi n (CRESTOR) 2-[address] 40 MG 21:47: Hospita tablet 09 l valsartan-h 2017-04 Yes 1{tbl} Take 1 Me thodi ydrochlorot 2-[address] hiazide 21:47: mouth. Hospita (DIOVAN-HCT 09 l ) 160-12.5 mg per tablet pantoprazol 2017-04 Yes 40mg Take 40 mg Methodi e 2-[address] (PROTONIX) 21:47: Hospita 40 MG EC 09 l tablet clopidogrel 2017-04 Yes 300mg Take 300 M ethodi (PLAVIX) 2-[address] 300 mg 21:47: mouth Hospita tablet 09 once. l celecoxib 2017-04 Yes 200mg Q.5D Take 200 Met hodi (CeleBREX) 2-[address] 200 MG 21:47: mouth 2 Hospita capsule 09 (two) l times a day. docosahexan 2017-04 Yes Take by Met hodi oic 2-[address] acid/epa 21:47: Hospita (FISH OIL 09 l ORAL) rosuvastati 2017-04 Yes 40mg Take 40 mg Methodi n (CRESTOR) 2-[address] 40 MG 15:47: Hospita tablet 09 l valsartan-h 2017-04 Yes 1{tbl} Take 1 Me thodi ydrochlorot 2-[address] hiazide 15:47: mouth. Hospita (DIOVAN-HCT 09 l ) 160-12.5 mg per tablet pantoprazol 2017-04 Yes 40mg Take 40 mg Methodi [facility] 2-[address] (PROTONIX) 15:47: Hospita 40 MG EC 09 l tablet clopidogrel 2017-04 Yes 300mg Take 300 M ethodi (PLAVIX) 2-[address] 300 mg 15:47: mouth Hospita tablet 09 once. l celecoxib 2017-04 Yes 200mg Q.5D Take 200 Met hodi (CeleBREX) 2-[address] 200 MG 15:47: mouth 2 Hospita capsule 09 (two) l times a day. docosahexan 2017-04 Yes Take by Met hodi oic 2-[address] acid/epa 15:47: Hospita (FISH OIL 09 l ORAL) Procedures Procedure Date / Time Performed Performing Clinician [facility] sergey [id number] 2021-03-02 00:00:00 JOSE AYON [facility] Plan of Care Planned Activity Planned Date Details Comments Source Future Scheduled 2023-02-09 SHINGLES VACCINES ([address] [facility] Hospital Test 15:25:33 of 2) [code = SHINGLES VACCINES (1 of 2)] Future Scheduled 2023-02-09 65+ PNEUMOCOCCAL [facility] Hospital Test 15:25:33 VACCINE (2 - PPSV23 or PCV20) [code = 65+ PNEUMOCOCCAL VACCINE (2 - PPSV23 or PCV20)] Future Scheduled 2023-02-09 COVID-19 VACCINE (3 - [facility] Test 15:25:33 season) [code = COVID-19 VACCINE (3 - season)] Future Scheduled 2023-02-09 INFLUENZA VACCINE (#1) [facility] Test 15:25:33 [code = INFLUENZA VACCINE (#1)] Future Scheduled COVID-19 VACCINE (1) Met [facility] Test [code = COVID-19 VACCINE (1)] Future Scheduled Hepatitis C screening [facility] Test (procedure) [code = 396599749] Future Scheduled SHINGLES VACCINES (#1) [facility] Test [code = SHINGLES VACCINES (#1)] Future Scheduled 65+ PNEUMOCOCCAL [facility] Test VACCINE (2 of 2 - PPSV23) [code = 65+ PNEUMOCOCCAL VACCINE (2 of 2 - PPSV23)] Future Scheduled INFLUENZA VACCINE [facility] Test [code = INFLUENZA VACCINE] Encounters Start End Encounter Admission Attending Care Care Encounter Source Date/Time Date/Time Type Type Clinicians Facility Department ID 2021-05-16 Outpatient 3 SYMONE KellyRASHIDA CRD [facility] 13:18:20 [facility]mael [facility] [place] 2021-05-16 Outpatient 3 [facility] ENCPL CVA 2020 [facility] 13:18:06 hez, [facility] [place] 2021-05-16 Outpatient 3 [facility] ENCPL CVA 2020 [facility] 13:17:36 hez, 1112 [facility] [place] 2021-05-16 Outpatient 3 [id number] ENCPL REF [facility] 13:17:11 [facility] [place] 2021-05-16 Outpatient 3 [id number] ENCPL CVA [facility] 13:16:07 [facility] [place] 2021-05-16 Outpatient 3 [id number] ENCPL REF [facility] 13:14:20 [facility] [place] 2019-07-06 Inpatient Stacia, HCAWU HCAWU [id number] [facility] 13:00:00 Basilio 04 [facility] 2019-06-08 Inpatient Stacia, HCAWU HCAWU [id number] [facility] 08:00:00 Basilio 77 [facility] 2021-10-14 2022-01-10 Outpatient RECERTIFIC SYMONE KELLYCLR ENCCLR [id number] [facility] 00:00:00 00:00:00 [facility] 2021-10-14 2021-10-14 Outpatient JEFF DEREKSYMONECLR ENCCLR [id number] [facility] 00:00:00 00:00:00 ADMISSION ISMAEL 2021-10-01 2021-10-12 Inpatient Mati Kelly AMARIS NAEL [id number] [facility] 17:10:00 11:15:00 [facility] 0614 [facility] [place] 2021-10-10 2021-10-10 [facility] [id number] [facility] 11:43:00 11:43:[address] [place] [address] 2021-03-01 2021-03-04 Inpatient ANA Tolliver, HCAWU TELE [id number] [facility] 14:33:00 20:06:00 [place] 06 [facility] 2021-02-07 2021-02-07 Outpatient [facility] [id number] [place] 00:00:00 00:00:00 SANTIAGO [address] 2021-02-07 2021-02-07 Outpatient [facility] [id number] [place] 00:00:00 00:00:00 SANTIAGO [address] 2021-01-10 2021-01-11 Inpatient ANA Palomo, HCAWU SURG [id number] [facility] 13:00:00 15:44:00 Basilio 74 [facility] 2019-10-04 2019-10-04 Outpatient MAURICIO NORIEGA [facility] [id number] [facility] 16:20:00 16:20:00 MAURICIO COUGHLIN [facility] 2019-10-04 2019-10-04 Office Ced [facility] [id number] 14:04:15 14:24:15 Visit Mauricio Jaeger [id number] [place] [id number] Professio [id number] nal 092 [facility] 2019-06-30 2019-06-30 Outpatient Oc, HCAWU SURG [id number] [facility] 08:00:00 08:00:00 Idania 49 [facility] 2019-06-10 2019-06-10 Outpatient MAURICIO NORIEGA [facility] [id number] [facility] 18:09:27 23:59:00 MAURICIO COUGHLIN [facility] 2019-05-10 2019-05-10 Outpatient Satcia, HCAWU SURG [id number] [facility] 13:45:00 13:45:00 Basilio 30 [facility] Results Test Description Test Time Test Comments Results Result [facility] e Comments - MRI T-SPINE W/O 2021-10-10 CONT 13:23:00 [facility] 1940 Sex: M FAX: Quan Card MD Camps: PM St: REG Name: YARON SEAY [facility] : 1940 Age/S: 81/M [address] [facility] Unit #: [id number] Loc: [place] [address] Phys: Quan Candelaria MD Acct: [id number] Dis Date: Status: REG REF PHONE #: [phone] Exam Date: 10/10/2021 1229 FAX #: Reason: PAIN EXAMS: CPT: [id number] MRI T-SPINE W/O CONT [id number] EXAM: MRI THORACIC SPINE WITHOUT CONTRAST INDICATION: PAIN COMPARISON: MRI dated March 02, 2021 TECHNIQUE: Multiplanar, multisequence noncontrast MR imaging of the thoracic spine. IV contrast: None. FINDINGS: There are Modic type I signal changes at the opposing endplates of T5-T6. Otherwise, the vertebral bodies are normal in height, alignment and signal intensity. The facet joints and spinous processes are in normal alignment. There is disc height loss throughout the thoracic spine. The thoracic spinal cord is normal in signal intensity and caliber. There are calcifications within the ligamentum flavum at the level of T10-T11 causing mild spinal canal stenosis. The posterior paraspinal soft tissues are normal. Imaged portion of the chest and abdomen demonstrates renal cysts bilaterally. 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 Calcifications within the ligamentum flavum at the level of T10-T11 causing mild spinal canal stenosis. Modic type I signal changes at the opposing endplates of T5-T6. LOCATION: B2 at 1323 Reported and signed by: Malinda Bain M.D. CC: Quan Candelaria MD Technologist: Anjum Simmons, RT(R)(MR) Transcribed Date/Time/By: 10/10/2021 (1323) :[email or web address] Orig Print D/T: S: 10/10/2021 (1596) PAGE 1 Signed Report - MRI C-SPINE W/O 2021-03-04 CONT 11:50:00 [facility] 1940 Sex: M Patient Name: YARON SEAY Unit No: [id number] EXAMS: CPT CODE: [id number] MRI C-SPINE W/O CONT [id number] Location: C3 EXAM: - MRI C-SPINE W/O CONT INDICATION: Weakness and difficulty ambulating COMPARISON: None TECHNIQUE: Multiplanar, multisequence noncontrast MR imaging of the cervical spine. FINDINGS: There is straightening of the normal cervical curvature. No vertebral body height loss is identified. No canal stenosis at the craniocervical junction. There is multilevel intervertebral disc space narrowing, most pronounced at C6-C7, with partial bony fusion across the C6-C7 intervertebral disc space. At C2-C3, no canal stenosis. There is mild right neural foraminal narrowing secondary to uncovertebral hypertrophy and facet enlargement. At C3-C4, there is moderate canal stenosis secondary to a disc osteophyte complex and redundancy of the ligamentum flavum. There is severe bilateral neural foraminal narrowing secondary to uncovertebral hypertrophy and facet enlargement, with conceivable impingement upon the exiting C4 nerve roots bilaterally. At C4-C5, there is mild canal stenosis secondary to a 2 mm central disc protrusion. There is severe bilateral neural foraminal narrowing secondary to uncovertebral hypertrophy and facet enlargement, with conceivable impingement upon the exiting C5 nerve roots bilaterally. At C5-C6, there is narrowing of the anterior thecal sac secondary to a 1 mm central disc protrusion without canal stenosis. There is severe bilateral neural foraminal narrowing secondary to uncovertebral hypertrophy and facet enlargement, with conceivable impingement upon the exiting C6 nerve roots bilaterally. At C6-C7, no canal stenosis. There is mild bilateral neural foraminal narrowing secondary to uncovertebral hypertrophy and facet enlargement. At C7-T1, there is narrowing of the anterior thecal sac secondary to 1 mm central disc protrusion, without canal stenosis. There is mild bilateral neural foraminal narrowing secondary to facet enlargement. Spinal canal contents: No convincing abnormal signal is identified within the imaged cord. [facility] NAME: YARON SEAY [address] PHYS: [place] [address] : 1940 AGE: 81 SEX: M LOC: Z.365 A PHONE #: [phone] EXAM DATE: 03/04/2021 STATUS: ADM IN FAX #: [phone] RADIOLOGY NO: PAGE 1 Signed Report (CONTINUED) Patient Name: YARON SEAY Unit No: [id number] EXAMS: CPT CODE: [id number] MRI C-SPINE W/O CONT [id number] (Continued) Paraspinal soft tissues: No abnormal edema within the dorsal paraspinous muscles or soft tissues. No prevertebral edema. IMPRESSION: 1. Straightening of the normal cervical curvature, which may be positional or degenerative in etiology. 2. Multilevel cervical spondylosis, includes moderate canal stenosis at C3-C4 and mild canal stenosis at C4-C5. There are small disc protrusions at a few additional levels. 3. Multilevel bilateral neural foraminal narrowing, worse from C3-C4 through C5-C6, as above. at 1150 Reported and signed by: Jose Cowan MD CC: Roosevelt Abdalla MD; Esteban Rivas MD Technologist: Alla Villanueva(CT)(MRI) Transcrpt Date/Tm/Trnsp: 03/04/2021 (1150) [id number] Orig Print D/T: S: 03/04/2021 (5383) [facility] NAME: YARON SEAY [address] PHYS: [place] [address] : 1940 AGE: 81 SEX: M LOC: Z.365 A PHONE #: [phone] EXAM DATE: 03/04/2021 STATUS: ADM IN FAX #: [phone] RADIOLOGY NO: PAGE 2 Signed Report - MRI BRAIN W/O 2021-03-04 CONTRAST 10:26:00 [facility] 1940 Sex: M Patient Name: YARON SEAY Unit No: [id number] EXAMS: CPT CODE: [id number] MRI BRAIN W/O CONTRAST [id number] Location: C3 EXAM: - MRI BRAIN W/O CONTRAST INDICATION: Weakness and difficulty ambulating COMPARISON: None TECHNIQUE: Multiplanar, multisequence MRI of the brain without contrast. FINDINGS: Diffusion-weighted images fail to demonstrate any recent ischemic change. No MRI evidence of intracranial hemorrhage. There is moderate, chronic diffuse parenchymal volume loss. There is chronic right corpus striatal lacunar infarct, with hemosiderin staining, suggestive of sequelae of prior, old intracranial hemorrhage. There are additional, scattered small chronic lacunar infarcts within the bilateral cerebellar hemispheres, gordon and left basal ganglia. There is a chronic region of encephalomalacia within the right parietal/temporal/occi pital junction. There are periventricular, deep and juxtacortical white matter T2/FLAIR hyperintensities, which are nonspecific but statistically most likely telemarketing sales representative of sequelae of chronic microvascular disease. The large intracranial vessels demonstrate normal flow-voids. There is mild sinonasal disease, including mucosal thickening of the maxillary sinuses and ethmoid air cells. There is a small nonspecific right mastoid effusion. The patient is status post cataract surgery of both globes. IMPRESSION 1. No acute intracranial abnormality. No evidence of recent ischemic change. 2. 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 [facility] NAME: YARON SEAY [address] PHYS: [place] [address] : 1940 AGE: 81 SEX: M LOC: Z.365 A PHONE #: [phone] EXAM DATE: 03/04/2021 STATUS: ADM IN FAX #: [phone] RADIOLOGY NO: PAGE 1 Signed Report (CONTINUED) Patient Name: YARON SEAY Unit No: [id number] EXAMS: CPT CODE: [id number] MRI BRAIN W/O CONTRAST [id number] (Continued) at 1026 Reported and signed by: Jose Cowan MD CC: Roosevelt Abdalla MD; Esteban Rivas MD Technologist: Alla Villanueva(CT)(MRI) Transcrpt Date/Tm/Trnsp: 03/04/2021 (1026) [id number] Orig Print D/T: S: 03/04/2021 (1029) [facility] [place] NAME: YARON SEAY [address] PHYS: [place] [address] : 1940 AGE: 81 SEX: M LOC: Z.365 A PHONE #: [phone] EXAM DATE: 03/04/2021 STATUS: ADM IN FAX #: [phone] RADIOLOGY NO: PAGE 2 Signed Report COMPREHENSIVE METABOLIC PANEL 2021-03-04 08:25:00 Test Item Value Reference Range Interpretation Comme nts SODIUM (test code = NA) 136 MMOL/L 137-145 L POTASSIUM (test code = K) 3.3 MMOL/L 3.5-5.1 L CHLORIDE (test code = CL) 109 MMOL/L 98-107 H CARBON DIOXIDE (test code 22 MMOL/L 22-30 N = CO2) ANION GAP (test code = 8 MMOL/L 14-24 L GAP) GLUCOSE (test code = GLU) 107 MG/DL 74-106 H BLOOD UREA NITROGEN (test 15 MG/DL 9-20 N code = BUN) GLOMERULAR FILTRATION 53 Report ing units: ml/min/1.73 m2 RATE (test code = GFR) (Cristin fied MDRD Formula)Reference Range: > or = 6 0 ml/min/1.73 m2 CREATININE (test code = 1.30 MG/DL 0.66-1.25 H CREAT) TOTAL PROTEIN (test code 5.1 G/DL 6.2-7.6 L Ort ho Clinical Diagnostic has made = PROT) us aware of new information regarding the potential i nterference ofEltrombopag ( a bone marrow stimulant used to treatthrombocyt onmenia and aplastic anemia) with sp ecific assayson the Vitros 5600 of which Total Protein is one of those assays performed in our lab.Interfe rence testing performed at [facility] determined thatEltrombopag does interfere with Vitros Total Pr otein asfollowsEltrom bopag Interference for Vitros Prod uct Total Protein:======= Eltrombopag Max Observed Avg. BiasConcentrati on Concentration Concentration== = 2.5 mg/dl 6.0 g/dl +0.41 +0.34 3.5 mg/dl 6.0 g/dl +0.50 +0.45 5 mg/dl 6.0 g/dl +0.73 +0.65 2.5 mg/dl 8.0 g/dl +0.44 +0.4 1 3.5 mg/dl 8.0 g/dl +0.55 +0.52 5 m g/dl 8.0 g/dl +0.86 +0.77 ALBUMIN (test code = ALB) 2.6 G/DL 3.5-5.0 L CALCIUM (test code = CA) 9.0 MG/DL 8.4-10.2 N BILIRUBIN TOTAL (test 0.6 MG/DL 0.2-1.3 N Eltrom bopag Interference for Vitros code = BILT) Product TBil, BuBc: Assay Eltrombopag Larisa lyte/ Max Observed Avg. Bias Rosie ntration Concentration Concentration== =TBil 7mg/dl TB il/ 1.2mg/dl +0.23mg.dl +0.2 0mg/dlBuBc 3.5mg/dl Bu/0.8mg/dl +0. 25mg/dl +0.24mg/dlBuBc 7 mg/dl Bu/14.2mg/dl +0.38mg/dl +0.2 5mg/dlBuBc 5mg/dl Bc/0mg/dl +0.25 mg/dl +0.15mg/dlBuBc 3.5mg/dl Bc/2.8 mg/dl +0.25mg/dl +0.23mg/dl SGOT/AST (test code = 130 UNITS/L 17-59 H AST) SGPT/ALT (test code = 110 UNITS/L 0-49 H ALT) ALKALINE PHOSPHATASE 112 UNITS/L 38-126 N (test code = ALKP) CPK-MB [id number] 08:25:00 Test Item Value Reference Range Interpretation Comments CREATINE KINASE (CK) 2256 UNITS/L 55-170 H Previou sly reported (test code = CK) result: UNI TS/LEdited by: [email or web address] o n 03/04/21:587636 0825: CK previo usly reported as: UN ITS/L CKMB (test code = 7.00 NG/ML 0.0-5.6 H CKMBT) CKMB INDEX (test 0.3 % 4.0-4.4 L code = CKMBI) [id number] 08:25:00 Test Item Value Reference Range Interpretation Comments TROPONIN-I (test code = TROPI) < 0.012 NG/ML 0.012-0.033 L SED [id number] 06:37:00 Test Item Value Reference Range Interpretation Comments SED RATE (test code = SEDW) > 140 MM/HR 0-15 H CBC W/AUTO [id number] 05:49:00 Test Item Value Reference Range Interpretation Comments WHITE BLOOD CELL (test code = 6.3 K/MM3 3.8-9.8 N WBC) RED BLOOD CELL (test code = 2.82 M/MM3 3.95-5.67 L RBC) HEMOGLOBIN (test code = HGB) 8.2 G/DL 12.4-16.7 L HEMATOCRIT (test code = HCT) 26.2 % 35.9-49.5 L MEAN CELL VOLUME (test code = 93 fL 81.7-96.1 N MCV) MEAN CELL HGB (test code = MCH) 29.1 pg 27.6-33.2 N MEAN CELL HGB CONCETRATION 31.3 % 32.9-35.5 L (test code = MCHC) RED CELL DISTRIBUTION WIDTH 15.4 % 12.1-15.2 H (test code = RDW) PLATELET COUNT (test code = 117 K/MM3 129-368 L PLT) MEAN PLATELET VOLUME (test code 10.4 fl 7.4-10.4 N = MPV) NEUTROPHIL % (test code = NT%) 62.6 % 43-75 N IMMATURE GRANULOCYTE % (test 0.6 % 0.0-2.0 N code = IG%) LYMPHOCYTE % (test code = LY%) 24.3 % 14-44 N MONOCYTE % (test code = MO%) 10.1 % 4-13 N EOSINOPHIL % (test code = EO%) 2.2 % 0-6 N BASOPHIL % (test code = BA%) 0.2 % 0-2 N NUCLEATED RBC % (test code = 0.0 % 0-1.0 N NRBC%) NEUTROPHIL # (test code = NT#) 3.92 K/mm3 2.0-7.6 N IMMATURE GRANULOCYTE # (test 0.04 x10 3/uL 0-0.03 H code = IG#) LYMPHOCYTE # (test code = LY#) 1.52 K/mm3 1.0-3.8 N MONOCYTE # (test code = MO#) 0.63 K/mm3 0.1-0.8 N EOSINOPHIL # (test code = EO#) 0.14 K/mm3 0.0-0.2 N BASOPHIL # (test code = BA#) 0.01 K/mm3 0.0-0.2 N NUCLEATED RBC # (test code = 0.00 K/mm3 0.0-0.1 N NRBC#) CPK-MB [id number] 19:47:00 Test Item Value Reference Range Interpretation Comments CREATINE KINASE (CK) (test code 2129 UNITS/L 55-170 H = CK) CKMB (test code = CKMBT) 7.37 NG/ML 0.0-5.6 H CKMB INDEX (test code = CKMBI) 0.3 % 4.0-4.4 L [id number] 19:47:00 Test Item Value Reference Range Interpretation Comments TROPONIN-I (test code = TROPI) < 0.012 NG/ML 0.012-0.033 L [id number] 13:50:00 Test Item Value Reference Range Interpretation Comments TROPONIN-I (test code = TROPI) < 0.012 NG/ML 0.012-0.033 L CPK-MB [id number] 11:55:00 Test Item Value Reference Range Interpretation Comments CREATINE KINASE (CK) (test code 1566 UNITS/L 55-170 H = CK) CKMB (test code = CKMBT) 8.85 NG/ML 0.0-5.6 H CKMB INDEX (test code = CKMBI) 0.6 % 4.0-4.4 L T4 [id number] 10:55:00 Test Item Value Reference Range Interpretation Comments T4 FREE (test code = T4F) 1.7 NG/DL 0.78-2.19 N CREATINE KINASE (CK)2021-03-03 10:11:00 Test Item Value Reference Range Interpretation Comments CREATINE KINASE (CK) (test code 2142 UNITS/L 55-170 H = CK) - MRI T-SPINE W/O [id number] 08:05:00 [facility] 1940 Sex: M Patient Name: YARON SEAY Unit No: [id number] EXAMS: CPT CODE: [id number] MRI T-SPINE W/O CONT [id number] B2 EXAM: - MRI T-SPINE W/O CONT HISTORY: BLE weakness TECHNIQUE: Multiplanar multisequence MR images of the thoracic spine were obtained without intravenous contrast. COMPARISON: None FINDINGS: Vertebral heights and alignment are maintained. Osseous hemangiomas in the T3 and T6 vertebral bodies. Marrow signal intensity is within normal limits. The thoracic spinal cord is normal in signal intensityand caliber. Moderate loss of disc height throughout thoracic spine. Circumferential disc bulge/osteophyte, ligamentum flavum thickening and facet hypertrophy results in moderate spinal canal stenosis at T10-11. Otherwise, no significant spinal canal or neural foraminal stenosis at any level. IMPRESSION: Degenerative changes result in moderate spinal canal stenosis at T10-11 without cord signal changes. No acute thoracic spine abnormalities. t 08 Reported and signed by: Vasiliy Jacob MD CC: Roosevelt Abdalla MD; Milvia Carmichael MD Tech nologist: Claribel Alvarez (RT)(R) Transcrpt Date/Tm/Trnsp: 03/03/2021 (804) [email or web address] Orig Print D/T: S: 03/03/2021 (0808) [facility] NAME: YARON SEAY [id number] PHYS: [id number] - [place] [address] : 1940 AGE: 81 SEX: M LOC: Z.365 A PHONE #: [phone] EXAM DATE: 03/02/2021 STATUS: ADM IN FAX #: [phone] RADIOLOGY NO: PAGE 1 Signed ReportCOMPREHENSIVE METABOLIC [id number] 05:53:00 Test Item Value Reference Range Interpretation Comments SODIUM (test code 135 MMOL/L 137-145 L = NA) POTASSIUM (test 3.5 MMOL/L 3.5-5.1 N code = K) CHLORIDE (test 107 MMOL/L 98-107 N code = CL) CARBON DIOXIDE 23 MMOL/L 22-30 N (test code = CO2) ANION GAP (test 9 MMOL/L 14-24 L code = GAP) GLUCOSE (test 106 MG/DL 74-106 code = GLU) BLOOD UREA 19 MG/DL 9-20 N NITROGEN (test code = BUN) GLOMERULAR 49 Reporting units : FILTRATION RATE ml/min/1.73 m2 (Modified (test code = GFR) MDRD Formu la)Reference Range: > or = 6 0 ml/min/1.73 m2 CREATININE (test 1.40 MG/DL 0.66-1.25 H code = CREAT) TOTAL PROTEIN 5.3 G/DL 6.2-7.6 L Ortho Clinical Diagnostic (test code = has made us juan re of PROT) newinformation regarding the potential i nterference ofEltrombopag ( a bone marrow stimulan t used to treatthrombocyt onmenia and aplastic anemia ) with specific assays on the Vitros 5600 of which Total Protein is one of thoseassays per formed in our lab.Sushile chris testing perform ed at Ortho determined that Eltrombopag does interfere with Vitros Total Protein asfollowsEltrom bopag Interference fo r Vitros Product Total Protein:======= Eltrombopag Max Observed Av g. BiasConcentrati on Concentration Concentration== ==== 2.5 mg/dl 6.0 g/dl +0.41 +0.34 3.5 mg/dl 6.0 g/dl +0.50 +0.45 5 mg/dl 6 .0 g/dl +0.73 +0.65 2.5 mg/dl 8.0 g/dl +0.44 +0.4 1 3.5 mg/dl 8.0 g/dl +0.55 +0.52 5 mg/dl 8.0 g/dl +0.86 +0.77 ALBUMIN (test 2.7 G/DL 3.5-5.0 L code = ALB) CALCIUM (test 9.0 MG/DL 8.4-10.2 N code = CA) BILIRUBIN TOTAL 0.9 MG/DL 0.2-1.3 Eltrombopag Interference (test code = for Vitros Prod uct TBil, BILT) BuBc: Assa y Eltrombopag Larisa lyte/ Max Observed Avg. B ias Concentration C oncentration Concentration== ====TBil 7mg/dl TBil/ 1. 2mg/dl +0.23mg.dl +0.2 0mg/dlBuBc 3.5mg/dl Bu/0.8 mg/dl +0.25mg/dl +0.2 4mg/dlBuBc 7 mg/dl Bu/14.2mg /dl +0.38mg/dl +0.2 5mg/dlBuBc 5mg/dl Bc/0mg/d l +0.25mg/dl +0.15mg/dlBuBc 3.5mg/dl Bc/2.8mg/dl +0. 25mg/dl +0.23mg/dl SGOT/AST (test 141 UNITS/L 17-59 H code = AST) SGPT/ALT (test 124 UNITS/L 0-49 H code = ALT) ALKALINE 127 UNITS/L 38-126 H PHOSPHATASE (test code = ALKP) PROTHROMBIN [id number] 05:35:00 Test Item Value Reference Range Interpretation Comments PROTHROMBIN TIME 15.7 SECONDS 9.5-12.7 H PATIENT (test code = PTP) INTERNATIONAL NORMAL 1.4 0.86-1.14 H The INR is to be RATIO (test code = used only for INR) monitoring oral anticoagulantth erap y. INDICATION I NR VALUE ---- ---- ---- -------1. Prophylaxis, de ep venous thrombos is, including high risk surgery. 2.0 - 3.0 2. Prophylaxis, deep venous thrombosis, hip surgery, treatm ent for deep venous thrombosis or pulmonary prevention of systemic emboli sm in patients wit h valvular heart disease, atrial fibrillation, tissue heart va lve, or acute myocar dial infarction. 2.0 - 3.0 3. Economic Analysis Director al prosthesis hear t valves, recurre nt systemic emboli sm. 3.0 - 4.5 - US ABDOMEN [id number] 08:27:00 [facility] 1940 Sex: M Patient Name: YARON SEAY Unit No: [id number] EXAMS: CPT CODE: [id number] US ABDOMEN LTD [id number] EXAM:Ultrasound abdomen limited LOCATION: C3 HISTORY: Abdominal pain COMPARISON: None available TECHNIQUE: Grayscale B-mode and color Doppler sonographic images of the right upper quadrant were obtained. Spectral Doppler analysis of the main portal vein was performed. FINDINGS: The gallbladder is normal inappearance with no cholelithiasis. No gallbladder wall thickening or pericholecystic fluid. The common bile duct is within normal limits measuring 3 mm. The liver measures 15.3 cm. Normal hepatic attenuation and no focal hepatic lesions. The main portal vein is patent with hepatopetal flow. 2 anechoic cysts of the right kidney which is otherwise unremarkable. IMPRESSION: No significant abnormalities. at 0827 Reported and signed by: Itz Carlin MD CC: Roosevelt Abdalla MD; Adair Salgado MD Technologist: LORAINE Saini(A,OB) Transcrpt Date/Tm/Trnsp: 03/02/2021 (826) [id number] Orig Print D/T: S: 03/02/2021 (829) [facility] NAME: YARON SEAY [id number] PHYS: [id number] [place] [address] : 1940 AGE: 81 SEX: M LOC: Z.365 A PHONE #: [phone] EXAM DATE: 03/02/2021 STATUS: ADM IN FAX #: [phone] RADIOLOGY NO: PAGE 1 Signed ReportCOMPREHENSIVE METABOLIC [id number] 05:52:00 Test Item Value Reference Range Interpretation Comments SODIUM (test code 138 MMOL/L 137-145 N = NA) POTASSIUM (test 3.8 MMOL/L 3.5-5.1 N code = K) CHLORIDE (test 109 MMOL/L 98-107 H code = CL) CARBON DIOXIDE 24 MMOL/L 22-30 N (test code = CO2) ANION GAP (test 9 MMOL/L 14-24 L code = GAP) GLUCOSE (test 87 MG/DL 74-106 N code = GLU) BLOOD UREA 22 MG/DL 9-20 H NITROGEN (test code = BUN) GLOMERULAR 45 Reporting units : FILTRATION RATE ml/min/1.73 m2 (Modified (test code = GFR) MDRD Formu la)Reference Range: > or = 6 0 ml/min/1.73 m2 CREATININE (test 1.50 MG/DL 0.66-1.25 H code = CREAT) TOTAL PROTEIN 5.7 G/DL 6.2-7.6 L Ortho Clinical Diagnostic (test code = has made us juan re of PROT) newinformation regarding the potential i nterference ofEltrombopag ( a bone marrow stimulan t used to treatthrombocyt onmenia and aplastic anemia ) with specific assays on the Vitros 5600 of which Total Protein is one of thoseassays per formed in our lab.Interfe manuelce testing perform ed at Ortho determined that Eltrombopag does interfere with Vitros Total Protein asfollowsEltrom bopag Interference fo r Vitros Product Total Protein:======= Eltrombopag Max Observed Av g. BiasConcentrati on Concentration Concentration== ==== 2.5 mg/dl 6.0 g/dl +0.41 +0.34 3.5 mg/dl 6.0 g /dl +0.50 +0.45 5 mg/dl 6 .0 g/dl +0.73 +0.65 2.5 mg/dl 8.0 g/dl +0.44 +0.4 1 3.5 mg/dl 8.0 g/dl +0.55 +0.52 5 mg/dl 8.0 g/dl +0.86 +0.77 ALBUMIN (test 3.0 G/DL 3.5-5.0 L code = ALB) CALCIUM (test 9.2 MG/DL 8.4-10.2 N code = CA) BILIRUBIN TOTAL 1.1 MG/DL 0.2-1.3 N Eltrombopag Interference (test code = for Vitros Prod uct TBil, BILT) BuBc: Assa y Eltrombopag Larisa lyte/ Max Observed Avg. B ias Concentration C oncentration Concentration== ====TBil 7mg/dl TBil/ 1. 2mg/dl +0.23mg.dl +0.2 0mg/dlBuBc 3.5mg/dl Bu/0.8 mg/dl +0.25mg/dl +0.2 4mg/dlBuBc 7 mg/dl Bu/14.2mg /dl +0.38mg/dl +0.2 5mg/dlBuBc 5mg/dl Bc/0mg/d l +0.25mg/dl +0.15mg/dlBuBc 3.5mg/dl Bc/2.8mg/dl +0. 25mg/dl +0.23mg/dl SGOT/AST (test 186 UNITS/L 17-59 H code = AST) SGPT/ALT (test 147 UNITS/L 0-49 H code = ALT) ALKALINE 149 UNITS/L 38-126 H PHOSPHATASE (test code = ALKP) [id number] 05:34:00 Test Item Value Reference Range Interpretation Comments AMMONIA (test code = AMM) < 9 mcMOL/L 9-30 L PROTHROMBIN [id number] 05:22:00 Test Item Value Reference Range Interpretation Comments PROTHROMBIN TIME 20.2 SECONDS 9.5-12.7 H PATIENT (test code = PTP) INTERNATIONAL NORMAL 1.8 0.86-1.14 H The INR is to be RATIO (test code = used only for INR) monitoring oral anticoagulantth erap y. INDICATION I NR VALUE ---- ---- ---- -------1. Prophylaxis, de ep venous thrombos is, including high risk surgery. 2.0 - 3.0 2. Prophylaxis, deep venous thrombosis, hip surgery, treatm ent for deep venous thrombosis or pulmonary prevention of systemic emboli sm in patients wit h valvular heart disease, atrial fibrillation, tissue heart va lve, or acute myocar dial infarction. 2.0 - 3.0 3. Economic Analysis Director al prosthesis hear t valves, recurre nt systemic emboli sm. 3.0 - 4.5 THYROID STIMULATING [id number] 22:45:00 Test Item Value Reference Range Interpretation Comments THYROID STIMULATING 6.340 MIU/L 0.465-4.68 H Please b e aware that HORMONE (test code = bias re sults for TSH TSH) may occur forpa tient who are taking Biotin suppleme nts. CBC W/AUTO [id number] 21:43:00 Test Item Value Reference Range Interpretation Comments WHITE BLOOD CELL (test code = 8.7 K/MM3 3.8-9.8 N WBC) RED BLOOD CELL (test code = 3.12 M/MM3 3.95-5.67 L RBC) HEMOGLOBIN (test code = HGB) 9.4 G/DL 12.4-16.7 L HEMATOCRIT (test code = HCT) 28.1 % 35.9-49.5 L MEAN CELL VOLUME (test code = 90 fL 81.7-96.1 MCV) MEAN CELL HGB (test code = MCH) 30.1 pg 27.6-33.2 N MEAN CELL HGB CONCETRATION 33.5 % 32.9-35.5 N (test code = MCHC) RED CELL DISTRIBUTION WIDTH 14.9 % 12.1-15.2 N (test code = RDW) PLATELET COUNT (test code = 153 K/MM3 129-368 N PLT) MEAN PLATELET VOLUME (test code 10.0 fl 7.4-10.4 N = MPV) NEUTROPHIL % (test code = NT%) 71.9 % 43-75 N IMMATURE GRANULOCYTE % (test 0.9 % 0.0-2.0 N code = IG%) LYMPHOCYTE % (test code = LY%) 17.2 % 14-44 N MONOCYTE % (test code = MO%) 9.0 % 4-13 N EOSINOPHIL % (test code = EO%) 0.9 % 0-6 N BASOPHIL % (test code = BA%) 0.1 % 0-2 N NUCLEATED RBC % (test code = 0.0 % 0-1.0 N NRBC%) NEUTROPHIL # (test code = NT#) 6.21 K/mm3 2.0-7.6 N IMMATURE GRANULOCYTE # (test 0.08 x10 3/uL 0-0.03 H code = IG#) LYMPHOCYTE # (test code = LY#) 1.49 K/mm3 1.0-3.8 N MONOCYTE # (test code = MO#) 0.78 K/mm3 0.1-0.8 N EOSINOPHIL # (test code = EO#) 0.08 K/mm3 0.0-0.2 N BASOPHIL # (test code = BA#) 0.01 K/mm3 0.0-0.2 N NUCLEATED RBC # (test code = 0.00 K/mm3 0.0-0.1 N NRBC#) - MRI L-SPINE W/O [id number] 19:10:00 [facility] 1940 Sex: M Patient Name: YARON SEAY Unit No: [id number] EXAMS: CPT CODE: [id number] MRI L-SPINE W/O CONT [id number] Location: MRI lumbar spine, 03/01/21 TECHNIQUE: MRI assessment of the lumbosacral spine without contrast was performed on a high field magnet. Multiplanar and multisequence technique acquired. COMPARISON EXAMS: None of the lumbar spine CLINICAL HISTORY: 81 year-old patient with bilateral lower extr emity weakness FINDINGS: Five [id number] lumbar appearing bodies are presumed for the purpose of this dictation in this patient with the 1st conical appearing body being denoted as S1. There is presence of anterolisthesis of L5 on S1 appear to be due to chronic bilateral pars articularis defect at L5. The slippage of L5 on S1 measures approximately 5 mm. No other significant slippage. There is presence of multilevel degenerative disc changes. Postoperative changes with fusion identified posteriorly via metallic device engaged across the spinous processes from L2 to L3. Metallic artifact obscures detail somewhat at this level. Possible laminotomy defect at this level. Do not see a significant finding at T11-T12 or at T12/L1. At L1-L2, there is hypertrophy of the facet joints and bulging of the annulus of 3 mm. There is also prominence of epidural fat at this level with resultant compromise of the thecal sac of a moderate degree. There is lateral recess narrowing and deformity of both L2 nerve root sleeves in their lateral recess. Postoperative changes again at L2-L3. Metallic spacer across the spinous processes obscures detail somewhat. Minimal bulging of the annulus appearing spondylotic. There is presence of a small degree lateral recess narrowing. No significant displacement of either L3 nerve root sleeve in its lateral recess. At L3-L4 hypertrophy of the facet joints with ligamentum flavum atrophy. Bulging of the annulus of 2 to 3 mm identified. Mild epidural fat prominence dorsally with borderline to mild central stenosis. Lateral recess narrowing of more significant degree is noted. There is deformity of both L4 nerve root sleeves. There is a moderate degree of both lateral recess and bilateral foraminal narrowing also identified. Mild deformity of both L3 nerve root sleeves in their foramina at this level. At L4-L5 hypertrophy of the facet joints with minimal bulging of theannulus. Foraminal narrowing identified without significant central stenosis. [facility] NAME: YARON SEAY [id number] PHYS: [place] [address] : 1940 AGE: 81 SEX: M LOC: Z.365 A PHONE #: [phone] EXAM DATE: 03/01/2021 STATUS: ADM IN FAX #: [phone] RADIOLOGY NO: PAGE 1 Signed Report (CONTINUED) Patient Name: YARON SEAY Unit No: [id number] EXAMS: CPT CODE: [id number] MRI L-SPINE W/O CONT [id number] (Continued) At L5-S1 there isagain a grade 1 anterolisthesis of L5 on S1 with pseudo-bulging. There is significant deformity of both L5 nerve root sleeves in their foramina with severe degree of foraminal narrowing. Mild deformityof the S1 nerve root sleeves in the lateral recesses seen at this level. There is no significant compromise of the canal centrally. IMPRESSION: Grade 1 anterolisthesis of L5 on S1 due to chronic bilate ral pars articularis defect at L5. There is pseudo-bulging and degenerative bulging considerably deforming both L5 nerve root sleeves in the foramina with severe degree of foraminal narrowing. Mild deformity of both S1 nerve root sleeves in both lateral recesses at this level Postoperative changes at L2-L3 with metallic device engaged across the spinous processes obscure detail somewhat without significant compromise of the canal at this level but with small degree of lateral recess narrowing Moderate degree of compromise of the canal due to constellation findings at L1-L2. Deformity of the L2 nerve root sleeves in their lateral recess is identified. Borderline to mild compromise of the canal atL3-L4 and with bulge deforming both L4 nerve root sleeves in both lateral recesses sees at this level at 0 Reported and signed by: Brandin Gomez MD CC: Roosevelt Abdalla MD Technologist: Claribel Alvarez (RT)(R) Transcrpt Date/Tm/Trnsp: 03/01/2021 (1909) [id number] Orig Print D/T: S: 03/01/2021 (1912) [facility] NAME: YARON SEAY [id number] PHYS: [place] [address] : 1940 AGE: 81 SEX: M LOC: Z.365 A PHONE #: [phone] EXAM DATE: 03/01/2021 STATUS: ADM IN FAX #: [phone] RADIOLOGY NO: PAGE 2 Signed ReportLACTIC ACID 2021-03-01 18:36:00 Test Item Value Reference Range Interpretation Comments LACTIC ACID (test code = LACT) 1.0 MMOL/L 0.7-2.1 N PROTHROMBIN [id number] 16:10:00 Test Item Value Reference Range Interpretation Comments PROTHROMBIN TIME 23.2 SECONDS 9.5-12.7 H PATIENT (test code = PTP) INTERNATIONAL NORMAL 2.1 0.86-1.14 H The INR is to be RATIO (test code = used only for INR) monitoring oral anticoagulantth erap y. INDICATION I NR VALUE ---- ---- ---- -------1. Prophylaxis, de ep venous thrombos is, including high risk surgery. 2.0 - 3.0 2. Prophylaxis, deep venous thrombosis, hip surgery, treatm ent for deep venous thrombosis or pulmonary prevention of systemic emboli sm in patients wit h valvular heart disease, atrial fibrillation, tissue heart va lve, or acute myocar dial infarction. 2.0 - 3.0 3. Economic Analysis Director al prosthesis hear t valves, recurre nt systemic emboli sm. 3.0 - 4.5 COMPREHENSIVE METABOLIC [id number] 16:02:00 Test Item Value Reference Range Interpretation Comments SODIUM (test code 138 MMOL/L 137-145 N = NA) POTASSIUM (test 3.3 MMOL/L 3.5-5.1 L code = K) CHLORIDE (test 108 MMOL/L 98-107 H code = CL) CARBON DIOXIDE 20 MMOL/L 22-30 L (test code = CO2) ANION GAP (test 13 MMOL/L 14-24 L code = GAP) GLUCOSE (test 94 MG/DL 74-106 N code = GLU) BLOOD UREA 20 MG/DL 9-20 NITROGEN (test code = BUN) GLOMERULAR 49 Reporting units : FILTRATION RATE ml/min/1.73 m2 (Modified (test code = GFR) MDRD Formu la)Reference Range: > or = 6 0 ml/min/1.73 m2 CREATININE (test 1.40 MG/DL 0.66-1.25 H code = CREAT) TOTAL PROTEIN 6.1 G/DL 6.2-7.6 L Ortho Clinical Diagnostic (test code = has made us juan re of PROT) newinformation regarding the potential i nterference ofEltrombopag ( a bone marrow stimulan t used to treatthrombocyt onmenia and aplastic anemia ) with specific assays on the Vitros 5600 of which Total Protein is one of thoseassays per formed in our lab.Interfe rence testing perform ed at Ortho determined that Eltrombopag does interfere with Vitros Total Protein asfollowsEltrom bopag Interference fo r Vitros Product Total Protein:======= Eltrombopag Max Observed Av g. BiasConcentrati on Concentration Concentration== ==== 2.5 mg/dl 6.0 g/dl +0.41 +0.34 3.5 mg/dl 6.0 g /dl +0.50 +0.45 5 mg/dl 6 .0 g/dl +0.73 +0.65 2.5 mg/dl 8.0 g/dl +0.44 +0.4 1 3.5 mg/dl 8.0 g/dl +0.55 +0.52 5 mg/dl 8.0 g/dl +0.86 +0.77 ALBUMIN (test 3.2 G/DL 3.5-5.0 L code = ALB) CALCIUM (test 9.3 MG/DL 8.4-10.2 N code = CA) BILIRUBIN TOTAL 1.2 MG/DL 0.2-1.3 N Eltrombopag Interference (test code = for Vitros Prod uct TBil, BILT) BuBc: Assa y Eltrombopag Larisa lyte/ Max Observed Avg. B ias Concentration C oncentration Concentration== ====TBil 7mg/dl TBil/ 1. 2mg/dl +0.23mg.dl +0.2 0mg/dlBuBc 3.5mg/dl Bu/0.8 mg/dl +0.25mg/dl +0.2 4mg/dlBuBc 7 mg/dl Bu/14.2mg /dl +0.38mg/dl +0.2 5mg/dlBuBc 5mg/dl Bc/0mg/d l +0.25mg/dl +0.15mg/dlBuBc 3.5mg/dl Bc/2.8mg/dl +0. 25mg/dl +0.23mg/dl SGOT/AST (test 232 UNITS/L 17-59 H code = AST) SGPT/ALT (test 161 UNITS/L 0-49 H code = ALT) ALKALINE 172 UNITS/L 38-126 H PHOSPHATASE (test code = ALKP) LACTIC [id number] 16:01:00 Test Item Value Reference Range Interpretation Comments LACTIC ACID (test code = LACT) 1.4 MMOL/L 0.7-2.1 N GLUCOSE BEDSIDE [id number] 07:10:00 Test Item Value Reference Range Interpretation Comments GLUCOSE BEDSIDE TESTING (test code 134 MG/DL 60-99 H = GLUBED) BASIC METABOLIC [id number] 06:19:00 Test Item Value Reference Range Interpretation Comments SODIUM (test code = 138 MMOL/L 137-145 N NA) POTASSIUM (test code = 4.2 MMOL/L 3.5-5.1 N K) CHLORIDE (test code = 111 MMOL/L 98-107 H CL) CARBON DIOXIDE (test 19 MMOL/L 22-30 L code = CO2) GLUCOSE (test code = 116 MG/DL 74-106 H GLU) BLOOD UREA NITROGEN 13 MG/DL 9-20 N (test code = BUN) GLOMERULAR FILTRATION > 60 Report ing units: RATE (test code = GFR) ml/mi n/1.73 m2 (Modified MDRD Formula)Referen ce Range: > or = 6 0 ml/min/1.73 m2 CREATININE (test code 1.00 MG/DL 0.66-1.25 N = CREAT) CALCIUM (test code = 8.4 MG/DL 8.4-10.2 N CA) CBC W/AUTO [id number] 05:50:00 Test Item Value Reference Range Interpretation Comments WHITE BLOOD CELL (test code = 8.9 K/MM3 3.8-9.8 N WBC) RED BLOOD CELL (test code = 3.19 M/MM3 3.95-5.67 L RBC) HEMOGLOBIN (test code = HGB) 9.6 G/DL 12.4-16.7 L HEMATOCRIT (test code = HCT) 32.1 % 35.9-49.5 L MEAN CELL VOLUME (test code = 101 fL 81.7-96.1 H MCV) MEAN CELL HGB (test code = MCH) 30.1 pg 27.6-33.2 N MEAN CELL HGB CONCETRATION 29.9 % 32.9-35.5 L (test code = MCHC) RED CELL DISTRIBUTION WIDTH 14.4 % 12.1-15.2 N (test code = RDW) PLATELET COUNT (test code = 100 K/MM3 129-368 L PLT) MEAN PLATELET VOLUME (test code 9.7 fl 7.4-10.4 N = MPV) NEUTROPHIL % (test code = NT%) 73.8 % 43-75 N IMMATURE GRANULOCYTE % (test 0.4 % 0.0-2.0 N code = IG%) LYMPHOCYTE % (test code = LY%) 16.4 % 14-44 N MONOCYTE % (test code = MO%) 8.7 % 4-13 N EOSINOPHIL % (test code = EO%) 0.6 % 0-6 N BASOPHIL % (test code = BA%) 0.1 % 0-2 N NUCLEATED RBC % (test code = 0.0 % 0-1.0 N NRBC%) NEUTROPHIL # (test code = NT#) 6.56 K/mm3 2.0-7.6 N IMMATURE GRANULOCYTE # (test 0.04 x10 3/uL 0-0.03 H code = IG#) LYMPHOCYTE # (test code = LY#) 1.46 K/mm3 1.0-3.8 N MONOCYTE # (test code = MO#) 0.77 K/mm3 0.1-0.8 N EOSINOPHIL # (test code = EO#) 0.05 K/mm3 0.0-0.2 N BASOPHIL # (test code = BA#) 0.01 K/mm3 0.0-0.2 N NUCLEATED RBC # (test code = 0.00 K/mm3 0.0-0.1 N NRBC#) [id number] 20:00:00 Test Item Value Reference Range Interpretation Comments ACT-ISTAT (test code = ACTI) 307 SEC 74-137 H [id number] 19:26:00 Test Item Value Reference Range Interpretation Comments ACT-ISTAT (test code = ACTI) 279 SEC 74-137 H [id number] 18:57:00 Test Item Value Reference Range Interpretation Comments ACT-ISTAT (test code = ACTI) 307 SEC 74-137 H [id number] 18:36:00 Test Item Value Reference Range Interpretation Comments ACT-ISTAT (test code = ACTI) 351 SEC 74-137 H [id number] 18:18:00 Test Item Value Reference Range Interpretation Comments ACT-ISTAT (test code = ACTI) 274 SEC 74-137 H BASIC METABOLIC [id number] 12:27:00 Test Item Value Reference Range Interpretation Comments SODIUM (test code = 141 MMOL/L 137-145 N NA) POTASSIUM (test code = 4.7 MMOL/L 3.5-5.1 N K) CHLORIDE (test code = 107 MMOL/L 98-107 N CL) CARBON DIOXIDE (test 24 MMOL/L 22-30 N code = CO2) GLUCOSE (test code = 101 MG/DL 74-106 N GLU) BLOOD UREA NITROGEN 18 MG/DL 9-20 N (test code = BUN) GLOMERULAR FILTRATION > 60 Report ing units: RATE (test code = GFR) ml/mi n/1.73 m2 (Modified MDRD Formula)Referen ce Range: > or = 6 0 ml/min/1.73 m2 CREATININE (test code 1.10 MG/DL 0.66-1.25 N = CREAT) CALCIUM (test code = 9.8 MG/DL 8.4-10.2 N CA) [id number] 12:27:00 Test Item Value Reference Range Interpretation Comments MAGNESIUM (test code = MAG) 1.8 MG/DL 1.6-2.3 N PROTHROMBIN [id number] 12:22:00 Test Item Value Reference Range Interpretation Comments PROTHROMBIN TIME 11.6 SECONDS 9.5-12.7 N PATIENT (test code = PTP) INTERNATIONAL NORMAL 1.0 0.86-1.14 N The INR is to be RATIO (test code = used only for INR) monitoring oral anticoagulantth erap y. INDICATION I NR VALUE ---- ---- ---- -------1. Prophylaxis, de ep venous thrombos is, including high risk surgery. 2.0 - 3.0 2. Prophylaxis, deep venous thrombosis, hip surgery, treatm ent for deep venous thrombosis or pulmonary prevention of systemic emboli sm in patients wit h valvular heart disease, atrial fibrillation, tissue heart va lve, or acute myocar dial infarction. 2. 0 - 3.0 3. Economic Analysis Director al prosthesis hear t valves, recurre nt systemic emboli sm. 3.0 - 4.5 PTT [id number] 12:22:00 Test Item Value Reference Range Interpretation Comments PTT ACTIVATED (test code = APTT) 35.5 SECONDS 25.1-36.5 N CBC W/AUTO [id number] 12:11:00 Test Item Value Reference Range Interpretation Comments WHITE BLOOD CELL (test code = 6.9 K/MM3 3.8-9.8 N WBC) RED BLOOD CELL (test code = 3.79 M/MM3 3.95-5.67 L RBC) HEMOGLOBIN (test code = HGB) 11.3 G/DL 12.4-16.7 L HEMATOCRIT (test code = HCT) 37.6 % 35.9-49.5 N MEAN CELL VOLUME (test code = 99 fL 81.7-96.1 H MCV) MEAN CELL HGB (test code = MCH) 29.8 pg 27.6-33.2 N MEAN CELL HGB CONCETRATION 30.1 % 32.9-35.5 L (test code = MCHC) RED CELL DISTRIBUTION WIDTH 14.1 % 12.1-15.2 N (test code = RDW) PLATELET COUNT (test code = 107 K/MM3 129-368 L PLT) MEAN PLATELET VOLUME (test code 9.2 fl 7.4-10.4 N = MPV) NEUTROPHIL % (test code = NT%) 63.1 % 43-75 N IMMATURE GRANULOCYTE % (test 1.2 % 0.0-2.0 N code = IG%) LYMPHOCYTE % (test code = LY%) 24.2 % 14-44 N MONOCYTE % (test code = MO%) 10.0 % 4-13 N EOSINOPHIL % (test code = EO%) 1.2 % 0-6 N BASOPHIL % (test code = BA%) 0.3 % 0-2 N NUCLEATED RBC % (test code = 0.0 % 0-1.0 N NRBC%) NEUTROPHIL # (test code = NT#) 4.36 K/mm3 2.0-7.6 N IMMATURE GRANULOCYTE # (test 0.08 x10 3/uL 0-0.03 H code = IG#) LYMPHOCYTE # (test code = LY#) 1.67 K/mm3 1.0-3.8 N MONOCYTE # (test code = MO#) 0.69 K/mm3 0.1-0.8 N EOSINOPHIL # (test code = EO#) 0.08 K/mm3 0.0-0.2 N BASOPHIL # (test code = BA#) 0.02 K/mm3 0.0-0.2 N NUCLEATED RBC # (test code = 0.00 K/mm3 0.0-0.1 N NRBC#) COVID 19 Asymptomatic IH [id number] 10:37:00 Test Item Value Reference Range Interpretation Comments COVID 19 NEGATIVE Negative "Negative resul ts from Asymptomatic IH AG patients with symptom (test code = onset beyondfiv e days, COVNONPUIAG) should be treat ed as presumptive, andconfirmation with a molecular assay , if necessary forpa tient management may be performed. Nega tive results do notr ule out COVID-19 and sh ould not be used as the sole basisfor treatm ent or patient managem ent decisions, includinginfect ion control decisio ns. Negative result s should beconsidered in the context of a pa tients recent exposure s,history, and the presenc e of clinical signs and symptomsconsist ent with COVID-19.This t est detects both vi able andnon-viable S ARS-CoV and SARS CoV-2. Test performance dep endson the amount of virus (antigen) in the sample." Spec Comments: PRE CATHLAB PROCEDUREBASIC METABOLIC [id number] 12:11:00 Test Item Value Reference Range Interpretation Comments SODIUM (test code = 140 MMOL/L 137-145 N NA) POTASSIUM (test code = 4.4 MMOL/L 3.5-5.1 N K) CHLORIDE (test code = 107 MMOL/L 98-107 N CL) CARBON DIOXIDE (test 24 MMOL/L 22-30 N code = CO2) GLUCOSE (test code = 94 MG/DL 74-106 N GLU) BLOOD UREA NITROGEN 25 MG/DL 9-20 H (test code = BUN) GLOMERULAR FILTRATION 35 Report ing units: RATE (test code = GFR) ml/mi n/1.73 m2 (Modified MDRD Formula)Referen ce Range: > or = 6 0 ml/min/1.73 m2 CREATININE (test code 1.90 MG/DL 0.66-1.25 H = CREAT) CALCIUM (test code = 9.7 MG/DL 8.4-10.2 N CA) [id number] 12:11:00 Test Item Value Reference Range Interpretation Comments MAGNESIUM (test code = MAG) 1.6 MG/DL 1.6-2.3 N BASIC METABOLIC [id number] 12:10:00 Test Item Value Reference Range Interpretation [...] CALCIUM (test code = MG/DL 8.7-9.7 CA) [id number] 12:10:00 Test Item Value Reference Range Interpretation Comments MAGNESIUM (test code = MAG) MG/DL 1.6-2.3 BASIC METABOLIC [id number] 12:07:00 Test Item Value Reference Range Interpretation [...] CALCIUM (test code = CA) MG/DL 8.7-9.7 [id number] 12:07:00 Test Item Value Reference Range Interpretation Comments MAGNESIUM (test code = MAG) MG/DL 1.6-2.3 PROTHROMBIN [id number] 12:05:00 Test Item Value Reference Range Interpretation Comments PROTHROMBIN TIME 10.8 SECONDS 9.6-11.6 N PATIENT (test code = PTP) INTERNATIONAL NORMAL 1.0 0.8-1.1 N The INR is to be RATIO (test code = used only for INR) monitoring oral anticoagulantth erap y. INDICATION INR VALUE ---- ---- ---- -------1. Prophylaxis, de ep venous thrombos is, including high risk surgery. 2.0 - 3.0 2. Prophylaxis, deep venous thrombosis, hip surgery, treatm ent for deep venous thrombosis or pulmonary prevention of systemic emboli sm in patients wit h valvular heart disease, atrial fibrillation, tissue heart va lve, or acute myocar dial infarction. 2.0 - 3.0 3. Economic Analysis Director al prosthesis hear t valves, recurre nt systemic emboli sm. 3.0 - 4.5 PTT [id number] 12:05:00 Test Item Value Reference Range Interpretation Comments PTT ACTIVATED (test code = APTT) 29.5 SECONDS 22.0-33.0 N CBC W/AUTO [id number] 11:45:00 Test Item Value Reference Range Interpretation [...]
[2023-02-15] MEDS ORDERED: ZIPRASIDONE MESYLA 20 MG/VIAL IM ONE (00:54)
[2023-02-15] MEDS ORDERED: WATER FOR INJ,STERILE 10 ML ONE (00:54)
[2023-02-15 01:58] LABS: Hematocrit 40.7 % (39.6-49.0); Lymphocytes % 11.7 % (15.3-44.8); MCV 85.6 fL (80-100); MPV 8.4 fL (7.6-11.3); Platelets 138 thou/uL (152-406); RBC Red Blood Cell Count 4.75 M/uL (4.33-5.43)
[2023-02-15 02:01] LABS: Specific Gravity 1.015 (1.005-1.030); Urine Bacteria <20 /HPF (<20); Urine Bilirubin NEGATIVE (Negative); Urine Blood Negative (Negative); Urine Clarity Extremely Turbid (Clear); Urine Color Light-Yellow (Yellow); Urine Crystals Unidentified Few /HPF (None Seen); Urine Glucose NEGATIVE (Negative); Urine Mucus Slight /HPF (None Seen); Urine Protein 1+ (Negative); Urine RBC <5 /HPF (None Seen); Urine Urobilinogen 1+ (Normal); Urine pH 6.5 (5.0-7.0)
[2023-02-15 02:04] LABS: Protime INR 1.12
[2023-02-15] MEDS ORDERED: CEFEPIME 2 GM VIAL ONE (02:07)
[2023-02-15] MEDS ORDERED: NA CHLORIDE 0.9% 100 ML ONE (02:07)
[2023-02-15] MEDS ORDERED: NA CHLORIDE 0.9% 1,000 ML ONE ×3 (02:07→15:17)
[2023-02-15 02:19] LABS: Albumin 3.3 g/dL (3.4-5.0); Bilirubin Total 1.1 mg/dL (0.2-1.0); Magnesium 1.9 mg/dL (1.6-2.4); Potassium 3.3 mEq/L (3.5-5.1); Protein, Total 6.9 g/dL (6.4-8.2); Troponin High Sensitivity 11.8 pg/mL (<58.9)
[2023-02-15] MEDS ORDERED: ONDANSETRON 4 MG/2 ML VIAL IV PRN (04:59)
[2023-02-15] MEDS: NA CHLORIDE 0.9% 1,000 ML IV SCH ×2 (05:00→15:00)
--- NOTE | 2023-02-15 05:02 | P.HP ---
Certification for Inpatient Patient admitted to: Inpatient With expected LOS: >2 Midnights Practitioner: I am a practitioner with admitting privileges, knowledge of patient current condition, hospital course, and medical plan of care. Services: Services provided to patient in accordance with Admission requirements found in Title 42 Section 412.3 of the Code of Federal Regulations Patient History Date of Service: 02/15/23 Reason for admission: Altered mental status, urinary tract infection, suspected sepsis. History of Present Illness: 83-year-old male patient with medical history significant for chronic atrial fibrillation, hypertension, hyperlipidemia, benign prostatic hypertrophy, history of coronary artery disease who was evaluated for episode of altered mentation. Family could not give much history of however patient was noted to be getting progressively weak and lethargic and incoherent. He was brought to the ER because of concerns and in the emergency room, UA was significantly concerning for urinary tract infection. He had a CT of the head, abdomen/pelvis and no acute abnormality. He was started on empiric antibiotic of cefepime after blood cultures and urine cultures were taken and he was admitted for inpatient care. He also had significantly elevated lactic acid of 2.9 on initial labs. Allergies No Known Allergies Allergy (Verified 03/09/19 12:12) Home Medications: Pantoprazole [Protonix Tab*] 40 mg PO DAILY 10/23/11 Rosuvastatin Calcium [Crestor] 40 mg PO DAILY 10/23/11 Aspirin [Aspirin EC 325 MG] 325 mg PO DAILY 04/17/20 Cholecalciferol (Vitamin D3) [Vitamin D3] 10,000 unit PO DAILY 04/17/20 Digoxin [Lanoxin*] 0.125 mg PO DAILY 04/17/20 Docosahexanoic AC/Epa [Fish Oil 1,000 MG*] 700 mg PO DAILY 04/17/20 Ferrous Sulfate [Iron] 350 mg PO DAILY 04/17/20 Metoprolol Tartrate 25 mg PO DAILY 6PM 04/17/20 Metoprolol Tartrate 50 mg PO DAILY 04/17/20 Ubidecarenone [Co Q-10] 100 mg PO DAILY 04/17/20 Apixaban [Eliquis *] 2.5 mg PO BID #60 tablet 04/19/20 Cefpodoxime Proxetil [Vantin] 200 mg PO BID #28 tablet 04/19/20 Folic Acid 1 mg PO DAILY #30 tablet 04/19/20 Tamsulosin [Flomax] 0.4 mg PO BEDTIME #30 cap 04/19/20 - Past Medical/Surgical History Diabetic: No -: cad, htn, sleep apnea, back pain, ruptured disc, reflux -: A fib -: HTN -: HLD -: CAD -: r shoulder prosthesis -: heart stent -: bowel resection x2 Psychosocial/ Personal History: 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 , 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 - Social History Alcohol use: Yes CD- Drugs: No Caffeine use: Yes Review of Systems is unable to be obtained Physical Examination - Physical Exam General: Delirious HEENT: Atraumatic, Normocephalic Neck: Supple Respiratory: Normal air movement Cardiovascular: Regular rate/rhythm, Normal S1 S2 Gastrointestinal: Soft and benign Musculoskeletal: No swelling Urinary: Pittman catheter - Studies Laboratory Data (last 24 hrs) 02/15/23 02/15/23 02/15/23 01:41 01:41 01:41 WBC 8.80 Hgb 14.0 Hct 40.7 Plt Count 138 L PT 12.3 INR 1.12 APTT 31.1 Sodium 137 Potassium 3.3 L BUN 15 Creatinine 1.11 Glucose 148 H Magnesium 1.9 Total Bilirubin 1.1 H AST 51 H ALT 40 Alkaline Phosphatase 272 H Assessment and Plan - Plan Toxic-metabolic encephalopathy: Patient has significant concerns for his underlying septic condition and he has elevated lactic acid of 2.9. UA is significantly concerning. Imaging study did not reveal any pneumonia or intra-abdominal pathology. We will continue to management of septic condition with IV fluid, empiric antibiotic therapy and follow trend of lactic acid. UTI: UA significantly concerning. We will continue empiric antibiotic therapy with cefepime pending further review. We will monitor cultures for adjustment. Benign prostatic hypertrophy: Patient has Pittman catheter placed. We will continue to monitor him. We will consult urology if needed. History of coronary disease: We will continue statin therapy and aspirin once oral feeds are resumed. Sepsis: Present on admission. Patient has elevated lactic acid of 2.9 but this has trended down to less than 2 with IV fluid and antibiotic administration. Deemed secondary to urinary tract infection related issue. We will monitor cultures for adjustment to therapy as needed. Follow trend of vitals closely. Prophylaxis: Present from [facility] for DVT prophylaxis CODE STATUS: Full code Disposition: We will treat his septic condition, monitor his mentation and discharge him when he is deemed clinically stable. - Advance Directives Does patient have a Living Will: No Does patient have a Durable POA for Healthcare: No
--- NOTE | 2023-02-15 05:13 | EDPHYS ---
Physician Documentation [facility] Name: Stewart Chavez Age: 83 yrs Sex: Male : 1940 Arrival Date: 02/15/2023 Time: 00:33 Bed 16 Private MD: ED Physician Ren Morel HPI: 02/15 05:13 This 83 yrs old Male presents to ER via EMS with complaints of Altered Mental Status. rt 05:13 Patient presents to the ED with altered mental status. Patient was reportedly weak for rt the past week and was given steroids by primary care. Patient acutely became altered, was found to be in foul-smelling urine. No further history obtained. Symptoms are severe in severity, no other aggravating or alleviating factors.. Historical: - Allergies: 01:06 Baclofen; kb3 - PMHx: 01:06 Atrial Fib; bowel obstruction; High Cholesterol; Hypertension; kb3 - Immunization history:: Adult Immunizations up to date, Client reports receiving the 2nd dose of the Covid vaccine, Last tetanus immunization: up to date. - Social history:: Smoking status: unknown. - Unable to obtain history due to: altered mental status. ROS: 05:13 Unable to obtain ROS due to altered mental status, rt Exam: 05:13 Head/Face: Normocephalic, atraumatic. ENT: Nares patent. No nasal discharge, no rt septal abnormalities noted. Tympanic membranes are normal and external auditory canals are clear. Oropharynx with no redness, swelling, or masses, exudates, or evidence of obstruction, uvula midline. Mucous membranes moist. Chest/axilla: Normal chest wall appearance and motion. Nontender with no deformity. No lesions are appreciated. Cardiovascular: Regular rate and rhythm with a normal S1 and S2. No gallops, murmurs, or rubs. Normal PMI, no JVD. No pulse deficits. Respiratory: Lungs have equal breath sounds bilaterally, clear to auscultation and percussion. No rales, rhonchi or wheezes noted. No increased work of breathing, no retractions or nasal flaring. Abdomen/GI: Soft, non-tender, with normal bowel sounds. No distension or tympany. No guarding or rebound. No evidence of tenderness throughout. Skin: Warm, dry with normal turgor. Normal color with no rashes, no lesions, and no evidence of cellulitis. MS/ Extremity: Pulses equal, no cyanosis. Neurovascular intact. Full, normal range of motion. 05:13 Constitutional: The patient appears Confused, agitated 05:13 Neuro: Confused, agitated, moves all 4 extremities, Vital Signs: 01:02 Temp 98.7(A); kb3 02:51 BP 112 / 54; Pulse 72; Resp 18 S; Pulse Ox 97% on R/A; km8 03:30 BP 150 / 70; Pulse 72; Resp 18 S; Pulse Ox 98% on R/A; km8 04:00 BP 136 / 64; Pulse 69; Resp 16 S; Pulse Ox 99% on R/A; km8 05:00 BP 148 / 74; Pulse 85; Resp 18; Pulse Ox 98% on R/A; km8 Eileen Coma Score: 01:30 Eye Response: spontaneous(4). Motor Response: withdraws from pain(4). Verbal Response: km8 confused(4). Total: 12. MDM: 00:39 Patient medically screened. rt 05:13 Differential Diagnosis: Sepsis, intracranial hemorrhage, electrolyte disturbance, ACS. rt Data reviewed: vital signs, nurses notes, lab test result(s), EKG, radiologic studies. Consideration of Admission/Observation Patient was admitted/placed on observation. Management of patient was discussed with the following: Hospitalist: Agrees to admit. I considered the following discharge prescriptions or medication management in the emergency department Medications were administered in the Emergency Department. See MAR. Independent interpretation of the following test(s) in the Emergency Department CT Scan: My interpretation is No intracranial hemorrhage seen on interpretation of CT scan images. Care significantly affected by the following chronic conditions: Atrial fibrillation. Counseling: I had a detailed discussion with the patient and/or guardian regarding the historical points, exam findings, and any diagnostic results supporting the discharge/admit diagnosis, lab results, radiology results, the need for further work-up and treatment in the hospital. 02/15 00:40 Order name: Blood Culture Adult (2) rt 02/15 00:40 Order name: CBC with Diff; Complete Time: 03:07 rt 02/15 00:40 Order name: CMP; Complete Time: 03:07 rt 02/15 00:40 Order name: Lactate w/ 2H reflex if indic.; Complete Time: 03:07 rt 02/15 00:40 Order name: Protime (+inr); Complete Time: 03:07 rt 02/15 00:40 Order name: Ptt, Activated; Complete Time: 03:07 rt 02/15 00:40 Order name: Urinalysis w/ reflexes; Complete Time: 03:07 rt 02/15 00:40 Order name: Troponin High Sensitivity; Complete Time: 03:07 rt 02/15 00:40 Order name: CPK; Complete Time: 03:07 rt 02/15 00:40 Order name: Magnesium; Complete Time: 03:07 rt 02/15 02:04 Order name: Urine Culture EDMS 02/15 03:12 Order name: Glucose, Ancillary Testing; Complete Time: 03:50 EDMS 02/15 05:00 Order name: Lactate Sepsis 2 HR Follow-up; Complete Time: 05:09 EDMS 02/15 08:58 Order name: Glucose, Ancillary Testing EDMS 02/15 14:39 Order name: Glucose, Ancillary Testing EDMS 02/15 20:10 Order name: Glucose, Ancillary Testing EDMS 02/15 00:40 Order name: Chest Single View XRAY rt 02/15 00:40 Order name: CT Head Brain wo Cont rt 02/15 01:04 Order name: CT Chest Abdomen Pelvis W/O Contrast rt 02/15 00:40 Order name: EKG; Complete Time: 00:41 rt 02/15 00:40 Order name: Accucheck; Complete Time: 03:20 rt 02/15 00:40 Order name: Cardiac monitoring; Complete Time: 03:20 rt 02/15 00:40 Order name: EKG - Nurse/Tech; Complete Time: 03:20 rt 02/15 00:40 Order name: IV Saline Lock - Large Bore; Complete Time: 01:49 rt 02/15 00:40 Order name: Labs collected and sent; Complete Time: 01:49 rt 02/15 00:40 Order name: O2 Per Protocol; Complete Time: 03:20 rt 02/15 00:40 Order name: O2 Sat Monitoring; Complete Time: 03:20 rt 02/15 00:40 Order name: Vital Signs; Complete Time: 03:20 rt 02/15 01:04 Order name: Pittman; Complete Time: 01:07 rt Administered Medications: 01:08 Drug: Geodon IM 10 mg IM once; may repeat once Route: IM; Site: left vastus lateralis; kb3 02:00 Follow up: Response: Marked relief of symptoms; RASS: Drowsy (-1) km8 02:46 Drug: NS 0.9% IV 1000 ml IV at 1 bolus Per protocol; 1000 mL bolus Route: IV; Rate: 1 km8 bolus; Site: left wrist; 02:46 Drug: Cefepime IVPB 2 grams IVPB at 200 ml/hr once over 30 mins; (mix in NS 100 mL) km8 Route: IVPB; Rate: 200 ml/hr; Infused Over: 30 mins; Site: left wrist; 03:19 Follow up: Response: No adverse reaction; IV Status: Completed infusion; IV Intake: km8 100ml Disposition Summary: 02/15/23 05:12 Hospitalization Ordered Notes: Hospitalization Status: Inpatient Admission rt Provider: Oz Palmer rt Condition: Fair rt Problem: new rt Symptoms: have improved rt Bed/Room Type: Standard rt Location: Telemetry/MedSurg (Inpatient)(02/15/23 19:43) [facility] Room Assignment: [facility](02/15/23 19:43) [facility] Diagnosis - Altered mental status rt - Lactic acidosis rt - UTI rt Forms: - Medication Reconciliation Form rt - SBAR form rt - Leadership Thank You Letter rt Signatures: Dispatcher [employer] Praveena Lopez, KESHAWN RN eb1 Emily Holliday, RN RN kb3 Ren Morel MD MD rt Cleo Barnes RN RN km8 Corrections: (The following items were deleted from the chart) 05:39 05:12 Telemetry/MedSurg (Inpatient) rt kb3 05:39 05:12 rt kb3 19:43 05:39 [facility] ER HOLD kb3 eb1 19:43 05:39 ERHOLD- kb3 eb1
--- NOTE | 2023-02-15 05:13 | ER ---
Nurse's Notes [facility] Name: Stewart Chavez Age: 83 yrs Sex: Male : 1940 Arrival Date: 02/15/2023 Time: 00:33 Bed 16 Private MD: Diagnosis: Altered mental status;Lactic acidosis;UTI Presentation: 02/15 01:02 Chief complaint: EMS states: EMS toned out for pt's reporting pt with AMS since kb3 0000. Reports pt has been ill x5 days, saw PCP on 02/09 and had labs drawn but no results available. Coronavirus screen: Vaccine status: Patient reports receiving the 2nd dose of the covid vaccine. Client denies travel out of the [place] in the last 14 days. Ebola Screen: Patient negative for fever greater than or equal to 101.5 degrees Fahrenheit, and additional compatible Ebola Virus Disease symptoms Patient denies exposure to infectious person. Patient denies travel to an Ebola-affected area in the 21 days before illness onset. Initial Sepsis Screen: Does the patient meet any 2 criteria? Does the patient have a suspected source of infection? Yes:. Risk Assessment: Do you want to hurt yourself or someone else? Patient reports no desire to harm self or others. Onset of symptoms was February 15, 2023 at 00:00. 01:02 Method Of Arrival: EMS: [facility] 3 01:02 Acuity: DARIUSZ 2 kb3 Triage Assessment: 01:06 General: Appears distressed, uncomfortable, Behavior is agitated, anxious, combative. kb3 Pain: Unable to use pain scale. Patient is disoriented. Neuro: Level of Consciousness is awake, alert, Oriented to person, Science Liaison are equal bilaterally Moves all extremities. Historical: - Allergies: 01:06 Baclofen; kb3 - PMHx: 01:06 Atrial Fib; bowel obstruction; High Cholesterol; Hypertension; kb3 - Immunization history:: Adult Immunizations up to date, Client reports receiving the 2nd dose of the Covid vaccine, Last tetanus immunization: up to date. - Social history:: Smoking status: unknown. - Unable to obtain history due to: altered mental status. Screenin:30 Nutritional screening: No deficits noted. Tuberculosis screening: No symptoms or risk km8 factors identified. 02:47 [facility] ED Fall Risk Assessment (Adult) History of falling in the last 3 months, km8 including since admission No falls in past 3 months (0 pts) Confusion or Disorientation Yes (5 pts) Intoxicated or Sedated No (0 pts) Impaired Gait No (0 pts) Mobility Assist Device Used No (0 pt) Altered Elimination Yes (1 pt) Score/Fall Risk Level 3 or more points = High Risk Oriented to surroundings, Maintained a safe environment, Educated pt \T\ family on fall prevention, incl call for assistance when getting out of bed, Assessed \T\ reinforced patient's understanding of fall precautions, Hourly rounding (assess needs \T\ fall precautionary measures) done, Implemented a Fall Risk Plan of Care, Remained w/in arm's length of patient and in sight while toileting, Utilized family, sitter, or virtual car seat maker as indicated. Abuse screen: Denies threats or abuse. Denies injuries from another. Assessment: 01:30 General: Appears distressed, Behavior is agitated, combative, restless, uncooperative. km8 01:30 Pain: Unable to use pain scale. Patient is disoriented. Does not appear to understand km8 pain scale. Neuro: Level of Consciousness is awake, Oriented to none Science Liaison are equal bilaterally Moves all extremities. Full function. Cardiovascular: Capillary refill < 3 seconds Patient's skin is warm and dry. Respiratory: Airway is patent Respiratory effort is even, unlabored, Respiratory pattern is regular, symmetrical. GI: No deficits noted. No signs and/or symptoms were reported involving the gastrointestinal system. : Pittman in place to gravity drainage. EENT: No signs and/or symptoms were reported regarding the EENT system. Derm: Skin is intact, is fragile, Skin is dry, Skin is normal, Skin temperature is warm Bruising that is dark purple, on bilateral forearms. Musculoskeletal: Range of motion: intact in all extremities. 02:08 General: critical lab called from [place] in lab, lactate 2.9; Dr. Morel notified . km8 02:17 Reassessment: Patient appears in no apparent distress at this time. Patient is alert, km8 oriented x 3, equal unlabored respirations, skin warm/dry/pink. Patient states symptoms have improved. General: Appears comfortable, Behavior is calm, quiet. Neuro: Level of Consciousness is awake, Oriented to none. 02:47 Reassessment: pt back from CT; at bedside; reports pt hasn't been feeling km8 well for about 1 week; he saw his PCP and is taking a steroid pack; she noticed around 2100 yesterday that he started acting different; pt has had AMS previously and found to have a kidney stone or a UTI. 03:59 Reassessment: Patient appears in no apparent distress at this time. Patient is alert, km8 oriented x 3, equal unlabored respirations, skin warm/dry/pink. pt resting with eyes closed and at bedside. 04:54 Reassessment: Patient appears in no apparent distress at this time. Patient is alert, km8 oriented x 3, equal unlabored respirations, skin warm/dry/pink. no change from prior assessment. Vital Signs: 01:02 Temp 98.7(A); kb3 02:51 BP 112 / 54; Pulse 72; Resp 18 S; Pulse Ox 97% on R/A; km8 03:30 BP 150 / 70; Pulse 72; Resp 18 S; Pulse Ox 98% on R/A; km8 04:00 BP 136 / 64; Pulse 69; Resp 16 S; Pulse Ox 99% on R/A; km8 05:00 BP 148 / 74; Pulse 85; Resp 18; Pulse Ox 98% on R/A; km8 Eileen Coma Score: 01:30 Eye Response: spontaneous(4). Motor Response: withdraws from pain(4). Verbal Response: km8 confused(4). Total: 12. ED Course: 00:39 Patient arrived in ED. rv1 00:39 Ren Morel MD is Attending Physician. rt 01:00 Cleo Barnes, KESHAWN is Primary Nurse. km8 01:06 Triage completed. kb3 01:06 Arm band placed on right wrist. kb3 01:30 Appears agitated. Appears combative. Appears restless. km8 01:30 Placed in gown. Bed in low position. Call light in reach. Side rails up X2. Door km8 closed. Noise minimized. Warm blanket given. 01:45 Inserted saline lock: 22 gauge in left wrist, using aseptic technique. Blood collected. km8 01:49 Blood Culture Adult (2) Sent. km8 01:49 CBC with Diff Sent. km8 01:49 CMP Sent. km8 01:49 Lactate w/ 2H reflex if indic. Sent. km8 01:49 Protime (+inr) Sent. km8 01:49 Ptt, Activated Sent. km8 01:49 Urinalysis w/ reflexes Sent. km8 01:50 Troponin High Sensitivity Sent. km8 01:50 CPK Sent. km8 01:50 Magnesium Sent. km8 02:16 Chest Single View XRAY In Process Unspecified. EDMS 02:18 Urine Culture Sent. km8 02:45 CT Head Brain wo Cont In Process Unspecified. EDMS 02:45 CT Chest Abdomen Pelvis W/O Contrast In Process Unspecified. EDMS 05:12 Oz Palmer MD is Hospitalizing Provider. rt 21:03 Provided Education on: need to admit to family member. pf1 21:03 Patient admitted, IV remains in place. pf1 21:03 No provider procedures requiring assistance completed. pf1 Administered Medications: 01:08 Drug: Geodon IM 10 mg IM once; may repeat once Route: IM; Site: left vastus lateralis; kb3 02:00 Follow up: Response: Marked relief of symptoms; RASS: Drowsy (-1) km8 02:46 Drug: NS 0.9% IV 1000 ml IV at 1 bolus Per protocol; 1000 mL bolus Route: IV; Rate: 1 km8 bolus; Site: left wrist; 02:46 Drug: Cefepime IVPB 2 grams IVPB at 200 ml/hr once over 30 mins; (mix in NS 100 mL) km8 Route: IVPB; Rate: 200 ml/hr; Infused Over: 30 mins; Site: left wrist; 03:19 Follow up: Response: No adverse reaction; IV Status: Completed infusion; IV Intake: km8 100ml Medication: 21:03 VIS not applicable for this client. pf1 Intake: 03:19 IV: 100ml; Total: 100ml. km8 Outcome: 05:12 Decision to Hospitalize by Provider. rt 21:03 Admitted to Med/surg accompanied by nurse, via stretcher, room 207, with chart, Report pf1 called to KESHAWN Pichardo 21:03 Condition: stable 21:03 Instructed on the need for admit, Demonstrated understanding of instructions, 21:03 Patient left the ED. pf1 Signatures: Dispatcher [employer] EDMS Emily Holliday RN RN kb3 Ren Morel MD MD rt Charisma Rothman RN RN pf1 Maci Resendiz rv1 Cleo Barnes, RN RN km8
[2023-02-15] MEDS ORDERED: KCL 20 MEQ/100 mL IVPB 20 MEQ/100 ML BAG IV SCH (06:00)
[2023-02-15] MEDS: INSULIN REGULAR (HUMAN) 100 UNIT/ML SQ SCH ×3 (07:30→21:00)
[2023-02-15 08:00] VITALS: BMI 32.1
[2023-02-15] MEDS ORDERED: ENOXAPARIN 40 MG/0.4 ML SQ SCH (09:00)
[2023-02-15] MEDS ORDERED: ENOXAPARIN 40 MG/0.4 ML SQ ONE (09:06)
[2023-02-15] MEDS ORDERED: KCL 20 MEQ/100 mL IVPB 100 ML IV ONE (09:07)
[2023-02-15] MEDS ORDERED: HALOPERIDOL LACT 5 MG/ML INJ IV PRN (09:40)
[2023-02-15] MEDS ORDERED: HALOPERIDOL LACT 5 MG/ML INJ ONE ×2 (10:46→21:01)
--- NOTE | 2023-02-15 16:08 | P.PN ---
Date of Service: 02/15/[address] findings with neurology, continue ASA, martinez, statin. Will obtain MRI brain without contrast for further evaluation.
[2023-02-15] MEDS ORDERED: MELATONIN 5 MG TABLET PO PRN (18:59)
[2023-02-15] MEDS: APIXABAN 2.5 MG TABLET PO SCH (22:01)
[2023-02-15] MEDS: DONEPEZIL HCL 5 MG TAB PO SCH (22:01)
[2023-02-15] MEDS: CEFEPIME 1 GM in NA CHLORIDE 0.9% 100 ML IV SCH (22:01)
[2023-02-15] MEDS: GABAPENTIN 300 MG CAP PO SCH (22:03)
[2023-02-16] MEDS: NA CHLORIDE 0.9% 1,000 ML IV SCH ×3 (04:55→21:00)
[2023-02-16] MEDS: INSULIN REGULAR (HUMAN) 100 UNIT/ML SQ SCH ×4 (07:30→21:00)
[2023-02-16 08:04] LABS: Magnesium 1.8 mg/dL (1.6-2.4); Potassium 3.7 mEq/L (3.5-5.1)
[2023-02-16] MEDS: HOME MED 1 EA UNK (Rosuvastatin Calcium [Crestor] 40 MG Tablet) PO SCH (09:00)
[2023-02-16] MEDS ORDERED: MAGNESIUM SULFATE 1 gm IVPB 1 GM/100 ML BAG IV ONE (09:00)
--- NOTE | 2023-02-16 10:23 | RAD REPORT ---
EXAM DESCRIPTION: MRI - Brain Wo Cont - 02/16/2023 10:10 am CLINICAL HISTORY: Confusion COMPARISON: 2019 TECHNIQUE: Axial, sagittal, and coronal magnetic resonance images of the brain were obtained. FINDINGS: Mild to moderate signal within periventricular, deep and subcortical white matter probably ischemic changes secondary to small vessel disease. 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 The ventricles are normal caliber. An extra-axial fluid collection is not noted. Fluid within the sinuses/mastoids is not seen IMPRESSION: No acute intracranial abnormality noted
[2023-02-16] MEDS: CEFEPIME 1 GM in NA CHLORIDE 0.9% 100 ML IV SCH ×2 (11:20→21:51)
[2023-02-16 12:08] VITALS: O2SAT 97
--- NOTE | 2023-02-16 14:26 | RAD REPORT ---
EXAM DESCRIPTION: CT - Head Brain Wo Cont - 02/15/2023 6:24 am CLINICAL HISTORY: The patient is 83 years old and is Male; [facility] MAIN TECHNIQUE: Axial computed tomography images of the head/brain without intravenous contrast. Sagitt al and coronal reformatted images were created and reviewed. This CT exam was performed using one o r more of the following dose reduction techniques: automated exposure control, adjustment of the mA and/or kV according to patient size, and/or use of iterative reconstruction technique. COMPARISON: 04/16/2020 CT head without contrast FINDINGS: BRAIN: Evolving right posterior temporal cortical infarct with bilateral moderate perive ntricular and deep white matter microangiopathic changes. Redemonstrated central predominant global cerebral atrophy with commensurate ventricular enla rgement, not significantly changed from prior exam. No extra-axial fluid collection. No intracranial hemorrhage. No transtentorial herniation. No acute focal stevens-white matter differentiation abnormality. MIDLINE SHIFT: No midline shift. VENTRICLES: See above. BONES/JOINTS: Unremarkable. No fracture of the calvarium or visualized facial bones. SOFT TISSUES: Unremarkable. SINUSES: Unremarkable as visualized. No acute sinusitis. MASTOID AIR CELLS: Unremarkable as visualized. No mastoid effusion. IMPRESSION: Evolving chronic and remote changes with no definite acute intracranial abnormality. Electronically signed by: Isael Coronado MD 02/15/2023 3:28 AM CDT Due to temporary technical issues with the PACS/Fluency reporting system, reports are being signed by the in house radiologists without review as a courtesy to insure prompt reporting. The interpreting radiologist is fully responsible for the content of the report.
--- NOTE | 2023-02-16 14:29 | RAD REPORT ---
EXAM DESCRIPTION: CT - Chest Abd Pelvis Wo Con - 02/15/2023 6:24 am CLINICAL HISTORY: The patient is 83 years old and is Male; [facility] MAIN TECHNIQUE: Axial computed tomography images of the chest, abdomen and pelvis without intravenous con trast. Sagittal and coronal reformatted images were created and reviewed. This CT exam was perfor med using one or more of the following dose reduction techniques: automated exposure control, adjus tment of the mA and/or kV according to patient size, and/or use of iterative reconstruction technique . COMPARISON: 08/06/2020 CT abdomen pelvis without contrast FINDINGS: CHEST: LUNGS: Severe respiratory motion bilaterally with mild bilateral lower lobe subsegmental atelectasi s, but no other discrete focal consolidation. PLEURAL SPACE: Unremarkable. No significant effusion. No pneumothorax. HEART: Dense aortic valve calcification. No cardiomegaly. No significant pericardial effusion. ABDOMEN: LIVER: Unremarkable. GALLBLADDER AND BILE DUCTS: Unremarkable. No calcified stones. No ductal dilation. PANCREAS: Unremarkable. No ductal dilation. SPLEEN: Unremarkable. No splenomegaly. ADRENALS: Unremarkable. No mass. KIDNEYS AND URETERS: Simple renal cysts noted bilaterally. No dedicated imaging follow-up recommend ed. No obstructing stones. No hydronephrosis. STOMACH AND BOWEL: Redemonstrated small bowel containing umbilical hernia. No evidence of small or large bowel obstruction. Mild colonic diverticulosis without evidence of acute diverticulitis. PELVIS: APPENDIX: No findings to suggest acute appendicitis. BLADDER: Urinary bladder is decompressed around the indwelling Pittman catheter and bulb. No stones. REPRODUCTIVE: Unremarkable as visualized. CHEST, ABDOMEN and PELVIS: INTRAPERITONEAL SPACE: Unremarkable. No significant fluid collection. No free air. BONES/JOINTS: Remote left lateral eighth and ninth rib fractures. Partially visualized bilateral shoulder prostheses. Osseous bridging of the bilateral sacroiliac joints. Bilateral L5 pars defects. Multilevel spondylosis with hardware spacer demonstrated between the L2-L3 spinous processes. No dislocation. No acute osseous abnormality. SOFT TISSUES: Bilateral gynecomastia. VASCULATURE: Moderate thoracic and severe abdominal aortic calcified atherosclerosis without aneury smal dilatation. Severe calcification of the bilateral iliac and visualized femoral arteries. Severe calcification of the origins of the bilateral renal arteries and SMA. Dense multivessel coronary artery calcifications. LYMPH NODES: Unremarkable. No enlarged lymph nodes. IMPRESSION: 1. Allowing for lack of intravenous contrast and patient motion, no acute abnormality within the chest, abdomen, or pelvis.Redemonstrated small bowel containing umbilical hernia. No evide nce of small or large bowel obstruction. 2. Dense multivessel coronary artery calcifications. 3. Dense aortic valve calcification. 4. Additional nonacute findings as above. Electronically signed by: Isael Coronado MD 02/15/2023 3:38 AM CDT Due to temporary technical issues with the PACS/Fluency reporting system, reports are being signed by the in house radiologists without review as a courtesy to insure prompt reporting. The interpreting radiologist is fully responsible for the content of the report.
[2023-02-16] MEDS: MEMANTINE HCL 10 MG TABLET PO SCH (14:30)
--- NOTE | 2023-02-16 14:30 | RAD REPORT ---
EXAM DESCRIPTION: RAD - Chest Single View - 02/15/2023 2:14 am CLINICAL HISTORY: 83 years, Male, ams COMPARISON: None. FINDINGS: 1 x-ray views of the chest (portable) was obtained. No prior films are available for jr rison. There is decreased lung volume. The cardiomediastinal silhouette demonstrate to be within norm al limits. The heart is normal in size. The thoracic aorta is unremarkable. The pulmonary vasculature is normal distribution. Costophrenic angles are sharp. No areas of consolidation or masses are see n. Bilateral shoulder arthroplasties. The rest of the soft tissue and bony structures demonstrate to be unremarkable. IMPRESSION: No acute cardiopulmonary disease seen. Electronically signed by: Edilberto Cooper MD 02/15/2023 2:49 AM CDT Due to temporary technical issues with the PACS/Fluency reporting system, reports are being signed by the in house radiologists without review as a courtesy to insure prompt reporting. The interpreting radiologist is fully responsible for the content of the report.
[2023-02-16] MEDS: ASPIRIN EC 325 MG TABLET PO SCH (14:31)
[2023-02-16] MEDS: APIXABAN 2.5 MG TABLET PO SCH ×2 (14:31→21:52)
[2023-02-16] MEDS ORDERED: POTASSIUM 25 MEQ EFFERV TAB PO ONE (16:30)
[2023-02-16] MEDS ORDERED: POTASSIUM 25 MEQ EFFERV TAB ONE (18:11)
[2023-02-16] MEDS: DONEPEZIL HCL 5 MG TAB PO SCH (21:52)
[2023-02-16] MEDS: GABAPENTIN 300 MG CAP PO SCH (21:52)
[2023-02-17] MEDS: NA CHLORIDE 0.9% 1,000 ML IV SCH ×2 (04:17→07:00)
[2023-02-17] MEDS: INSULIN REGULAR (HUMAN) 100 UNIT/ML SQ SCH ×2 (07:30→11:30)
--- NOTE | 2023-02-17 07:55 | EKG ---
Test Date: 2023-02-15 Test Time: 03:14:59 Proposal Writer: MANJINDER MEASUREMENT RESULTS: Intervals: Rate: 74 DC: 166 QRSD: 94 QT: 416 QTc: 461 Rowley: P: 85 DC: 166 QRS: 55 T: 66 INTERPRETIVE STATEMENTS: Sinus rhythm with frequent premature ventricular complexes Nonspecific T wave abnormality Abnormal ECG Compared to ECG 04/16/2020 21:13:07 T-wave abnormality now present Fusion complex(es) no longer present ST (T wave) deviation no longer present Electronically Signed On 02-17-23 07:51:36 CDT by Stevie Stein
--- NOTE | 2023-02-17 07:55 | EKG ---
Test Date: 2023-02-15 Test Time: 03:16:04 Sustainability Officer: MANJINDER MEASUREMENT RESULTS: Intervals: Rate: 74 ID: [id number] QRSD: 102 QT: 416 QTc: 461 Whigham: P: 70 ID: [id number] QRS: 50 T: 35 INTERPRETIVE STATEMENTS: Sinus rhythm with frequent premature ventricular complexes Cannot rule out Inferior infarct, age undetermined Abnormal ECG Compared to ECG 04/16/2020 21:13:07 Myocardial infarct finding now present Fusion complex(es) no longer present ST (T wave) deviation no longer present Electronically Signed On 02-17-23 07:51:33 CDT by Stevie Stein
[2023-02-17] MEDS: HOME MED 1 EA UNK (Rosuvastatin Calcium [Crestor] 40 MG Tablet) PO SCH (09:00)
[2023-02-17] MEDS: CEFEPIME 1 GM in NA CHLORIDE 0.9% 100 ML IV SCH (09:04)
[2023-02-17] MEDS: MEMANTINE HCL 10 MG TABLET PO SCH (09:04)
[2023-02-17] MEDS: ASPIRIN EC 325 MG TABLET PO SCH (09:05)
[2023-02-17] MEDS: APIXABAN 2.5 MG TABLET PO SCH (09:05)
[2023-02-17 12:59] VITALS: BP 142/75; TEMP 97.7
[2023-02-17] MEDS ORDERED: AMOX/K CLAV 875 MG TAB PO SCH (21:00)
== END 2023-02-17 15:10 | disposition home or self-care (01) | DRG 871 ==
LOC: ER 00:33 → ERHOLD 04:59 → 2ND 19:54
PROVIDERS: ADMIT Internal Medicine Nephrology; ATTEND Hospitalist
DX: A41.9 Sepsis, unspecified organism (principal); G92.8 Other toxic encephalopathy; N39.0 Urinary tract infection, site not specified; I48.20 Chronic atrial fibrillation, unspecified; E87.20 Acidosis, unspecified; I10 Essential (primary) hypertension; N40.0 Benign prostatic hyperplasia without lower urinary tract symptoms; E78.00 Pure hypercholesterolemia, unspecified; I25.10 Atherosclerotic heart disease of native coronary artery without angina pectoris; Z95.5 Presence of coronary angioplasty implant and graft; Z88.8 Allergy status to other drugs, medicaments and biological substances; Z79.82 Long term (current) use of aspirin; Z79.01 Long term (current) use of anticoagulants; Z79.899 Other long term (current) drug therapy
CPT/HCPCS: 36415; 70450; 70551; 71045; 71250; 74176; 80048; 80053; 81001; 82550; 82947; 83605; 83735; 84484; 85025; 85610; 85730; 87040; 87077; 87086; 87088; 87186; 92610; 93005; 96365; 96372; 99285; J0692; J1630; J1650; J3475; J3480; J3486; J7030

== ENCOUNTER 2023-10-27 08:02 | Emergency (ER) | payer OTHER, MEDICARE ==
[2023-10-27 09:11] LABS: Specific Gravity 1.017 (1.005-1.030); Sqamous Epithelial None Seen /HPF (None Seen); Urine Bacteria None Seen /HPF (<20); Urine Bilirubin NEGATIVE (Negative); Urine Blood 3+ (Negative); Urine Clarity Extremely Turbid (Clear); Urine Color Yellow (Yellow); Urine Culture Reflex Order NOT NEEDED; Urine Glucose NEGATIVE (Negative); Urine Ketones NEGATIVE (Negative); Urine Microscopic Reflex YN ORDER UMIC; Urine Nitrite NEGATIVE (Negative); Urine Protein 3+ (Negative); Urine RBC >50 /HPF (None Seen); Urine Urobilinogen Normal (Normal); Urine WBC None Seen /HPF (<5); Urine pH 6.5 (5.0-7.0)
--- NOTE | 2023-10-27 11:45 | EDPHYS ---
Physician Documentation [facility] Name: Stewart Chavez Age: 83 yrs Sex: Male : 1940 Arrival Date: 10/27/2023 Time: 08:02 Bed 3 Private MD: ED Physician Tobias Terry HPI: 10/26 11:43 This 83 yrs old Male presents to ER via Wheelchair with complaints of Urinary Problem. rn 11:43 The patient presents with urinary symptoms, retention, unable to void. Onset: The rn symptoms/episode began/occurred last night. Severity of symptoms: At their worst the symptoms were moderate, in the emergency department the symptoms are unchanged. The patient has not experienced similar symptoms in the past. Patient reports unable to urinate since yesterday. Patient states had a UroLift a few weeks ago. No fever or chills. Had noticed a little bit of blood in urine but since last night unable to pee. No abdominal pain.. Historical: - Allergies: 08:58 Baclofen; ph - PMHx: 08:58 Atrial Fib; bowel obstruction; High Cholesterol; Hypertension; ph - Immunization history:: Adult Immunizations unknown. - Infectious Disease History:: Denies. - Social history:: Smoking status: Patient denies any tobacco usage or history of. - Family history:: not pertinent. - Hospitalizations: : No recent hospitalization is reported. ROS: 11:43 Constitutional: Negative for fever, chills, and weight loss, Cardiovascular: Negative rn for chest pain, palpitations, and edema, Respiratory: Negative for shortness of breath, cough, wheezing, and pleuritic chest pain, Abdomen/GI: Negative for abdominal pain, nausea, vomiting, diarrhea, and constipation, Back: Negative for injury and pain, : Positive for urinary retention Exam: 11:43 Constitutional: This is a well developed, well nourished patient who is awake, alert, rn and in no acute distress. Abdomen/GI: Soft, nontender Male : Normal genitalia with no discharge or lesions. Vital Signs: 08:57 BP 119 / 55; Pulse 51; Resp 18; Temp 97.8; Pulse Ox 97% on R/A; ph 10:14 BP 134 / 62; Pulse 50; Resp 18; Pulse Ox 97% on R/A; ph 11:22 BP 133 / 58; Pulse 49; Resp 18; Pulse Ox 99% on R/A; ph MDM: 08:07 Patient medically screened. rn 11:43 Differential diagnosis: UTI, urinary retention. Data reviewed: vital signs, nurses rn notes, lab test result(s), and as a result, I will discharge patient. Counseling: I had a detailed discussion with the patient and/or guardian regarding the historical points, exam findings, and any diagnostic results supporting the discharge/admit diagnosis, lab results, the need for outpatient follow up, to return to the emergency department if symptoms worsen or persist or if there are any questions or concerns that arise at home. Response to treatment: the patient's symptoms have markedly improved after treatment, and as a result, I will discharge patient. Special discussion: I discussed with the patient/guardian in detail that at this point there is no indication for admission to the hospital. It is understood, however, that if the symptoms persist or worsen the patient needs to return immediately for re-evaluation. ED course: Pittman catheter placed, draining urine, irrigated and now clear. Will discharge home with indwelling catheter and can follow-up with Dr. Antonio.. 10/26 08:08 Order name: Urinalysis w/ reflexes; Complete Time: 09:17 rn 10/26 08:08 Order name: Pittman; Complete Time: 09:01 rn 10/26 08:08 Order name: Bladder Irrigation; Complete Time: 09:01 rn Administered Medications: No medications were administered Disposition Summary: 10/27/23 11:45 Discharge Ordered Notes: Location: Home rn Problem: new rn Symptoms: have improved rn Condition: Stable rn Diagnosis - Retention of urine, unspecified rn Followup: rn - With: Dayday Antonio MD - When: As needed - Reason: Recheck today's complaints, Re-evaluation by your physician Discharge Instructions: - Discharge Summary Sheet rn - Indwelling Urinary Catheter Care, Adult rn - Acute Urinary Retention, Male rn Forms: - Medication Reconciliation Form rn - Antibiotic return to vendor - Prescription Opioid Use rn - Patient Portal Instructions rn - Leadership Thank You Letter rn Signatures: Dispatcher [employer] Tobias Garcia MD MD rn Hall, Patricia, RN RN ph
--- NOTE | 2023-10-27 11:45 | ER ---
Nurse's Notes [facility] Name: Stewart Chavez Age: 83 yrs Sex: Male : 1940 Arrival Date: 10/27/2023 Time: 08:02 Bed 3 Private MD: Diagnosis: Retention of urine, unspecified Presentation: 10/26 08:15 Chief complaint: Patient states: Had a recent bladder surgery by Dr Antonio, last night ph began to have bladder spasms and blood in urine. Coronavirus screen: Vaccine status: Patient reports receiving the 2nd dose of the covid vaccine. Ebola Screen: No symptoms or risks identified at this time. Initial Sepsis Screen: Does the patient meet any 2 criteria? No. Patient's initial sepsis screen is negative. Does the patient have a suspected source of infection? No. Patient's initial sepsis screen is negative. Risk Assessment: Do you want to hurt yourself or someone else? Patient reports no desire to harm self or others. Onset of symptoms was October 27, 2023. 08:15 Method Of Arrival: Wheelchair 08:15 Acuity: DARIUSZ 3 ph Historical: - Allergies: 08:58 Baclofen; ph - PMHx: 08:58 Atrial Fib; bowel obstruction; High Cholesterol; Hypertension; ph - Immunization history:: Adult Immunizations unknown. - Infectious Disease History:: Denies. - Social history:: Smoking status: Patient denies any tobacco usage or history of. - Family history:: not pertinent. - Hospitalizations: : No recent hospitalization is reported. Screenin:00 [facility] ED Fall Risk Assessment (Adult) History of falling in the last 3 months, ph including since admission No falls in past 3 months (0 pts) Confusion or Disorientation No (0 pts) Intoxicated or Sedated No (0 pts) Impaired Gait No (0 pts) Mobility Assist Device Used Yes (1 pt) Altered Elimination Yes (1 pt) Score/Fall Risk Level 0 - 2 = Low Risk Oriented to surroundings, Maintained a safe environment, Hourly rounding (assess needs \T\ fall precautionary measures) done. Abuse screen: Denies threats or abuse. Denies injuries from another. Nutritional screening: No deficits noted. Tuberculosis screening: No symptoms or risk factors identified. Assessment: 08:59 General: Appears in no apparent distress. Behavior is calm, cooperative. Pain: ph Complains of pain in suprapubic area. Neuro: Level of Consciousness is awake, alert, obeys commands, Oriented to person, place, time, situation. Cardiovascular: Capillary refill < 3 seconds in bilateral fingers Patient's skin is warm and dry. Respiratory: Airway is patent Respiratory effort is even, unlabored, Respiratory pattern is regular, symmetrical. : Urine is mare blood, Reports inability to void, pain in suprapubic area. Derm: Skin is pink, warm \T\ dry. Musculoskeletal: Circulation, motion, and sensation intact. 11:20 Reassessment: Patient appears in no apparent distress at this time. Patient and/or ph family updated on plan of care and expected duration. Pain level reassessed. Patient is alert, oriented x 3, equal unlabored respirations, skin warm/dry/pink. Pittman catheter in place w/ CBI, draining well w/ slightly blood tinged urine, pt states that his lower abdominal pain has resolved. Vital Signs: 08:57 BP 119 / 55; Pulse 51; Resp 18; Temp 97.8; Pulse Ox 97% on R/A; ph 10:14 BP 134 / 62; Pulse 50; Resp 18; Pulse Ox 97% on R/A; ph 11:22 BP 133 / 58; Pulse 49; Resp 18; Pulse Ox 99% on R/A; ph ED Course: 08:07 Patient arrived in ED. ph 08:07 Tobias Terry MD is Attending Physician. rn 08:15 Ling Castillo RN is Primary Nurse. ph 08:20 Triage completed. ph 08:45 Urine collected: Pittman catheter specimen, mare blood. Pittman cath inserted, using ph sterile technique, 20 Fr., by id, balloon inflated, to gravity drainage, urine specimen collected. returned bloody urine. Patient tolerated well. 08:50 Bladder irrigated via Pittman with 2 liters normal saline returned mare blood Patient ph tolerated well. 08:58 Arm band placed on. ph 09:00 Patient has correct armband on for positive identification. Bed in low position. Call ph light in reach. Side rails up X2. Pulse ox on. NIBP on. Door closed. Noise minimized. Warm blanket given. 09:01 Urinalysis w/ reflexes Sent. ph 10:14 Bladder irrigated returned clear fluid. ph 11:45 Dayday Antonio MD is Referral Physician. rn 12:16 No provider procedures requiring assistance completed. Patient did not have IV access ph during this emergency room visit. Administered Medications: No medications were administered Medication: 09:00 VIS not applicable for this client. ph Outcome: 11:45 Discharge ordered by . rn 12:16 Discharged to home ambulatory, ph 12:16 Condition: good 12:16 Discharge instructions given to patient, Instructed on discharge instructions, follow up and referral plans. Demonstrated understanding of instructions, follow-up care, 12:17 Patient left the ED. ph Signatures: Tobias Terry MD MD rn [place] RN RN ph
[2023-10-27 12:28] VITALS: BP 133/58; TEMP 97.8; O2SAT 99
== END 2023-10-27 12:17 | disposition home or self-care (01) ==
LOC: ER 08:02
DX: R33.9 Retention of urine, unspecified (principal); Z98.890 Other specified postprocedural states
CPT/HCPCS: 51700; 51702; 81001; 99285

== ENCOUNTER 2024-09-05 00:32 | Inpatient (IN) | payer OTHER, MEDICARE ==
[2024-09-05 01:29] LABS: AST/SGOT 12 U/L (15-37); Albumin 3.2 g/dL (3.4-5.0); Albumin/Globulin Ratio 0.8 (1.1-1.8); Alkaline Phosphatase 154 U/L (45-117); Anion Gap 12.4 mEq/L (5.0-15.0); BUN Blood Urea Nitrogen 25 mg/dL (7-18); Bicarbonate 23 mEq/L (21-32); Bilirubin Total 1.1 mg/dL (0.2-1.0); Globulin 3.9 g/dL (2.3-3.5); Glomerular Filtration Rate 42 ml/min (=/>90); Glucose Level 131 mg/dL (74-106); Potassium 4.4 mEq/L (3.5-5.1); Protein, Total 7.1 g/dL (6.4-8.2); Sodium Level 142 mEq/L (136-145)
[2024-09-05 01:30] LABS: ALT/SGPT < 14 U/L (16-61)
[2024-09-05 01:36] LABS: Absolute Basophils 0.1 K/uL (0-0.5); Absolute Monocytes 1.5 K/uL (0.1-1.3); Absolute Neutrophil 10.8 K/uL (1.8-8.0); Basophils % 0.4 % (0-1.3); Eosinophils % 0.3 % (0-4.4); Hematocrit 36.9 % (39.6-49.0); Hemoglobin 12.5 g/dL (13.6-17.9); Lymphocytes % 13.7 % (15.3-44.8); MCH 29.5 pg (27.0-35.0); MCHC 33.8 g/dL (32.0-36.0); MCV 87.2 fL (80-100); MPV 8.4 fL (7.6-11.3); Monocytes % 10.3 % (3.3-12.3); Neutrophils % 75.3 % (41.7-73.7); Nucleated Red Blood Cells % 0.1 % (0-0); Platelets 132 thou/uL (152-406); RBC Red Blood Cell Count 4.23 M/uL (4.33-5.43); Red Cell Distribution Width 15.6 % (12.1-15.2)
[2024-09-05 01:45] LABS: PT Prothrombin Time 20.8 SECONDS (10-13.0); Protime INR 1.88
[2024-09-05 01:46] LABS: PTT, Activated Partial Thromb 40.4 SECONDS (27.2-37.4)
--- NOTE | 2024-09-05 02:12 | RAD REPORT ---
EXAM: XR Chest, 1 View CLINICAL HISTORY: The patient is 84 years old and is Male; rigors TECHNIQUE: Frontal view of the chest. COMPARISON: No relevant prior studies available. FINDINGS: Lungs: See below. Pleural space: Left hemidiaphragm is somewhat obscured which can be seen with left pleural effusi on, as well as left lower lobe consolidation or atelectasis. No pneumothorax. Heart: Unremarkable. Mediastinum: Unremarkable. Normal mediastinal contour. Bones/joints: No acute findings. IMPRESSION: Left hemidiaphragm is somewhat obscured which can be seen with left pleural effusion, as well as le ft lower lobe consolidation or atelectasis. Electronically signed by: Adair Roach MD 09/05/2024 01:47 AM CDT 8 Transcribed Date/Time: 09/05/2024 2:12 AM
[2024-09-05] MEDS ORDERED: NA CHLORIDE 0.9% 250 ML ONE (03:09)
[2024-09-05] MEDS ORDERED: AZITHROMYCIN 500 MG INJ IVPB ONE (03:09)
[2024-09-05] MEDS ORDERED: CEFTRIAXONE 2000 MG/VIAL ONE (03:09)
[2024-09-05] MEDS ORDERED: NA CHLORIDE 0.9% 50 ML ONE (03:10)
--- NOTE | 2024-09-05 03:13 | RAD REPORT ---
EXAM: CT Head Without Intravenous Contrast CLINICAL HISTORY: The patient is 84 years old and is Male; ams TECHNIQUE: Axial computed tomography images of the head/brain without intravenous contrast. Sagittal and cor onal reformatted images were created and reviewed. This CT exam was performed using one or more of the following dose reduction techniques: automated exposure control, adjustment of the mA and/or kV according to patient size, and/or use of iterative reconstruction technique. COMPARISON: CT Head dated November 16 2023 FINDINGS: BRAIN: There is diffuse cerebral atrophy present, consistent with this patient's age. There is patchy hypoattenuation of the deep white matter which is non-specific, but most likely owing to chronic small vessel ischemic change in a patient of this age group. Encephalomalacia within the ri ght parieto-occipital lobe is present, similar to prior exam. No intracranial hemorrhage, mass effect, and midline shift is seen. There are no extra-axial fluid collections. VENTRICLES: Unremarkable. No ventriculomegaly. BONES/JOINTS: No acute fracture. SOFT TISSUES: Unremarkable. SINUSES: Unremarkable as visualized. No acute sinusitis. MASTOID AIR CELLS: Unremarkable as visualized. No mastoid effusion. ORBITS: Unremarkable as visualized. IMPRESSION: No acute intracranial findings. Electronically signed by: Sabine John MD 09/05/2024 02:27 AM CDT RP Due to temporary technical issues with the PACS/[employer] reporting system, reports are being ynes d by the in-house radiologist without review as a courtesy to ensure prompt reporting the interpreting radiologist is fully responsible for the content of the report. Transcribed Date/Time: 09/05/2024 3:12 AM
--- NOTE | 2024-09-05 03:50 | ER ---
Nurse's Notes [facility] Name: Stewart Wills Age: 84 yrs Sex: Male : 1940 Arrival Date: 09/05/2024 Time: 00:32 Bed 3 Private MD: Diagnosis: Altered mental status, unspecified;Pneumonia, unspecified organism Presentation: 09/05 00:42 Chief complaint: EMS states: toned out for R arm pain and intermittent ams for the past al5 2 days. Coronavirus screen: At this time, the client does not indicate any symptoms associated with coronavirus-19. Ebola Screen: No symptoms or risks identified at this time. Initial Sepsis Screen: Does the patient meet any 2 criteria? Altered Mental Status. No. Patient's initial sepsis screen is negative. Does the patient have a suspected source of infection? No. Patient's initial sepsis screen is negative. Risk Assessment: Do you want to hurt yourself or someone else? Patient reports no desire to harm self or others. Onset of symptoms was September 03, 2024. 00:42 Method Of Arrival: EMS: [facility] al5 00:42 Acuity: DARIUSZ 3 al5 00:42 Care prior to arrival: IV initiated. 20 GA, in the left antecubital area, Glucose al5 check: 133. Triage Assessment: 00:47 General: Appears in no apparent distress. comfortable, Behavior is calm, cooperative. al5 Pain: Complains of pain in right arm. EENT: No signs and/or symptoms were reported regarding the EENT system. Neuro: Level of Consciousness is awake, obeys commands, confused, Oriented to person, place. Cardiovascular: Capillary refill < 3 seconds Patient's skin is warm and dry. Respiratory: Airway is patent Respiratory effort is even, unlabored, Respiratory pattern is regular, symmetrical. GI: No signs and/or symptoms were reported involving the gastrointestinal system. : urine has odorous smell. Derm: Skin is intact, Skin is pink, warm \T\ dry. normal. Musculoskeletal: No signs and/or symptoms reported regarding the musculoskeletal system. Historical: - Allergies: 00:45 Baclofen; al5 - PMHx: 00:45 Atrial Fib; bowel obstruction; High Cholesterol; Hypertension; al5 - PSHx: 00:45 mitral valve replacement; al5 - Immunization history:: Adult Immunizations up to date. - Infectious Disease History:: Denies. - Social history:: Smoking status: Patient denies any tobacco usage or history of. - Family history:: not pertinent. Screenin:50 [facility] ED Fall Risk Assessment (Adult) History of falling in the last 3 months, al5 including since admission No falls in past 3 months (0 pts) Confusion or Disorientation Yes (5 pts) Intoxicated or Sedated No (0 pts) Impaired Gait Yes (1 pt) Mobility Assist Device Used No (0 pt) Altered Elimination Yes (1 pt) Score/Fall Risk Level 3 or more points = High Risk Oriented to surroundings, Maintained a safe environment, Hourly rounding (assess needs \T\ fall precautionary measures) done, Utilized family, sitter, or virtual deck hand as indicated. Abuse screen: Denies threats or abuse. Denies injuries from another. Nutritional screening: No deficits noted. Tuberculosis screening: No symptoms or risk factors identified. Assessment: 00:50 Reassessment: see triage assessment. al5 02:29 Reassessment: Patient appears in no apparent distress at this time. No changes from al5 previously documented assessment. Patient and/or family updated on plan of care and expected duration. Pain level reassessed. respirations even and unlabored. 03:30 Reassessment: Patient appears in no apparent distress at this time. No changes from vc1 previously documented assessment. Patient and/or family updated on plan of care and expected duration. Pain level reassessed. 04:05 Reassessment: Patient appears in no apparent distress at this time. No changes from al5 previously documented assessment. Patient and/or family updated on plan of care and expected duration. Pain level reassessed. 05:17 Reassessment: gilson wills (): [phone]. al5 Vital Signs: 00:42 BP 155 / 106; Pulse 76; Resp 19; Temp 99; Pulse Ox 96% on R/A; Weight 90.72 kg; Height al5 5 ft. 6 in. ; 01:00 BP 133 / 62; Pulse 70; Resp 18; Pulse Ox 95% ; al5 01:30 BP 130 / 86; Pulse 68; Resp 19; Pulse Ox 96% ; al5 02:00 BP 121 / 80; Pulse 67; Resp 19; Pulse Ox 96% ; al5 03:00 BP 140 / 76; Pulse 62; Resp 18; Pulse Ox 97% on R/A; hm5 03:30 BP 155 / 88; Pulse 63; Resp 19; Pulse Ox 96% ; al5 04:00 BP 133 / 77; Pulse 60; Resp 19; Pulse Ox 96% ; al5 00:42 Body Mass Index 32.28 (90.72 kg, 167.64 cm) al5 ED Course: 00:37 Patient arrived in ED. rv1 00:37 Ren Morel MD is Attending Physician. rt 00:42 Karo Cross RN is Primary Nurse. al5 00:45 Triage completed. al5 00:50 Arm band placed on right wrist. Patient placed in the treatment room, in view of staff al5 members, on monitoring specialist, on pulse oximetry. 00:50 Patient has correct armband on for positive identification. Placed in gown. Bed in low al5 position. Call light in reach. Side rails up X2. Provided Education on: plan of care. 00:50 No provider procedures requiring assistance completed. Maintain EMS IV. Dressing al5 intact. Good blood return noted. Site clean \T\ dry. Gauge \T\ site: 20G LAC. Flushed with 10 mL NS. 01:01 Inserted saline lock: 20 gauge in right forearm, using aseptic technique. Blood hm5 collected. Flushed with 10 mL NS. 01:20 Chest Single View XRAY In Process Unspecified. EDMS 01:45 CT Head Brain wo Cont In Process Unspecified. EDMS 03:28 UA Rfx Antonio Cult if indicated Sent. hm5 03:50 Sriram Anders MD is Hospitalizing Provider. rt 04:56 Patient admitted, IV remains in place. al5 Administered Medications: 03:30 Drug: Rocephin IV 2 grams IV at calculated rate once; Given slow IV push per [email or web address] hm5 instructions Route: IV; Rate: calculated rate; Site: right forearm; 04:04 Follow up: Response: No adverse reaction; IV Status: Completed infusion; IV Intake: [id number] 04:03 Drug: AZITHromycin IVPB 500 mg IVPB once over 1 hrs; (mix in 250 mL NS) Route: IVPB; al5 Infused Over: 1 hrs; Site: right forearm; 04:59 Follow up: IV Status: Completed infusion; IV Intake: 250ml hm5 Medication: 00:50 VIS not applicable for this client. al5 Intake: 04:04 IV: 50ml; Total: 50ml. al5 04:59 IV: 250ml; Total: 300ml. hm5 Outcome: 03:50 Decision to Hospitalize by Provider. rt 04:56 Admitted to ER Hold. Please see [facility] for further documentation. al5 04:56 Condition: stable 04:56 Instructed on the need for admit, 17:31 Patient left the ED. ss Signatures: Dispatcher [employer] EDMS Maliha Gramajo RN RN ss Zoe Godinez RN RN vc1 Ren Morel MD MD rt Maci Resendiz rv1 Karo Cross RN RN al5 Michelle Gonzalez, KESHAWN RN hm5 Corrections: (The following items were deleted from the chart) 03:40 03:00 BP 140 / 76; Pulse 18bpm; Resp 62bpm; Pulse Ox 97% RA; hm5 hm5
--- NOTE | 2024-09-05 03:50 | EDPHYS ---
Physician Documentation [facility] Name: Stewart Chavez Age: 84 yrs Sex: Male : 1940 Arrival Date: 09/05/2024 Time: 00:32 Bed 3 Private MD: ED Physician Ren Morel HPI: 09/05 03:35 This 84 yrs old Male presents to ER via EMS with complaints of Altered Mental Status. rt 03:35 Patient woke up tonight shaking, patient's reported that he is had intermittent rt episodes of altered mental status. Denies any altered mental status currently. States that he feels better. Denies other acute complaints at this time, symptoms are moderate in severity, no other aggravating alleviating factors.. Historical: - Allergies: 00:45 Baclofen; al5 - PMHx: 00:45 Atrial Fib; bowel obstruction; High Cholesterol; Hypertension; al5 - PSHx: 00:45 mitral valve replacement; al5 - Immunization history:: Adult Immunizations up to date. - Infectious Disease History:: Denies. - Social history:: Smoking status: Patient denies any tobacco usage or history of. - Family history:: not pertinent. ROS: 03:35 Cardiovascular: Negative for chest pain, palpitations, and edema, Respiratory: Negative rt for shortness of breath, cough, wheezing, and pleuritic chest pain, Abdomen/GI: Negative for abdominal pain, nausea, vomiting, diarrhea, and constipation, Skin: Negative for injury, rash, and discoloration, 03:35 Constitutional: Positive for chills, 03:35 Neuro: Positive for altered mental status, Exam: 03:35 Constitutional: This is a well developed, well nourished patient who is awake, alert, rt and in no acute distress. Head/Face: Normocephalic, atraumatic. Chest/axilla: Normal chest wall appearance and motion. Nontender with no deformity. No lesions are appreciated. Cardiovascular: Regular rate and rhythm with a normal S1 and S2. No gallops, murmurs, or rubs. Normal PMI, no JVD. No pulse deficits. Respiratory: Lungs have equal breath sounds bilaterally, clear to auscultation and percussion. No rales, rhonchi or wheezes noted. No increased work of breathing, no retractions or nasal flaring. Abdomen/GI: Soft, non-tender, with normal bowel sounds. No distension or tympany. No guarding or rebound. No evidence of tenderness throughout. Skin: Warm, dry with normal turgor. Normal color with no rashes, no lesions, and no evidence of cellulitis. MS/ Extremity: Pulses equal, no cyanosis. Neurovascular intact. Full, normal range of motion. Neuro: Awake and alert, GCS 15, oriented to person, place, time, and situation. Cranial nerves II-XII grossly intact. Motor strength 5/5 in all extremities. Sensory grossly intact. Cerebellar exam normal. Normal gait. 03:35 ECG was reviewed by the Attending Physician. Vital Signs: 00:42 BP 155 / 106; Pulse 76; Resp 19; Temp 99; Pulse Ox 96% on R/A; Weight 90.72 kg; Height al5 5 ft. 6 in. ; 01:00 BP 133 / 62; Pulse 70; Resp 18; Pulse Ox 95% ; al5 01:30 BP 130 / 86; Pulse 68; Resp 19; Pulse Ox 96% ; al5 02:00 BP 121 / 80; Pulse 67; Resp 19; Pulse Ox 96% ; al5 03:00 BP 140 / 76; Pulse 62; Resp 18; Pulse Ox 97% on R/A; hm5 03:30 BP 155 / 88; Pulse 63; Resp 19; Pulse Ox 96% ; al5 04:00 BP 133 / 77; Pulse 60; Resp 19; Pulse Ox 96% ; al5 00:42 Body Mass Index 32.28 (90.72 kg, 167.64 cm) al5 MDM: 00:38 Medical Screening Exam initiated rt 03:35 Differential Diagnosis: volume depletion, Pneumonia, UTI, dysrhythmia. Data reviewed: rt vital signs, nurses notes, lab test result(s), EKG, radiologic studies. Consideration of Admission/Observation Patient was admitted/placed on observation. Management of patient was discussed with the following: Hospitalist: Agrees to admit. I considered the following discharge prescriptions or medication management in the emergency department Medications were administered in the Emergency Department. See MAR. Independent interpretation of the following test(s) in the Emergency Department X-Ray: My interpretation is Infiltrate seen on interpretation of x-ray images. Care significantly affected by the following chronic conditions: Hypertension. Counseling: I had a detailed discussion with the patient and/or guardian regarding the historical points, exam findings, and any diagnostic results supporting the discharge/admit diagnosis, lab results, radiology results, the need for further work-up and treatment in the hospital. Response to treatment: the patient's symptoms have markedly improved after treatment. 09/05 00:40 Order name: Blood Culture Adult (2) rt 09/05 00:40 Order name: CBC with Diff; Complete Time: 02:44 rt 09/05 00:40 Order name: CMP; Complete Time: 02:44 rt 09/05 00:40 Order name: Lactate w/ 2H reflex if indic.; Complete Time: 02:44 rt 09/05 00:40 Order name: Protime (+inr); Complete Time: 02:44 rt 09/05 00:40 Order name: Ptt, Activated; Complete Time: 02:44 rt 09/05 00:40 Order name: UA Rfx Antonio Cult if indicated rt 09/05 00:40 Order name: Troponin High Sensitivity; Complete Time: 02:44 rt 09/05 03:59 Order name: CBC with Automated Diff EDMS 09/05 03:59 Order name: CBC with Automated Diff EDMS 09/05 03:59 Order name: Comprehensive Metabolic Panel EDMS 09/05 03:59 Order name: Comprehensive Metabolic Panel EDMS 09/05 00:40 Order name: Chest Single View XRAY; Complete Time: 02:44 rt 09/05 00:40 Order name: CT Head Brain wo Cont; Complete Time: 04:48 rt 09/05 12:55 Order name: RAD EDMS 09/05 00:40 Order name: Cardiac monitoring; Complete Time: 01:01 rt 09/05 00:40 Order name: EKG - Nurse/Tech; Complete Time: 01:01 rt 09/05 00:40 Order name: IV Saline Lock - Large Bore; Complete Time: 00:52 rt 09/05 00:40 Order name: Labs collected and sent; Complete Time: 00:52 rt 09/05 00:40 Order name: O2 Per Protocol; Complete Time: 00:52 rt 09/05 00:40 Order name: O2 Sat Monitoring; Complete Time: 00:52 rt 09/05 00:40 Order name: Vital Signs; Complete Time: 00:52 rt EC:35 Rate is 76 beats/min. Rhythm is regular, 1st Degree Block with Unifocal PVCs. QRS [place] rt is Normal. NC interval is normal. QRS interval is normal. QT interval is normal. No Q waves. No ST changes noted. Interpreted by me. Administered Medications: 03:30 Drug: Rocephin IV 2 grams IV at calculated rate once; Given slow IV push per pharmarcy hm5 instructions Route: IV; Rate: calculated rate; Site: right forearm; 04:04 Follow up: Response: No adverse reaction; IV Status: Completed infusion; IV Intake: [id number] 04:03 Drug: AZITHromycin IVPB 500 mg IVPB once over 1 hrs; (mix in 250 mL NS) Route: IVPB; al5 Infused Over: 1 hrs; Site: right forearm; 04:59 Follow up: IV Status: Completed infusion; IV Intake: 250ml hm5 Disposition Summary: 09/05/24 03:50 Hospitalization Ordered Notes: Hospitalization Status: Inpatient Admission rt Provider: Sriram Anders rt Condition: Stable rt Problem: new rt Symptoms: have improved rt Bed/Room Type: Standard rt Location: Telemetry/MedSurg (Inpatient)(09/05/24 15:31) bd Room Assignment: 230(09/05/24 15:31) bd Diagnosis - Altered mental status, unspecified rt - Pneumonia, unspecified organism rt Forms: - Medication Reconciliation Form rt - SBAR form rt - Leadership Thank You Letter rt Signatures: Dispatcher [employer] EDChioma Foy Cindy, RN RN cg [place], Ryan, MD MD rt Karo Cross RN RN pr5 Michelle Gonzalez RN RN 5 Corrections: (The following items were deleted from the chart) 00:40 00:40 BLOOD CULTURE*+BA.LAB.BRZ ordered. EDMS EDMS 00:40 00:40 CBC+H.LAB.BRZ ordered. EDMS EDMS 00:40 00:40 COMPREHENSIVE METABOLIC PANEL+C.LAB.BRZ ordered. EDMS EDMS 00:40 00:40 LACTATE+C.LAB.BRZ ordered. EDMS EDMS 00:40 00:40 PROTIME (+INR)+COAG.LAB.BRZ ordered. EDMT EDMS 00:40 00:40 PTT, ACTIVATED+COAG.LAB.BRZ ordered. EDMS EDMS 00:40 00:40 UA Rfx Antonio Cult if indicated+U.LAB.BRZ ordered. EDMS EDMS 00:40 00:40 Troponin High Sensitivity+C.LAB.BRZ ordered. EDMS EDMS 00:40 00:40 Chest Single View+RAD.RAD.BRZ ordered. EDMS EDMS 00:41 00:41 Head Brain Wo Cont+CT.RAD.BRZ ordered. EDMS EDMS 00:52 00:40 Accucheck ordered. rt al5 04:45 03:50 Telemetry/MedSurg (Inpatient) rt cg 04:45 03:50 rt cg 15:31 04:45 [facility] ER HOLD cg bd 15:31 04:45 ERHOLD- cg bd
[2024-09-05] MEDS ORDERED: IPRATROPIUM BROM 0.5MG/2.5ML NEB PRN (03:53)
[2024-09-05] MEDS ORDERED: ONDANSETRON 4 MG/2 ML VIAL IV PRN (03:53)
[2024-09-05] MEDS ORDERED: ALBUTEROL 2.5 MG/3 ML NEB SOL NEB PRN ×2 (03:53→11:40)
[2024-09-05] MEDS ORDERED: ACETAMINOPHEN 325 MG TABLET PO PRN (03:53)
[2024-09-05] MEDS ORDERED: AZITHROMYCIN IV 500 MG in NA CHLORIDE 0.9% 250 ML IVPB SCH (03:57)
[2024-09-05] MEDS ORDERED: CEFTRIAXONE 1,000 MG in NA CHLORIDE 0.9% 50 ML IVPB SCH (03:58)
--- NOTE | 2024-09-05 03:59 | P.HP ---
Certification for Inpatient Patient admitted to: Inpatient With expected LOS: >2 Midnights Practitioner: I am a practitioner with admitting privileges, knowledge of patient current condition, hospital course, and medical plan of care. Services: Services provided to patient in accordance with Admission requirements found in Title 42 Section 412.3 of the Code of Federal Regulations Patient History Date of Service: 09/05/24 Reason for admission: Pneumonia History of Present Illness: 84 yrs old Male with past medical history of atrial fibrillation, hypertension, hyperlipidemia, history of mitral valve replacement, CAD came to ER with fever chills and intermittent altered mentation. Patient is a poor historian hence most of the history is obtained from chart review and also talking to the ER physician. Patient woke up tonight shaking, and has had intermittent episodes of altered mental status. Denies any chest pain or shortness of breath. No nausea vomiting or diarrhea. No sick contacts. Patient was assessed in the ER and was admitted for further management of pneumonia Allergies baclofen Allergy (Mild, Verified 11/17/23 08:23) Shortness of breath Home medications list reviewed: Yes Home Medications: Aspirin [Aspirin EC 325 MG] 325 mg PO DAILY 04/17/20 Ubidecarenone [Co Q-10] 100 mg PO DAILY 04/17/20 Apixaban [Eliquis *] 2.5 mg PO BID #60 tablet 04/19/20 Cyanocobalamin [Vitamin B-12*] 1,000 mcg PO DAILY 02/15/23 Donepezil HCl [Aricept] 10 mg PO DAILY 02/15/23 Gabapentin 600 mg PO BEDTIME 02/15/23 Memantine HCl 10 mg PO DAILY 02/15/23 Rosuvastatin [Crestor*] 10 mg PO DAILY 02/15/23 Carbidopa/Levodopa [Carbidopa-Levo ER 25-100 Tab] 25 - 100 mg PO BID 11/17/23 Metoprolol Tartrate [Lopressor*] 12.5 mg PO DAILY 11/17/23 Sotalol HCl [Sotalol AF] 80 mg PO BID 11/17/23 - Past Medical/Surgical History Diabetic: No Past Medical History: Reviewed- Non-Contributory -: cad, htn, sleep apnea, back pain, ruptured disc, reflux -: A fib -: HTN -: HLD -: CAD Past Surgical History: Reviewed- Non-Contributory -: r shoulder prosthesis -: heart stent -: bowel resection x2 Psychosocial/ Personal History: 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 , 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 - Family History Family History: Reviewed- Non-Contributory - Social History Smoking Status: Never smoker Alcohol use: Yes CD- Drugs: No Caffeine use: Yes Review of Systems 10-point ROS is otherwise unremarkable Physical Examination - Vital Signs Temperature: 98.8 F Blood Pressure: 136/72 Pulse: 78 Respirations: 18 Pulse Ox (%): 94 - Physical Exam General: Alert, Cooperative, Mild distress HEENT: Atraumatic, Normocephalic Neck: Supple, No Thyromegaly Respiratory: Clear to auscultation bilaterally, Crackles/rales Cardiovascular: Regular rate/rhythm, Normal S1 S2 Capillary refill: <2 Seconds Gastrointestinal: Soft and benign, W/out hepatosplenomegaly Musculoskeletal: No clubbing, No swelling Integumentary: No rashes Neurological: Other (Alert awake nonfocal) Lymphatics: No axilla or inguinal lymphadenopathy - Studies Laboratory Data (last 24 hrs) 09/05/24 09/05/24 09/05/24 00:53 00:53 00:53 WBC 14.30 H Hgb 12.5 L Hct 36.9 L Plt Count 132 L PT 20.8 H INR 1.88 APTT 40.4 H Sodium 142 Potassium 4.4 BUN 25 H Creatinine 1.62 H Glucose 131 H Total Bilirubin 1.1 H AST 12 L ALT < 14 L Alkaline Phosphatase 154 H Assessment and Plan - Plan Left lower lobe pneumonia Leukocytosis Started on IV antibiotic Obtain cultures Change antibiotic as per sensitivity Monitor CBC in a.m. Acute encephalopathy metabolic CT head was negative Confusion is better at the time of interview Monitor neuro vital signs closely Hypertension Antihypertensives titrated Continue home medications and titrate as needed Hyperlipidemia Continue statin TREMAYNE Monitor renal parameters Electrolytes monitor and replace accordingly History of atrial fibrillation History of CAD History of mitral valve Replacement Continue home medications and titrate as needed GI/DVT prophylaxis Advanced directive full code Discharge Plan: Home Plan to discharge in: 48 Hours - Advance Directives Does patient have a Living Will: No Does patient have a Durable POA for Healthcare: No - Code Status/Comfort Care Code Status: Full Code Time Spent Managing Pts Care (In Minutes): 48
[2024-09-05] MEDS: CEFTRIAXONE 1,000 MG in NA CHLORIDE 0.9% 50 ML IVPB SCH (04:00)
[2024-09-05] MEDS: AZITHROMYCIN IV 500 MG in NA CHLORIDE 0.9% 250 ML IVPB SCH (04:00)
[2024-09-05 04:58] LABS: Specific Gravity 1.024 (1.005-1.030); Urine Bilirubin NEGATIVE (Negative); Urine Blood 1+ (Negative); Urine Clarity Clear (Clear); Urine Color Yellow (Yellow); Urine Glucose NEGATIVE (Negative); Urine Ketones 1+ (Negative); Urine Microscopic Reflex YN NO UMIC; Urine Nitrite NEGATIVE (Negative); Urine Protein TRACE (Negative); Urine Urobilinogen Normal (Normal); Urine pH 5.5 (5.0-7.0)
[2024-09-05] MEDS: ENOXAPARIN 40 MG/0.4 ML SQ SCH (08:35)
--- NOTE | 2024-09-05 10:03 | P.CNS ---
Date of Consult: 09/05/24 Reason for Consult: TREMAYNE/ CKD Requesting Physician: verenice fisher Chief Complaint: Pneumonia History of Present Illness: 84 yrs old Male with past medical history of atrial fibrillation, hypertension, hyperlipidemia, history of mitral valve replacement, CAD came to ER with fever chills and intermittent altered mentation. Patient is a poor historian hence most of the history is obtained from chart review and also talking to the ER physician. Patient woke up tonight shaking, and has had intermittent episodes of altered mental status. Denies any chest pain or shortness of breath. No nausea vomiting or diarrhea. No sick contacts. Patient was assessed in the ER and was admitted for further management of pneumonia 03:35 This 84 yrs old Male presents to ER via EMS with complaints of Altered Mental Status. rt 03:35 Patient woke up tonight shaking, patient's reported that he is had intermittent rt episodes of altered mental status. Denies any altered mental status currently. States that he feels better. Denies other acute complaints at this time, symptoms are moderate in severity, no other aggravating alleviating factors.. Allergies baclofen Allergy (Mild, Verified 11/17/23 08:23) Shortness of breath Home medications list reviewed: Yes Home Medications: Aspirin [Aspirin EC 325 MG] 325 mg PO DAILY 04/17/20 Ubidecarenone [Co Q-10] 100 mg PO DAILY 04/17/20 Apixaban [Eliquis *] 2.5 mg PO BID #60 tablet 04/19/20 Cyanocobalamin [Vitamin B-12*] 1,000 mcg PO DAILY 02/15/23 Donepezil HCl [Aricept] 10 mg PO DAILY 02/15/23 Gabapentin 600 mg PO BEDTIME 02/15/23 Memantine HCl 10 mg PO DAILY 02/15/23 Rosuvastatin [Crestor*] 10 mg PO DAILY 02/15/23 Carbidopa/Levodopa [Carbidopa-Levo ER 25-100 Tab] 25 - 100 mg PO BID 11/17/23 Metoprolol Tartrate [Lopressor*] 12.5 mg PO DAILY 11/17/23 Sotalol HCl [Sotalol AF] 80 mg PO BID 11/17/23 - Past Medical/Surgical History Diabetic: No -: sleep apnea, back pain, ruptured disc, reflux -: Afib -: HTN -: HLD -: CAD -: CKD (Dr. 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 History Smoking Status: Unknown if ever smoked Alcohol use: Yes CD- Drugs: No Caffeine use: Yes Place of Residence: Home Review of Systems 10-point ROS is otherwise unremarkable General: Weakness, Malaise Respiratory: SOB with Excertion Musculoskeletal: Arm Pain Physical Examination Temp Pulse Resp BP Pulse Ox 97.8 F 57 14 135/76 96 09/05/24 07:41 09/05/24 07:41 09/05/24 07:41 09/05/24 07:41 09/05/24 07:41 General: Cooperative, Mild distress HEENT: Atraumatic Neck: Supple Respiratory: Normal air movement Cardiovascular: No edema, Regular rate/rhythm Gastrointestinal: Soft and benign, Non-distended Musculoskeletal: No clubbing, No contractures Integumentary: No rashes, No cyanosis Neurological: Normal speech Laboratory Data (last 24 hrs) 09/05/24 09/05/24 09/05/24 00:53 00:53 00:53 WBC 14.30 H Hgb 12.5 L Hct 36.9 L Plt Count 132 L PT 20.8 H INR 1.88 APTT 40.4 H Sodium 142 Potassium 4.4 BUN 25 H Creatinine 1.62 H Glucose 131 H Total Bilirubin 1.1 H AST 12 L ALT < 14 L Alkaline Phosphatase 154 H Imagings Data: EXAM: XR Chest, 1 View CLINICAL HISTORY: The patient is 84 years old and is Male; rigors TECHNIQUE: Frontal view of the chest. COMPARISON: No relevant prior studies available. FINDINGS: Lungs: See below. Pleural space: Left hemidiaphragm is somewhat obscured which can be seen with left pleural effusion, as well as left lower lobe consolidation or atelectasis. No pneumothorax. Heart: Unremarkable. Mediastinum: Unremarkable. Normal mediastinal contour. Bones/joints: No acute findings. IMPRESSION: Left hemidiaphragm is somewhat obscured which can be seen with left pleural effusion, as well as left lower lobe consolidation or atelectasis. Conclusions/Impression: Stage I TREMAYNE may be due to hypovolemia CKD II with Proteinuria -No NSAIDs HTN with CKD Paroxysmal Afib Hx AVR Apr 2024 -Continue Sotalol Anemia in chronic illness Thrombocytopenia -Monitor CBC Lobar PNA -Continue Abx Hospitalist and ER notes reviewed Case reviewed with Dr. Fisher Thank you kindly for the consultation
[2024-09-05] MEDS: SOTALOL HCL 80 MG TAB PO SCH (11:27)
[2024-09-05] MEDS ORDERED: SOLIFENACIN SUCCIN 5 MG TAB PO SCH (11:32)
[2024-09-05] MEDS: HYDROCODONE/APAP 5/325 MG TAB PO PRN (12:00)
[2024-09-05] MEDS ORDERED: HYDROCODONE/APAP 5/325 MG TAB ONE (12:06)
--- NOTE | 2024-09-05 12:55 | RAD REPORT ---
EXAMINATION: Forearm Right VIEWS: Two views CLINICAL INDICATION: Male, 84 years old. pain COMPARISON: No prior exam. IMPRESSION: No acute fracture. AP view limited by positioning. Peripheral vascular calcifications. No radiopaque foreign body.
[2024-09-05] MEDS: CARBIDOPA/LEVODOPA 25/100 TAB PO SCH (13:00)
--- NOTE | 2024-09-05 16:43 | EKG ---
Test Date: 2024-09-05 Test Time: 00:39:50 [place] Winder: ROSHNI MEASUREMENT RESULTS: Intervals: Rate: 76 [place]: 220 QRSD: 100 QT: 462 QTc: 519 [place]: P: 75 [place]: 220 QRS: 24 T: 86 INTERPRETIVE STATEMENTS: Sinus rhythm with 1st degree AV block with frequent premature ventricular complexes Nonspecific T wave abnormality Abnormal ECG Compared to ECG 11/17/2023 12:01:03 Ventricular premature complex(es) now present Sinus bradycardia no longer present Possible ischemia no longer present T-wave abnormality still present Electronically Signed On 09-05-24 16:43:10 CDT by Yusuf Becerril
--- NOTE | 2024-09-05 17:48 | P.PN ---
Date of Service: 09/05/24 Patient seen and examined. Patient appears awake, oriented x 3. He is complaining of pain in his right elbow. He has been afebrile. UA is negative. Chest x-ray suggest possible left-sided pneumonia. Plan: Right elbow x-ray done and shows no fracture or effusion. Continue IV Rocephin and Zithromax Nephrology consulted for TREMAYNE Follow cultures Monitor renal function and CBC. Diet as tolerated. PT consult. Hold antihypertensives for now Resume other home medications.
[2024-09-05] MEDS: APIXABAN 2.5 MG TABLET PO SCH (21:00)
[2024-09-05] MEDS: DONEPEZIL HCL 5 MG TAB PO SCH (21:28)
[2024-09-05] MEDS: EZETIMIBE 10 MG TAB PO SCH (21:29)
[2024-09-06] MEDS: MELATONIN 5 MG TABLET PO PRN (01:41)
[2024-09-06 04:44] LABS: Absolute Eosinophils 0.1 K/uL (0-0.5); Absolute Lymphocytes (CBC) 2.9 K/uL (0.7-4.9); Absolute Monocytes 1.2 K/uL (0.1-1.3); Absolute Neutrophil 6.3 K/uL (1.8-8.0); Basophils % 0.4 % (0-1.3); Eosinophils % 1.3 % (0-4.4); Hematocrit 34.7 % (39.6-49.0); Hemoglobin 11.7 g/dL (13.6-17.9); Lymphocytes % 27.3 % (15.3-44.8); MCH 29.6 pg (27.0-35.0); MCHC 33.9 g/dL (32.0-36.0); MCV 87.4 fL (80-100); MPV 8.3 fL (7.6-11.3); Monocytes % 11.7 % (3.3-12.3); Neutrophils % 59.3 % (41.7-73.7); Platelets 126 thou/uL (152-406); RBC Red Blood Cell Count 3.97 M/uL (4.33-5.43); Red Cell Distribution Width 15.2 % (12.1-15.2)
[2024-09-06 05:08] LABS: AST/SGOT 34 U/L (15-37); Albumin 2.9 g/dL (3.4-5.0); Albumin/Globulin Ratio 0.8 (1.1-1.8); Alkaline Phosphatase 153 U/L (45-117); Anion Gap 9.1 mEq/L (5.0-15.0); BUN Blood Urea Nitrogen 31 mg/dL (7-18); Bicarbonate 25 mEq/L (21-32); Bilirubin Total 0.6 mg/dL (0.2-1.0); Globulin 3.7 g/dL (2.3-3.5); Glomerular Filtration Rate 50 ml/min (=/>90); Glucose Level 98 mg/dL (74-106); Potassium 4.1 mEq/L (3.5-5.1); Protein, Total 6.6 g/dL (6.4-8.2); Sodium Level 140 mEq/L (136-145)
[2024-09-06 05:20] LABS: ALT/SGPT < 14 U/L (16-61)
[2024-09-06] MEDS: CYANOCOBALAMIN 1,000 MCG TAB PO SCH (08:09)
[2024-09-06] MEDS: CLOPIDOGREL 75 MG TABLET PO SCH (08:09)
[2024-09-06] MEDS: OXYBUTYNIN ER 5 MG TAB PO SCH (08:09)
[2024-09-06] MEDS: MEMANTINE HCL 10 MG TABLET PO SCH (08:09)
[2024-09-06] MEDS: ANASTROZOLE 1 MG TAB PO SCH (08:10)
[2024-09-06] MEDS: ROSUVASTATIN 10 MG TAB PO SCH (08:15)
[2024-09-06] MEDS ORDERED: HOME MED 1 EA UNK (Memantine Hcl [Memantine Hcl] 5 MG Tablet) PO SCH (09:00)
[2024-09-06] MEDS ORDERED: OXYBUTYNIN ER 5 MG TAB PO SCH (09:00)
[2024-09-06] MEDS ORDERED: HOME MED 1 EA UNK (Donepezil Hcl [Aricept] 10 MG Tablet) PO SCH (09:00)
[2024-09-06] MEDS ORDERED: ROSUVASTATIN 10 MG TAB PO SCH (09:00)
--- NOTE | 2024-09-06 09:16 | P.PN ---
Date of Service: 09/06/24 Subjective: urine is very dark, started last night - bloody per family more awake/alert compared to admission reports right hand /wrist pain Recently started on Anastrozole ~this past by their urologist Symptoms started ~1 day later - general malaise / decreased appetite, then some confusion Physical Exam: GEN: Alert, oriented, NAD CV: Regular rate and rhythm, trace edema Pulm: Nonlabored respirations on room air, clear bilaterally ABD: soft, nontender, nondistended MSK: Right hand tenderness with mild erythema wrist/knuckle Neuro: moves all extremities Problem List: Acute metabolic encephalopathy, unknown etiology Possible Pneumonia Hematuria Hx Aortic valve replacement (Apr 2024) TREMAYNE Hx Atrial Fibrillation Hx CAD Hypertension Hyperlipidemia GERD Acute metabolic encephalopathy, unknown etiology Possible Pneumonia Unclear exact etiology On admission, presents with intermittent confusion, chills, R forearm pain. Unsure if medication is playing a role. Family did report recently being started on Anastrozole this past by their urologist (~1 day prior to symptoms) CT head and Forearm xray both negative for any acute findings. Chest xray suggestive of possible left-sided pneumonia vs pleural effusion vs atelectasis Given Rocephin/Azithromycin in ED Given the uncertaintly, continue IV Rocephin for now (09/05-); dc azithro given afib history Blood cx (09/05): NGTD Afebrile since arrival, leukocytosis resolved 09/06 family deny any recent change in respiratory status / symptoms Hematuria Hx Aortic valve replacement (Apr 2024) Family in room report hematuria started sometime last night. Urine is very dark Recently underwent Aortic valve replacement in Apr 2024 on eliquis/plavix at home Cardiology and Urology consulted for further recs sees Dr. Antonio - recently seen ~2-3 weeks ago for UTI, completed abx treatment s/p 1st dose of Anastrozole last hold eliquis for now Monitor Hgb TREMAYNE Continue to monitor renal function Monitor and replete electrolytes as needed Renal function improving Daily labs Hx Atrial Fibrillation Hx CAD Hypertension Hyperlipidemia confirm home meds, restart as appropriate resume home carbidopa/levodopa, donepezil, ezetimbe, memantine, statin, sotalol VTE: home eliquis Code: Full Dispo: Home, possibly with HH, ~2 days Time Spent Managing Pts Care (In Minutes): 55
--- NOTE | 2024-09-06 21:50 | P.PN ---
Date of Service: 09/06/24 Vital Signs Temp Pulse Resp BP Pulse Ox 97.5 F 54 20 146/66 H 95 09/06/24 12:00 09/06/24 12:00 09/06/24 12:00 09/06/24 12:00 09/06/24 12:00 Medications Acetaminophen (Acetaminophen 325 Mg Tablet) 650 mg PO Q4HP PRN PRN Reason: Pain scale 2-4 (Mild) Hydrocodone Bitart/Acetaminophen (Hydrocodone/Apap 5/325 Mg Tab) 1 tab PO Q4H PRN PRN Reason: Pain scale 5-7 (Moderate) Last Admin: 09/06/24 21:08 Dose: 1 tab Albuterol Sulfate (Albuterol 2.5 Mg/3 Ml Neb Veronica) 2.5 mg NEB [id number] PRN PRN Reason: SHORTNESS OF BREATH Anastrozole (Anastrozole 1 Mg Tab) 1 mg PO DAILY YOSI Stop: 10/04/24 09:01 Last Admin: 09/06/24 08:10 Dose: 1 mg Carbidopa/Levodopa (Carbidopa/Levodopa 25/100 Tab) 1 tab PO Q4HR YOSI Last Admin: 09/06/24 20:47 Dose: 1 tab Clopidogrel Bisulfate (Clopidogrel 75 Mg Tablet) 75 mg PO DAILY YOSI Last Admin: 09/06/24 08:09 Dose: 75 mg Cyanocobalamin (Cyanocobalamin 1,000 Mcg Tab) 1,000 mcg PO DAILY YOSI Last Admin: 09/06/24 08:09 Dose: 1,000 mcg Donepezil HCl (Donepezil Hcl 5 Mg Tab) 10 mg PO BEDTIME YOSI Last Admin: 09/06/24 20:48 Dose: 10 mg Ezetimibe (Ezetimibe 10 Mg Tab) 10 mg PO BEDTIME YOSI Last Admin: 09/06/24 20:47 Dose: 10 mg Ceftriaxone Sodium 1,000 mg/ (Sodium Chloride) 50 mls @ 100 mls/hr IVPB DAILY YOSI; Protocol Last Admin: 09/06/24 04:46 Dose: 50 mls Ipratropium [place] (Ipratropium Brom 0.5mg/2.5ml) 0.5 mg NEB [id number] PRN PRN Reason: SHORTNESS OF BREATH Melatonin (Melatonin 5 Mg Tablet) 5 mg PO BEDTIME PRN PRN PRN Reason: INSOMNIA Last Admin: 09/06/24 01:41 Dose: 5 mg Memantine (Memantine Hcl 10 Mg Tablet) 10 mg PO DAILY [facility] Last Admin: 09/06/24 08:09 Dose: 10 mg Ondansetron HCl (Ondansetron 4 Mg/2 Ml Vial) 4 mg IV Q6HP PRN PRN Reason: NAUSEA / VOMITING Oxybutynin Chloride (Oxybutynin Er 5 Mg Tab) 15 mg PO DAILY [facility] Last Admin: 09/06/24 08:09 Dose: 15 mg Rosuvastatin Calcium (Rosuvastatin 10 Mg Tab) 10 mg PO DAILY [facility] Last Admin: 09/06/24 08:15 Dose: 10 mg Sotalol HCl (Sotalol Hcl 80 Mg Tab) 80 mg PO BID [facility] Last Admin: 09/06/24 20:47 Dose: 80 mg Microbiology Results 09/05/24 00:45 Blood - Blood Aerobic Blood Culture - Preliminary No growth in 24 hours. 09/05/24 00:45 Blood - Blood Anaerobic Blood Culture - Preliminary No growth in 24 hours. 09/05/24 00:53 Blood - Blood Aerobic Blood Culture - Preliminary No growth in 24 hours. 09/05/24 00:53 Blood - Blood Anaerobic Blood Culture - Preliminary No growth in 24 hours. Assessment/ Plan: Nephrology No dyspnea No chest pain Right wrist pain No acute events overnight Vitals, medications, blood work and imaging reviewed in the chart General: Cooperative, Mild distress HEENT: Atraumatic Neck: Supple Respiratory: Normal air movement Cardiovascular: No edema, Regular rate/rhythm Gastrointestinal: Soft and benign, Non-distended Musculoskeletal: No clubbing, No contractures Integumentary: No rashes, No cyanosis Neurological: Normal speech Laboratory Data (last 24 hrs) 09/05/24 09/05/24 09/05/24 00:53 00:53 00:53 WBC 14.30 H Hgb 12.5 L Hct 36.9 L Plt Count 132 L PT 20.8 H INR 1.88 APTT 40.4 H Sodium 142 Potassium 4.4 BUN 25 H Creatinine 1.62 H Glucose 131 H Total Bilirubin 1.1 H AST 12 L ALT < 14 L Alkaline Phosphatase 154 H Imagings Data: EXAM: XR Chest, 1 View CLINICAL HISTORY: The patient is 84 years old and is Male; rigors TECHNIQUE: Frontal view of the chest. COMPARISON: No relevant prior studies available. FINDINGS: Lungs: See below. Pleural space: Left hemidiaphragm is somewhat obscured which can be seen with left pleural effusion, as well as left lower lobe consolidation or atelectasis. No pneumothorax. Heart: Unremarkable. Mediastinum: Unremarkable. Normal mediastinal contour. Bones/joints: No acute findings. IMPRESSION: Left hemidiaphragm is somewhat obscured which can be seen with left pleural effusion, as well as left lower lobe consolidation or atelectasis. Conclusions/Impression: Stage I TREMAYNE may be due to hypovolemia CKD II with Proteinuria -No NSAIDs HTN with CKD Paroxysmal Afib Hx AVR Apr 2024 -Continue Sotalol Anemia in chronic illness Thrombocytopenia -Monitor CBC Lobar PNA -Continue Abx Hospitalist note reviewed
[2024-09-06] MEDS: LIDOCAINE 4% PATCH TOP SCH (22:30)
[2024-09-06] MEDS: MIDAZOLAM HCL 2 MG/2 ML INJ ONE (22:57)
[2024-09-06] MEDS: AMIODARONE HCL 150 MG in D5W 100 ML IV STA (23:35)
[2024-09-06] MEDS: MIDAZOLAM HCL 2 MG/2 ML INJ IV ONE (23:36)
[2024-09-06] MEDS: AMIODARONE IN DEXTROSE,ISO-OSM 360 MG/200 ML BAG IV ONE (23:53)
[2024-09-06] MEDS: propofoL 1,000 MG/100 ML VIAL IV SCH (23:55)
[2024-09-07] MEDS: AMIODARONE HCL 450 MG in D5W 241 ML IV SCH (00:08)
[2024-09-07 00:10] VITALS: O2SAT 100
[2024-09-07 00:42] LABS: Arterial Blood Carboxyhemoglob 0.7 % (0-1.5); Blood Gas THB 13.3 g/dl (12-18); Blood O2 Saturation 98.6 % (92-98.5)
[2024-09-07 01:44] LABS: Absolute Eosinophils 0.1 K/uL (0-0.5); Absolute Lymphocytes (CBC) 1.7 K/uL (0.7-4.9); Absolute Neutrophil 8.4 K/uL (1.8-8.0); Basophils % 0.3 % (0-1.3); Eosinophils % 0.8 % (0-4.4); Hematocrit 33.5 % (39.6-49.0); Hemoglobin 11.4 g/dL (13.6-17.9); Lymphocytes % 15.3 % (15.3-44.8); MCH 29.3 pg (27.0-35.0); MCHC 33.9 g/dL (32.0-36.0); MCV 86.4 fL (80-100); MPV 8.1 fL (7.6-11.3); Monocytes % 8.8 % (3.3-12.3); Neutrophils % 74.8 % (41.7-73.7); Platelets 145 thou/uL (152-406); RBC Red Blood Cell Count 3.88 M/uL (4.33-5.43)
[2024-09-07 01:54] LABS: AST/SGOT 44 U/L (15-37); Albumin 2.7 g/dL (3.4-5.0); Albumin/Globulin Ratio 0.7 (1.1-1.8); Alkaline Phosphatase 176 U/L (45-117); Anion Gap 9.8 mEq/L (5.0-15.0); BUN Blood Urea Nitrogen 30 mg/dL (7-18); Bicarbonate 24 mEq/L (21-32); Bilirubin Total 0.8 mg/dL (0.2-1.0); Globulin 3.7 g/dL (2.3-3.5); Glomerular Filtration Rate 45 ml/min (=/>90); Glucose Level 163 mg/dL (74-106); Magnesium 1.9 mg/dL (1.6-2.4); NT PRO-BNP 4324 pg/mL (<450); Phosphorus 2.5 mg/dL (2.5-4.9); Potassium 3.8 mEq/L (3.5-5.1); Protein, Total 6.4 g/dL (6.4-8.2); Sodium Level 139 mEq/L (136-145)
[2024-09-07 02:08] VITALS: BMI 31.6
[2024-09-07 02:35] LABS: ALT/SGPT < 14 U/L (16-61)
[2024-09-07 02:37] LABS: Troponin High Sensitivity 3033.2 pg/mL (<58.9)
--- NOTE | 2024-09-07 02:49 | RAD REPORT ---
EXAM DESCRIPTION: X-ray single view chest. CLINICAL HISTORY: 84 years Male, S/p Intubation, CENTRAL LINE , OGT COMPARISON: 09/05/2024 and 02/15/2023 TECHNIQUE: Single portable x-ray view of the chest performed on 09/07/2024 at 12:49 AM FINDINGS: Lungs are hypoinflated and are grossly clear. No definite focal airspace consolidation is identified. There is no evidence of a pneumothorax. The cardiac silhouette is stable and is mildly prominent. The mediastinal contours are normal. No acute osseous abnormality is identified. There are remote postsurgical changes of the shoulders co nsistent with partially imaged bilateral shoulder arthroplasties. No focal soft tissue abnormalities are seen. The visualized bowel gas pattern is nonspecific and nono bstructive. Lines and tubes: The endotracheal tube appears to terminate approximately 2 cm above the [place]. Th e feeding tube terminates in the left upper quadrant in the region just below the GE junction. The right IJ central venous catheter tip terminates in the region of the superior vena cava. There are mu ltiple overlying bus driver/monitor leads. A defibrillator pad projects over the central chest and left upper quadrant. Free air: None identified, IMPRESSION: 1. Hypoinflation of the lungs. 2. Grossly stable prominence of the cardiac silhouette. 3. Life support lines and tubes present as described above. The tip of the feeding tube terminates in the left upper quadrant in the region just below the GE junction. Electronically signed by: Sonya Cantor DO 09/07/2024 01:25 AM [facility] Due to temporary technical issues with the PACS/FanLib reporting system, reports are being ynes d by the in-house radiologist without review as a courtesy to ensure prompt reporting the interpreting radiologist is fully responsible for the content of the report. Transcribed Date/Time: 09/07/2024 2:49 AM
[2024-09-07] MEDS ORDERED: POTASSIUM PHOS IN 0.9 % NACL 15 MMOL/250 ML BAG IV ONE ×2 (03:00→09:00)
--- NOTE | 2024-09-07 04:07 | P.PN ---
Date of Service: 09/07/24 Patient had a CODE BLUE. Patient developed V. tach with arrest started CPR and had ROSC quickly itself. Patient was intubated and was transferred to ICU Started on amnio drip Electrolytes monitor replace accordingly
[2024-09-07] MEDS ORDERED: SODIUM CHLORIDE 0.9% 10ML INJ IV PRN (04:30)
[2024-09-07 05:13] LABS: Absolute Eosinophils 0.1 K/uL (0-0.5); Absolute Lymphocytes (CBC) 2.5 K/uL (0.7-4.9); Absolute Monocytes 1.2 K/uL (0.1-1.3); Absolute Neutrophil 7.1 K/uL (1.8-8.0); Basophils % 0.2 % (0-1.3); Hematocrit 34.3 % (39.6-49.0); Hemoglobin 11.6 g/dL (13.6-17.9); Lymphocytes % 22.9 % (15.3-44.8); MCH 29.4 pg (27.0-35.0); MCHC 33.9 g/dL (32.0-36.0); MCV 86.7 fL (80-100); MPV 8.4 fL (7.6-11.3); Monocytes % 10.9 % (3.3-12.3); Nucleated Red Blood Cells % 0.1 % (0-0); Platelets 144 thou/uL (152-406); RBC Red Blood Cell Count 3.95 M/uL (4.33-5.43); Red Cell Distribution Width 14.8 % (12.1-15.2)
[2024-09-07 05:30] LABS: AST/SGOT 46 U/L (15-37); Albumin 2.7 g/dL (3.4-5.0); Albumin/Globulin Ratio 0.7 (1.1-1.8); Alkaline Phosphatase 174 U/L (45-117); BUN Blood Urea Nitrogen 30 mg/dL (7-18); Bicarbonate 25 mEq/L (21-32); Bilirubin Total 0.6 mg/dL (0.2-1.0); Globulin 3.8 g/dL (2.3-3.5); Glomerular Filtration Rate 49 ml/min (=/>90); Glucose Level 113 mg/dL (74-106); Magnesium 2.1 mg/dL (1.6-2.4); Protein, Total 6.5 g/dL (6.4-8.2); Sodium Level 141 mEq/L (136-145)
[2024-09-07] MEDS: AMIODARONE IN DEXTROSE,ISO-OSM 0 MG/0 ML BAG IV ONE (05:40)
[2024-09-07 05:41] LABS: ALT/SGPT < 14 U/L (16-61)
--- NOTE | 2024-09-07 07:10 | P.PN ---
Date of Service: 09/07/24 Subjective: Code blue called overnight. Pt developed V. tach with cardiac arrest. Had ROSC after 2 rounds of compressions Patient was intubated and transferred to ICU overnight Urine is clearing up. More yellow in color. No pink/red tinge Family in room states that there may have been 2 locations that their building equipment inspector was planning to stent in the near future but not exactly sure on details states their doctors wanted to take care of his aortic stenosis / valve replacement before proceeding with any further procedures Physical Exam: GEN: Sedated, on Vent; Opens eyes CV: Regular rate and rhythm, trace edema Pulm: Nonlabored respirations on vent 50% FIO2 ABD: soft, nontender, nondistended MSK: Right hand tenderness with mild erythema wrist/knuckle Neuro: moves all extremities Problem List: Acute metabolic encephalopathy, unknown etiology NSTEMI Paroxysmal Atrial Fibrillation Hematuria, improving TREMAYNE Hypertension Hyperlipidemia GERD Hx QT prolongation Hx CAD s/p PCI Hx Aortic valve replacement (Apr 2024) Hx Iron deficiency anemia Hx GI bleed / GERD Hx CVA with cerebral artery occlusion Acute metabolic encephalopathy, unknown etiology Unclear exact etiology On admission, presents with intermittent confusion, chills, R forearm pain. Unsure if medication is playing a role. Family did report recently being started on Anastrozole this past by their urologist (~1 day prior to symptoms) CT head and Forearm xray both negative for any acute findings. Chest xray suggestive of possible left-sided pneumonia vs pleural effusion vs atelectasis Given Rocephin/Azithromycin in ED Given the uncertainty, continue IV Rocephin for now (09/05-); azithro dc'd given afib history Blood cx (09/05): NGTD family deny any recent change in respiratory status / symptoms Repeat chest xray not suggestive of pneumonia. Lungs are hypoinflated and grossly clear. No consolidations. NSTEMI Paroxysmal Atrial Fibrillation Hx QT prolongation Hx CAD s/p PCI Code blue called overnight. Pt developed V. tach with cardiac arrest. Had ROSC after 2 rounds of compressions Patient intubated and transferred to ICU Wean vent / sedation as tolerated Troponins elevated but trended flat; 11 -> 3033 -> 2542 Started on Amio drip overnight; continue for now Monitor on telemetry Cardio/pulm consulted continue sotalol Start heparin drip Hematuria, improving Hx Aortic valve replacement (Apr 2024) Hx Iron deficiency anemia Hx GI bleed / GERD Family in room report hematuria started sometime 09/05 evening. Urine is very dark Recently underwent Aortic valve replacement in Apr 2024 Iron studies back in Nov 2023 consistent with iron deficiency (Iron 37, tsat% 9) Cardiology and Urology consulted for further recs sees Dr. Antonio - recently seen ~2-3 weeks ago for UTI, completed abx treatment s/p 1st dose of Anastrozole last Urine is clearing up. More yellow in color. No pink/red tinge seen hold eliquis for now. Monitor Hgb IV protonix TREMAYNE on CKD2 Continue to monitor renal function Monitor and replete electrolytes as needed Renal function stable Daily labs Hypertension Hyperlipidemia Hx CVA with cerebral artery occlusion confirm home meds, restart as appropriate resume home carbidopa/levodopa, donepezil, ezetimbe, memantine, statin VTE: eliquis dc'd 09/06 GI: Protonix Code: Full Continue ICU level of care Wean vent/sedation Time Spent Managing Pts Care (In Minutes): 55
[2024-09-07] MEDS ORDERED: ETOMIDATE 20 MG/10 ML VIAL IV ONE (08:30)
[2024-09-07 09:01] LABS: Protime INR 1.71
[2024-09-07] MEDS ORDERED: NA CHLORIDE 0.9% 250 ML ONE (09:04)
[2024-09-07] MEDS: PANTOPRAZOLE 40 MG INJ IVP SCH (09:35)
[2024-09-07] MEDS: HEPARIN 5000 UNIT/ML 1 ML VIAL IV ONE (09:36)
[2024-09-07] MEDS: HEPARIN/D5W 25,000 UNIT/500 ML BAG IV PRN (09:37)
[2024-09-07] MEDS ORDERED: HEPARIN 5000 UNIT/ML 1 ML VIAL IV ONE (09:45)
--- NOTE | 2024-09-07 11:19 | ECHO ---
HEIGHT: 5 ft 6 in WEIGHT: 196 lb 0 oz DATE OF STUDY: 09/07/[address]: Elpidio Gordon MD 2-DIMENSIONAL: YES M.MODE: YES DOPPLER: YES COLOR FLOW: YES TDS: YES PORTABLE: YES DEFINITY: BUBBLE STUDY: DIAGNOSIS: STATUS POST CARDIAC ARREST CARDIAC HISTORY: CATHERIZATION: YES SURGERY: YES PROSTHETIC VALVE: YES PACEMAKER: NO MEASUREMENTS (cm) DIASTOLIC (NORMALS) SYSTOLIC (NORMALS) IVSd 1.2 (0.6-1.2) LA Diam (1.9-4.0) LVEF 60-65% LVIDd 5.2 (3.5-5.7) LVIDs 2.9 (2.0-3.5) %FS 45% LVPWd 1.2 (0.6-1.2) Ao Diam 2.8 (2.0-3.7) 2 DIMENSIONAL ASSESSMENT: RIGHT ATRIUM: NOT SEEN LEFT ATRIUM: NOT SEEN RIGHT VENTRICLE: NOT SEEN LEFT VENTRICLE: NORMAL TRICUSPID VALVE: TRACE TRICUSPID REGURGITATION MITRAL VALVE: NORMAL PULMONIC VALVE: NOT SEEN AORTIC VALVE: NOT SEEN PERICARDIAL EFFUSION: NONE AORTIC ROOT: NOT SEEN LEFT VENTRICULAR WALL MOTION: NORMAL DOPPLER/COLOR FLOW: DIASTOLIC DYSFUNCTION COMMENTS: 1. POOR IMAGES, TECHNICALLY DIFFICULT STUDY 2. NORMAL LEFT VENTRICULAR SYSTOLIC FUNCTION, EJECTION FRACTION 60-65%, HARD TO ASSESS WALL MOTION 3. DIASTOLIC DYSFUNCTION TECHNOLOGIST: TIA KUMAR
--- NOTE | 2024-09-07 11:40 | P.CNS ---
Date of Consult: 09/07/24 Chief Complaint: Pneumonia History of Present Illness: Patient with PMH of complex CAD, PCI LAD in the past, ODETTE presented with generalized weakness, was getting treated for possible PNA, developed mild hematuria during hospital stay, yesterday he went in VT, no pulse so CPR intiate d and ROSC acheived after 2 minutes, currently intubated, vitals stable on amiodarone drip. Allergies baclofen Allergy (Mild, Verified 11/17/23 08:23) Shortness of breath Home medications list reviewed: Yes Home Medications: Aspirin [Aspirin EC 325 MG] 325 mg PO DAILY 04/17/20 Ubidecarenone [Co Q-10] 100 mg PO DAILY 04/17/20 Apixaban [Eliquis *] 2.5 mg PO BID #60 tablet 04/19/20 Cyanocobalamin [Vitamin B-12*] 1,000 mcg PO DAILY 02/15/23 Donepezil HCl [Aricept] 10 mg PO DAILY 02/15/23 Gabapentin 600 mg PO BEDTIME 02/15/23 Memantine HCl 10 mg PO DAILY 02/15/23 Rosuvastatin [Crestor*] 10 mg PO DAILY 02/15/23 Carbidopa/Levodopa [Carbidopa-Levo ER 25-100 Tab] 25 - 100 mg PO BID 11/17/23 Metoprolol Tartrate [Lopressor*] 12.5 mg PO DAILY 11/17/23 Sotalol HCl [Sotalol AF] 80 mg PO BID 11/17/23 - Past Medical/Surgical History Diabetic: No -: sleep apnea, back pain, ruptured disc, reflux -: Afib -: HTN -: HLD -: CAD -: CKD (Dr. 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 moist/pink, EOMI, Sclerae nonicteric Neck: Supple, 2+ carotid pulse no bruit, No LAD, Without JVD or thyroid abnormality Respiratory: Clear to auscultation bilaterally, Normal air movement Cardiovascular: Regular rate/rhythm, Normal S1 S2 Gastrointestinal: Normal bowel sounds, No tenderness Musculoskeletal: No tenderness Integumentary: No rashes Neurological: Normal gait, Normal speech, Normal tone, Normal affect Lymphatics: No axilla or inguinal lymphadenopathy - Problems (1) Cardiac arrest Current Visit: Yes Status: Acute Plan: Patient with history of complex CAD, went into VT and arrested, troponin up to 3000 and down trending, currently stable patient will need coronary angiogram, explained to patient who wanted me to contact his artificial flowers dyer (Dr. Abdalla) and plan is to transfer patient to [facility] as he is high risk. continue ASA 81 mg daily continue Heparin drip ACS protocol Echo done, poor images but roughly normal EF. (2) History of transcatheter aortic valve implantation (ODETTE) Current Visit: Yes Status: Acute Plan: was not well visualized on echo (3) Chronic atrial fibrillation Current Visit: No Status: Acute Plan: currently on Amiodarone drip and Heparin.
--- NOTE | 2024-09-07 12:10 | P.CNS ---
Date of Consult: 09/07/24 Reason for Consult: S/P cardiac arrest on vent Chief Complaint: Cardiac arrest History of Present Illness: Pt Vtach currently on vent Aw AMS , HX of CAD Allergies baclofen Allergy (Mild, Verified 11/17/23 08:23) Shortness of breath Home Medications: Aspirin [Aspirin EC 325 MG] 325 mg PO DAILY 04/17/20 Ubidecarenone [Co Q-10] 100 mg PO DAILY 04/17/20 Apixaban [Eliquis *] 2.5 mg PO BID #60 tablet 04/19/20 Cyanocobalamin [Vitamin B-12*] 1,000 mcg PO DAILY 02/15/23 Donepezil HCl [Aricept] 10 mg PO DAILY 02/15/23 Gabapentin 600 mg PO BEDTIME 02/15/23 Memantine HCl 10 mg PO DAILY 02/15/23 Rosuvastatin [Crestor*] 10 mg PO DAILY 02/15/23 Carbidopa/Levodopa [Carbidopa-Levo ER 25-100 Tab] 25 - 100 mg PO BID 11/17/23 Metoprolol Tartrate [Lopressor*] 12.5 mg PO DAILY 11/17/23 Sotalol HCl [Sotalol AF] 80 mg PO BID 11/17/23 - Past Medical/Surgical History Diabetic: No -: sleep apnea, back pain, ruptured disc, reflux -: Afib -: HTN -: HLD -: CAD -: CKD (Dr. 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 tach admitted to the hospital for altered mental status currently stable on the ventilator labs reviewed chest x-ray is clear endotracheal tube and NG tube are both in satisfactory position renal function is mildly abnormal troponins are elevated BNP is also elevated white count is mildly abnormal plan to wean him off from the ventilator cardiology has been consulted heparin started oxygen requirement is 50% echocardiogram shows diastolic heart failure patient to be transferred to an [facility] facility for a cardiac cath
[2024-09-07 17:11] VITALS: BP 165/82; TEMP 97.2
[2024-09-07] MEDS ORDERED: AMIODARONE IN DEXTROSE,ISO-OSM 360 MG/200 ML BAG IV ONE (17:15)
[2024-09-07] MEDS: AMIODARONE HCL 900 MG in Dextrose 5%-Water 482 ML IV SCH (17:16)
[2024-09-07] MEDS ORDERED: [UNRECOGNIZED DRUG - OTHER] IV ONE (17:34)
--- NOTE | 2024-09-07 20:57 | P.PN ---
Date of Service: 09/07/24 Vital Signs Temp Pulse Resp BP Pulse Ox 97.2 F 55 20 165/82 H 100 09/07/24 17:00 09/07/24 17:39 09/07/24 17:39 09/07/24 17:39 09/07/24 17:39 Microbiology Results 09/05/24 00:45 Blood - Blood Aerobic Blood Culture - Preliminary No growth in 24 hours. 09/05/24 00:45 Blood - Blood Anaerobic Blood Culture - Preliminary No growth in 24 hours. 09/05/24 00:53 Blood - Blood Aerobic Blood Culture - Preliminary No growth in 24 hours. 09/05/24 00:53 Blood - Blood Anaerobic Blood Culture - Preliminary No growth in 24 hours. Assessment/ Plan: Nephrology Vtach arrest overnight and transferred to ICU Limited IH/ ROS due to intubation Case reviewed with the at the bedside Vitals, medications, blood work and imaging reviewed in the chart General: Cooperative, NAD HEENT: Atraumatic Neck: Supple Respiratory: Intubated/ CTA Cardiovascular: No edema, Regular rate/rhythm Gastrointestinal: Soft and benign, Non-distended Musculoskeletal: No clubbing, No contractures Integumentary: No rashes, No cyanosis Neurological: Normal speech [place] dark Laboratory Data (last 24 hrs) 09/05/24 09/05/24 09/05/24 00:53 00:53 00:53 WBC 14.30 H Hgb 12.5 L Hct 36.9 L Plt Count 132 L PT 20.8 H INR 1.88 APTT 40.4 H Sodium 142 Potassium 4.4 BUN 25 H Creatinine 1.62 H Glucose 131 H Total Bilirubin 1.1 H AST 12 L ALT < 14 L Alkaline Phosphatase 154 H Imagings Data: EXAM: XR Chest, 1 View CLINICAL HISTORY: The patient is 84 years old and is Male; rigors TECHNIQUE: Frontal view of the chest. COMPARISON: No relevant prior studies available. FINDINGS: Lungs: See below. Pleural space: Left hemidiaphragm is somewhat obscured which can be seen with left pleural effusion, as well as left lower lobe consolidation or atelectasis. No pneumothorax. Heart: Unremarkable. Mediastinum: Unremarkable. Normal mediastinal contour. Bones/joints: No acute findings. IMPRESSION: Left hemidiaphragm is somewhat obscured which can be seen with left pleural effusion, as well as left lower lobe consolidation or atelectasis. Conclusions/Impression: Stage I TREMAYNE may be due to hypovolemia CKD II with Proteinuria -No NSAIDs HTN with CKD Paroxysmal Afib Hx AVR Apr 2024 -Continue Sotalol Anemia in chronic illness Thrombocytopenia -Monitor CBC Lobar PNA -Continue Abx Acute respiratory failure sp intubation -Ventilatory support as ordered; wean as tolerated Vtach Cardiac Arrest Elevated troponin -Cardiology following Hospitalist note reviewed Case reviewed with Dr. Terry Patient care 35min
--- NOTE | 2024-09-08 06:47 | P.DS ---
Admission Date: 09/05/24 Discharge Date: 09/07/24 Disposition: TRANSFER TO [facility] Discharge Condition: CRITICAL Reason for Admission: Cardiac arrest Consultations: Cardiology - Dr. Becerril Pulmonology - Dr. Gordon Brief History of Present Illness: 84 yo M, PMH: atrial fibrillation, hypertension, hyperlipidemia, history of mitral valve replacement, CAD Patient came to ER with fever chills and intermittent altered mentation. Patient is a poor historian hence most of the history is obtained from chart review and also talking to the ER physician. Patient woke up tonight shaking, and has had intermittent episodes of altered mental status. Denies any chest pain or shortness of breath. No nausea vomiting or diarrhea. No sick contacts. Patient was assessed in the ER and was admitted for further management of pneumonia Hospital Course: Problem List: Acute metabolic encephalopathy, unknown etiology NSTEMI Paroxysmal Atrial Fibrillation Hematuria, improving [place] Hypertension Hyperlipidemia GERD Hx QT prolongation Hx CAD s/p PCI Hx Aortic valve replacement (Apr 2024) Hx Iron deficiency anemia Hx GI bleed / GERD Hx CVA with cerebral artery occlusion Patient presented with intermittent confusion, altered mentation, subjective chills, right forearm pain. Unclear exact etiology. Chest xray on admission was concerning for possible left-sided pneumonia vs pleural effusion vs atelectasis. Given the uncertaintly / his mentation, patient was empirically started on antibiotics to cover possible infection. Repeat chest xray was not suggestive of pneumonia. Lungs were grossly clear without evidence of consolidations. Dr. Gordon, pulm was consulted and felt that this was unlikely to be pneumonia. 09/06 evening patient was noted to have an episode of pulseless V-tach with cardiac arrest. ROSC was attained after 2 rounds of chest compressions. Patient was intubated, stared on an amiodarone drip and transferred to ICU. Troponin's were noted to be elevated but trended flat (11 -> 3k -> 2.5k). Cardiology was consulted. Given his extensive cardiac history, Cardiology recommended left heart cath to further evaluate and rule out obstructive coronary artery disease. After discussing plan of care with patient and family in room, family have requested to be transferred to [facility] for continuity of care / patient preference as they would like to do any further work up or procedures with their primary information systems consultant Dr. Abdalla and his team. Patient was also noted to develop hematuria the evening of 09/05. Urine at the time was noted to be very dark. Unclear exact etiology. Patient denied any trauma. He does report having similar issues in the past and has been following up with Dr. Antonio (Urologist). Eliquis was discontinued after reported hematuria and urine cleared up within ~24-48 hrs. Urine has been more yellow in the last 24 hours without any pink/red/dark tinge. Hemoglobin has remained stable in the 11-12s throughout hospitalization. Recommend following up with Urology in the near future for further discussion. Physical Exam: GEN: On Vent; Opens eyes CV: Regular rate and rhythm, trace edema Pulm: Nonlabored respirations on vent 50% FIO2 ABD: soft, nontender, nondistended MSK: Right hand tenderness with mild erythema wrist/knuckle Neuro: moves all extremities Vital Signs/Physical Exam: Temp Pulse Resp BP Pulse Ox 97.2 F 55 20 165/82 H 100 09/07/24 17:00 09/07/24 17:39 09/07/24 17:39 09/07/24 17:39 09/07/24 17:39 Laboratory Data at Discharge: WBC 11.00 thou/uL (4.3-10.9) H 09/07/24 05:00 Hgb 11.6 g/dL (13.6-17.9) L 09/07/24 05:00 Hct 34.3 % (39.6-49.0) L 09/07/24 05:00 Plt Count 144 thou/uL (152-406) L 09/07/24 05:00 PT 19.0 SECONDS (10-13.0) H 09/07/24 08:24 INR 1.71 09/07/24 08:24 APTT 100.9 SECONDS (27.2-37.4) H 09/07/24 13:31 Sodium 141 mEq/L (136-145) 09/07/24 05:00 Potassium 4.0 mEq/L (3.5-5.1) 09/07/24 05:00 BUN 30 mg/dL (7-18) H 09/07/24 05:00 Creatinine 1.44 mg/dL (0.70-1.30) H 09/07/24 05:00 Glucose 113 mg/dL (74-106) H 09/07/24 05:00 Phosphorus 2.5 mg/dL (2.5-4.9) 09/07/24 01:00 Magnesium 2.1 mg/dL (1.6-2.4) 09/07/24 05:00 Total Bilirubin 0.6 mg/dL (0.2-1.0) 09/07/24 05:00 AST 46 U/L (15-37) H 09/07/24 05:00 ALT < 14 U/L (16-61) L 09/07/24 05:00 Alkaline Phosphatase 174 U/L (45-117) H 09/07/24 05:00 Home Medications: Aspirin [Aspirin EC 325 MG] 325 mg PO DAILY 04/17/20 Ubidecarenone [Co Q-10] 100 mg PO DAILY 04/17/20 Apixaban [Eliquis *] 2.5 mg PO BID #60 tablet 04/19/20 Cyanocobalamin [Vitamin B-12*] 1,000 mcg PO DAILY 02/15/23 Donepezil HCl [Aricept] 10 mg PO DAILY 02/15/23 Gabapentin 600 mg PO BEDTIME 02/15/23 Memantine HCl 10 mg PO DAILY 02/15/23 Rosuvastatin [Crestor*] 10 mg PO DAILY 02/15/23 Carbidopa/Levodopa [Carbidopa-Levo ER 25-100 Tab] 25 - 100 mg PO BID 11/17/23 Metoprolol Tartrate [Lopressor*] 12.5 mg PO DAILY 11/17/23 Sotalol HCl [Sotalol AF] 80 mg PO BID 11/17/23 Physician Discharge Instructions: Patient presented with intermittent confusion, altered mentation, subjective chills, right forearm pain. Unclear exact etiology. Chest xray on admission was concerning for possible left-sided pneumonia vs pleural effusion vs atelectasis. Given the uncertaintly / his mentation, patient was empirically started on antibiotics to cover possible infection. Repeat chest xray was not suggestive of pneumonia. Lungs were grossly clear without evidence of consolidations. Dr. Gordon pulm was consulted and felt that this was unlikely to be pneumonia. 09/06 evening patient was noted to have an episode of pulseles V-tach with cardiac arrest. ROSC was attained after 2 rounds of chest compressions. Patient was intubated, stared on an amiodarone drip and transferred to ICU. Troponin's were noted to be elevated but trended flat (11 -> 3k -> 2.5k). Cardiology was consulted. Given his extensive cardiac history, Cardiology recommended left heart cath to further evaluate and rule out obstructive coronary artery disease. After discussing plan of care with patient and family in room, family have requested to be transferred to [facility] for continuity of care / patient preference as they would like to do any further work up or procedures with their primary information systems consultant Dr. Abdalla and his team. Patient was also noted to develop hematuria the evening of 09/05. Urine at the time was noted to be very dark. Unclear exact etiology. Patient denied any trauma. He does report having similar issues in the past and has been following up with Dr. Antonio (Urologist). Eliquis was discontinued after reported hematuria and urine cleared up within ~24-48 hrs. Urine has been more yellow in the last 24 hours without any pink/red/dark tinge. Hemoglobin has remained stable in the 11-12s throughout hospitalization. Recommend following up with Urology in the near future for further discussion. Followup: Agustín Daniel DO [Primary Care Provider] - Time spent managing pt's care (in minutes): 45
== END 2024-09-07 17:35 | disposition short-term general hospital (02) | DRG 70 ==
LOC: ER 00:32 → ERHOLD 03:53 → 2ND 16:50 → 3RD-ICU 09-06 23:17
PROVIDERS: ADMIT Family Medicine; ATTEND Hospitalist
PROC: 0DH67UZ Insertion of Feeding Device into Stomach, Via Natural or Artificial Opening (ICD-10-PCS; 2024-09-05)
PROC: 0T9B70Z Drainage of Bladder with Drainage Device, Via Natural or Artificial Opening (ICD-10-PCS; 2024-09-05)
PROC: 5A12012 Performance of Cardiac Output, Single, Manual (ICD-10-PCS; principal; 2024-09-06)
PROC: 5A1935Z Respiratory Ventilation, Less than 24 Consecutive Hours (ICD-10-PCS; 2024-09-06)
PROC: 0BH17EZ Insertion of Endotracheal Airway into Trachea, Via Natural or Artificial Opening (ICD-10-PCS; 2024-09-06)
PROC: 02HV33Z Insertion of Infusion Device into Superior Vena Cava, Percutaneous Approach (ICD-10-PCS; 2024-09-06)
PROC: 4A033R1 Measurement of Arterial Saturation, Peripheral, Percutaneous Approach (ICD-10-PCS; 2024-09-07)
DX: G93.41 Metabolic encephalopathy (principal); I21.4 Non-ST elevation (NSTEMI) myocardial infarction; J96.00 Acute respiratory failure, unspecified whether with hypoxia or hypercapnia; I47.20 Ventricular tachycardia, unspecified; N17.9 Acute kidney failure, unspecified; I48.0 Paroxysmal atrial fibrillation; E78.00 Pure hypercholesterolemia, unspecified; I12.9 Hypertensive chronic kidney disease with stage 1 through stage 4 chronic kidney disease, or unspecified chronic kidney disease; N18.2 Chronic kidney disease, stage 2 (mild); D63.1 Anemia in chronic kidney disease; D69.6 Thrombocytopenia, unspecified; I25.10 Atherosclerotic heart disease of native coronary artery without angina pectoris; R31.9 Hematuria, unspecified; Z95.2 Presence of prosthetic heart valve; Z95.5 Presence of coronary angioplasty implant and graft; Z79.82 Long term (current) use of aspirin; Z79.01 Long term (current) use of anticoagulants; Z79.899 Other long term (current) drug therapy
CPT/HCPCS: 36415; 36600; 70450; 71045; 80053; 81003; 82805; 82947; 83605; 83735; 83880; 84100; 84484; 85025; 85610; 85730; 87040; 92950; 93005; 93306; 94002; 94760; 96365; 99285; J0282; J0330; J0456; J0696; J1644; J2003; J2250; J2470; J2704; J7050; J7060